=== PATIENT | female | born 1960 | race Asian ===

== ENCOUNTER 2017-10-25 14:35 | Outpatient (REF) | payer OTHER, SELFPAY | END 2017-10-25 14:55 | LOC: NCHCN 14:35 | PROVIDERS: PCP Specialist/Technologist Athletic Trainer; Visit Provider Specialist/Technologist Athletic Trainer | DX: N39.0 Urinary tract infection, site not specified (principal) | CPT/HCPCS: 87077; 87086; 87186 ==

== ENCOUNTER 2017-12-25 05:02 | Emergency (ER) | payer OTHER, SELFPAY ==
[2017-12-25 05:10] VITALS: BP 138/74; PULSE 110; RESP 16; TEMP 36.6; O2SAT 98
--- NOTE | 2017-12-25 05:31 | W.ED.GENAD ---
Discharge Plan Disposition Patient Disposition: HOME Discharge Details Chief Complaint: Sorethroat Clinical Impression: Acute streptococcal pharyngitis Primary Care Provider: Kyle Bustos ED Provider: Chepe Becerra Home Meds and New Rx's Prescriptions: Continue lancets [OneTouch Delica Lancets] 1 EACH misc 1 ea Miscellaneous DAILY Qty: 100 RF: 4 AEROCHAMBER 1 EACH spacer 1 ea Miscellaneous PRN Qty: 1 RF: 0 albuterol sulfate 8.5 GM HFA aerosol inhaler 1 - 2 puff Inhalation Q6H PRN Qty: 1 RF: 0 albuterol sulfate 8.5 GM HFA aerosol inhaler 1 - 2 puff Inhalation Q4H PRN Qty: 1 RF: 0 blood sugar diagnostic [OneTouch Ultra Test] 1 EACH strip 1 strip Miscellaneous DAILY Qty: 100 RF: 4 fluticasone [Flonase Allergy Relief] 9.9 ML spray,suspension 2 spry NS DAILY Qty: 1 RF: 3 simvastatin 40 MG tablet 40 mg PO DAILY Qty: 90 RF: 3 lisinopril 2.5 MG tablet 2.5 mg PO DAILY Qty: 90 RF: 3 mometasone-formoterol [Dulera] 8.8 GM HFA aerosol inhaler 1 - 2 puff Inhalation BID Qty: 120 RF: 11 levothyroxine 88 MCG tablet 88 mcg PO DAILY Qty: 90 RF: 3 metformin 1,000 MG tablet 1,000 mg PO BID Qty: 180 RF: 3 Discharge Instructions Instructions: Strep Throat (ED) Additional Instructions: Please drink plenty of fluid and allow for plenty of rest over the next few day. Please contact your primary care physician to arrange follow-up. Return to the ER for any worsening or new concerning symptoms. Referrals: Kyle Bustos [Primary Care Provider] - Medical Decision Making 57-year-old female with sore throat over the past 1 day, associated fever and body aches. Rapid strep test positive. Plan to treat with ibuprofen, Tylenol, penicillin IM. Patient was encouraged to rest over the next few days drink plenty of fluid. I advised follow-up with her primary care physician. Usual and customary discharge instructions were provided the patient and she verbalized understanding importance of adherence. HPI General Mode of arrival: ambulatory. Date/Time Provider Initiated Documentation: 12/25/17 05:19. Limitations to Documentation: no limitations. Information obtained by: patient. HPI Narrative: 57-year-old female presents with chief complaint of sore throat. Patient notes sore throat started yesterday. Sore throat is now severe. Worse when she swallows. No associated cough. She does have associated diffuse body aches. Related Data Home Medications Medication Instructions Recorded Confirmed lancets [WeYAPTouch Julianna Lancets] #100 ea 06/08/12 albuterol sulfate 1 - 2 puff INHALATION Q6H PRN #1 05/24/13 12/25/17 inhaler albuterol sulfate 1 - 2 puff INHALATION Q4H PRN #1 08/13/14 12/25/17 inhaler blood sugar diagnostic [WeYAPTouch #100 strip 08/20/14 Ultra Test] fluticasone [Flonase Allergy 2 spry NS DAILY #1 bottle 02/07/16 12/25/17 Relief] simvastatin 40 mg PO DAILY #90 tab-cap 09/08/16 12/25/17 lisinopril 2.5 mg PO DAILY #90 tab 12/01/16 12/25/17 mometasone-formoterol [Dulera] 1 - 2 puff INHALATION BID #120 puff 01/06/17 12/25/17 levothyroxine 88 mcg PO DAILY #90 tab-cap 01/21/17 12/25/17 metformin 1,000 mg PO BID #180 tab-cap 04/20/17 12/25/17 Previous Rx's Medication Instructions Recorded lisinopril 2.5 mg PO DAILY #90 tab 12/01/16 mometasone-formoterol [Dulera] 1 - 2 puff INHALATION BID #120 puff 01/06/17 levothyroxine 88 mcg PO DAILY #90 tab-cap 01/21/17 metformin 1,000 mg PO BID #180 tab-cap 04/20/17 Allergies Allergy/AdvReac Type Severity Reaction Status Date / Time No Known Allergies Allergy Unverified 12/25/17 05:15 General Stated Complaint: Sorethroat PARDEEP: 3 Review of Systems Review of Systems All systems reviewed & are unremarkable except as noted in HPI and below ENT Reports as per HPI Genitourinary Comments: chronic intermittent flank pain bilateral PFSH Family History Mother Essential hypertension Hyperlipidemia Father Heart disease Hyperlipidemia Cerebrovascular accident Brother Essential hypertension Cerebrovascular accident Grandfather Essential hypertension Cerebrovascular accident Grandfather Essential hypertension Cerebrovascular accident Grandmother Essential hypertension Cerebrovascular accident Grandmother Cerebrovascular accident Brother Cerebrovascular accident Son No problems noted. Daughter No problems noted. Daughter No problems noted. Medical History Asthma DM (diabetes mellitus) Heart murmur Hypothyroidism Obstructive sleep apnea reactive lung disease Social History Smoking/Tobacco Use Status: Never Surgical History Colonoscopy - MAC (09/30/15) Exam Const General: cooperative and no acute distress HENMT Head: normocephalic and atraumatic Mouth: moist mucous membranes Throat: abnormal tonsil bilaterally erythema and exudates and posterior oropharynx abnormal erythema Eyes Conjunctivae: normal conjunctivae Sclera: normal sclerae EOM: EOM intact bilaterally Neck Neck: trachea midline and supple Resp Auscultation: clear to auscultation bilaterally, no rales, no rhonchi and no wheezes Cardio Jugular venous pressure: no JVD Rate: regular rate and not tachycardic Rhythm: regular rhythm Heart Sounds: murmur systolic II/ GI Palpation: soft, not firm, no guarding, no masses, not rigid and nontender Skin General skin exam: no rashes or lesions noted Neuro General: alert, awake, oriented x3 and tone normal Extrem General: no edema Course Vital Signs Temperature 36.6 C 12/25/17 05:10 Pulse 110 H 12/25/17 05:10 Respiratory Rate 16 12/25/17 05:10 Blood Pressure 138/74 12/25/17 05:10 Pulse Oximetry 98 12/25/17 05:10 Temperature 36.6 C 12/25/17 05:10 Temperature Source Temporal Artery Scan 12/25/17 05:10 Pulse 110 H 12/25/17 05:10 Respiratory Rate 16 12/25/17 05:10 Respiratory Effort 12/25/17 05:13 Blood Pressure 138/74 12/25/17 05:10 Blood Pressure Position Sitting 12/25/17 05:10 Pulse Oximetry 98 12/25/17 05:10 Oxygen Delivery Method Room Air 12/25/17 05:10 Oxygen Flow Rate 0 11/10/18 05:10 Pain Level 6 12/25/17 05:10 Lab/Test Results Lab/Test Results: POC Strep Test-ROXANNA(Rapid) Start: 12/25/17 05:17 Freq: .Rapid Strep Test Status: Active Protocol: Document 12/25/17 05:22 BS (Rec: 12/25/17 05:22 BS [id number]) Strep test-ROXANNA(Rapid)-POC POC-Strep test-ROXANNA (Rapid) Positive POC-Strep test-ROXANNA (Rapid) Positive
[2017-12-25] MEDS: Acetaminophen 325 MG TAB 650 MG PO (05:38)
[2017-12-25] MEDS: Ibuprofen 400 MG TAB PO (05:38)
--- NOTE | 2017-12-25 05:39 | ED.GENADUL_ITS ---
Discharge Plan Disposition Patient Disposition: HOME Discharge Details Chief Complaint: Sorethroat Clinical Impression: Acute streptococcal pharyngitis Primary Care Provider: Kyle Bustos ED Provider: Chepe Becerra Home Meds and New Rx's Prescriptions: Continue lancets [OneTouch Delica Lancets] 1 EACH misc 1 ea Miscellaneous DAILY Qty: 100 RF: 4 AEROCHAMBER 1 EACH spacer 1 ea Miscellaneous PRN Qty: 1 RF: 0 albuterol sulfate 8.5 GM HFA aerosol inhaler 1 - 2 puff Inhalation Q6H PRN Qty: 1 RF: 0 albuterol sulfate 8.5 GM HFA aerosol inhaler 1 - 2 puff Inhalation Q4H PRN Qty: 1 RF: 0 blood sugar diagnostic [OneTouch Ultra Test] 1 EACH strip 1 strip Miscellaneous DAILY Qty: 100 RF: 4 fluticasone [Flonase Allergy Relief] 9.9 ML spray,suspension 2 spry NS DAILY Qty: 1 RF: 3 simvastatin 40 MG tablet 40 mg PO DAILY Qty: 90 RF: 3 lisinopril 2.5 MG tablet 2.5 mg PO DAILY Qty: 90 RF: 3 mometasone-formoterol [Dulera] 8.8 GM HFA aerosol inhaler 1 - 2 puff Inhalation BID Qty: 120 RF: 11 levothyroxine 88 MCG tablet 88 mcg PO DAILY Qty: 90 RF: 3 metformin 1,000 MG tablet 1,000 mg PO BID Qty: 180 RF: 3 Discharge Instructions Instructions: Strep Throat (ED) Additional Instructions: Please drink plenty of fluid and allow for plenty of rest over the next few day. Please contact your primary care physician to arrange follow-up. Return to the ER for any worsening or new concerning symptoms. Referrals: Kyle Bustos [Primary Care Provider] - Medical Decision Making 57-year-old female with sore throat over the past 1 day, associated fever and body aches. Rapid strep test positive. Plan to treat with ibuprofen, Tylenol, penicillin IM. Patient was encouraged to rest over the next few days drink plenty of fluid. I advised follow-up with her primary care physician. Usual and customary discharge instructions were provided the patient and she verbalized understanding importance of adherence. HPI General Mode of arrival: ambulatory . Date/Time Provider Initiated Documentation: 12/25/17 05:19 . Limitations to Documentation: no limitations . Information obtained by: patient . HPI Narrative: 57-year-old female presents with chief complaint of sore throat. Patient notes sore throat started yesterday. Sore throat is now severe. Worse when she swallows. No associated cough. She does have associated diffuse body aches. Related Data Home Medications Medication Instructions Recorded Confirmed lancets [ETF SecuritiesTouch Julianna Lancets] #100 ea 06/08/12 albuterol sulfate 1 - 2 puff INHALATION Q6H PRN #1 05/24/13 12/25/17 inhaler albuterol sulfate 1 - 2 puff INHALATION Q4H PRN #1 08/13/14 12/25/17 inhaler blood sugar diagnostic [ETF SecuritiesTouch #100 strip 08/20/14 Ultra Test] fluticasone [Flonase Allergy 2 spry NS DAILY #1 bottle 02/07/16 12/25/17 Relief] simvastatin 40 mg PO DAILY #90 tab-cap 09/08/16 12/25/17 lisinopril 2.5 mg PO DAILY #90 tab 12/01/16 12/25/17 mometasone-formoterol [Dulera] 1 - 2 puff INHALATION BID #120 puff 01/06/1712/02 levothyroxine 88 mcg PO DAILY #90 tab-cap 01/21/17 12/25/17 metformin 1,000 mg PO BID #180 tab-cap 04/20/17 12/25/17 Previous Rx's Medication Instructions Recorded lisinopril 2.5 mg PO DAILY #90 tab 12/01/16 mometasone-formoterol [Dulera] 1 - 2 puff INHALATION BID #120 puff 01/06/17 levothyroxine 88 mcg PO DAILY #90 tab-cap 01/21/17 metformin 1,000 mg PO BID #180 tab-cap 04/20/17 Allergies Allergy/AdvReac Type Severity Reaction Status Date / Time No Known Allergies Allergy Unverified 12/25/17 05:15 General Stated Complaint: Sorethroat PARDEEP: 3 Review of Systems Review of Systems All systems reviewed & are unremarkable except as noted in HPI and below ENT Reports as per HPI Genitourinary Comments: chronic intermittent flank pain bilateral PFSH Family History Mother Essential hypertension Hyperlipidemia Father Heart disease Hyperlipidemia Cerebrovascular accident Brother Essential hypertension Cerebrovascular accident Grandfather Essential hypertension Cerebrovascular accident Grandfather Essential hypertension Cerebrovascular accident Grandmother Essential hypertension Cerebrovascular accident Grandmother Cerebrovascular accident Brother Cerebrovascular accident Son No problems noted. Daughter No problems noted. Daughter No problems noted. Medical History Asthma DM (diabetes mellitus) Heart murmur Hypothyroidism Obstructive sleep apnea reactive lung disease Social History Smoking/Tobacco Use Status: Never Surgical History Colonoscopy - MAC (09/30/15) Exam Const General: cooperative and no acute distress HENMT Head: normocephalic and atraumatic Mouth: moist mucous membranes Throat: abnormal tonsil bilaterally erythema and exudates and posterior oropharynx abnormal erythema Eyes Conjunctivae: normal conjunctivae Sclera: normal sclerae EOM: EOM intact bilaterally Neck Neck: trachea midline and supple Resp Auscultation: clear to auscultation bilaterally, no rales, no rhonchi and no wheezes Cardio Jugular venous pressure: no JVD Rate: regular rate and not tachycardic Rhythm: regular rhythm Heart Sounds: murmur systolic II/ GI Palpation: soft, not firm, no guarding, no masses, not rigid and nontender Skin General skin exam: no rashes or lesions noted Neuro General: alert, awake, oriented x3 and tone normal Extrem General: no edema Course Vital Signs Temperature 36.6 C 12/25/17 05:10 Pulse 110 H 12/25/17 05:10 Respiratory Rate 16 12/25/17 05:10 Blood Pressure 138/74 12/25/17 05:10 Pulse Oximetry 98 12/25/17 05:10 Temperature 36.6 C 12/25/17 05:10 Temperature Source Temporal Artery Scan 12/25/17 05:10 Pulse 110 H 12/25/17 05:10 Respiratory Rate 16 12/25/17 05:10 Respiratory Effort 12/25/17 05:13 Blood Pressure 138/74 12/25/17 05:10 Blood Pressure Position Sitting 12/25/17 05:10 Pulse Oximetry 98 12/25/17 05:10 Oxygen Delivery Method Room Air 12/25/17 05:10 Oxygen Flow Rate 0 11/10/18 05:10 Pain Level 6 12/25/17 05:10 Lab/Test Results Lab/Test Results: POC Strep Test-ROXANNA(Rapid) Start: 12/25/17 05: 17 Freq: .Rapid Strep Test Status: Active Protocol: Document 12/25/17 05:22 BS (Rec: 12/25/17 05:22 BS [id number]) Strep test-ROXANNA(Rapid)-POC POC-Strep test-ROXANNA (Rapid) Positive POC-Strep test-ROXANNA (Rapid) Positive
[2017-12-25 05:44] VITALS: BP 138/74; PULSE 110; RESP 16; TEMP 36.6; O2SAT 98
== END 2017-12-25 05:45 | disposition home or self-care (01) ==
LOC: ER 05:49
PROVIDERS: Emergency Provider Student in an Organized Health Care Education/Training Program; PCP Specialist/Technologist Athletic Trainer
DX: J02.0 Streptococcal pharyngitis (principal); E11.9 Type 2 diabetes mellitus without complications; Z79.84 Long term (current) use of oral hypoglycemic drugs
CPT/HCPCS: 87880; 96372; 99284; J0561

== ENCOUNTER 2018-01-10 09:58 | Outpatient (REF) | payer OTHER, SELFPAY ==
[2018-01-10 21:32] LABS: HCT 37.3 % (36.0-46.0); Mean Corp. HGB Concentration 32.2 g/dL (32.0-36.0); Mean Corpuscular Hemoglobin 28.3 pg (27.0-33.0); Mean Platelet Volume 9.6 fL (8.0-11.0); Platelet Count 284 x1000/uL (130-400); RBC 4.24 m/cumm (4.00-5.20); RBC Distribution Width 14.2 % (11.7-14.6); White Blood Cell Count 5.86 k/cumm (4.4-10.8)
[2018-01-10 21:35] LABS: ALT 27 U/L (12-78); AST 14 U/L (15-37); Albumin 3.9 g/dL (3.4-5.0); Alkaline Phosphatase 47 U/L (46-116); BUN 14 mg/dL (7-18); Bilirubin, Total 0.4 mg/dL (0.2-1.0); CREATININE 0.67 mg/dL (0.55-1.02); Calcium 9.1 mg/dL (8.5-10.1); Chloride 102 mmol/L (98-107); Glucose 231 mg/dL (70-100); Potassium 4.3 mmol/L (3.5-5.1); Sodium 137 mmol/L (136-145); TSH (W/Ref FT4) 0.55 uIU/mL (0.358-3.74); Total Protein 7.6 g/dL (6.4-8.2)
== END 2018-01-10 10:18 ==
LOC: NCHCN 09:58
PROVIDERS: PCP Specialist/Technologist Athletic Trainer; Visit Provider Specialist/Technologist Athletic Trainer
DX: E87.6 Hypokalemia (principal); E11.65 Type 2 diabetes mellitus with hyperglycemia; R53.83 Other fatigue
CPT/HCPCS: 80053; 85027; 84443

== ENCOUNTER 2018-02-28 01:29 | Outpatient (CLI) | payer OTHER, SELFPAY ==
--- NOTE | 2018-02-28 09:02 | DI.RAD_ITS ---
SYMPTOMS/DIAGNOSIS: LOW BACK PAIN, M54.5 LUMBAR SPINE: There is sacralization of L 5. The vertebral bodies are well maintained in height. The disc spaces are well maintained. There are endplate osteophytes seen at L 3 and L 4. There is no scoliosis, spondylolysis or spondylolisthesis. There are mild facet degenerative changes. Surgical clips are seen in the right upper quadrant. IMPRESSION: Mild degenerative changes.
== END 2018-02-28 01:49 ==
PROVIDERS: PCP Specialist/Technologist Athletic Trainer; Visit Provider Specialist/Technologist Athletic Trainer
DX: M54.5 Low back pain (principal); M47.816 Spondylosis without myelopathy or radiculopathy, lumbar region
CPT/HCPCS: 72110

== ENCOUNTER 2018-03-10 00:34 | Outpatient (CLI) | payer OTHER, SELFPAY ==
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
--- NOTE | 2018-03-10 15:56 | DI.VRAD_ITS ---
EXAM: MR Lumbar Spine Without and With Contrast. EXAM DATE/TIME: 03/10/2018 11:50 AM CLINICAL HISTORY: 57 years old, female; Pain; Low back pain and lumbago with sciatica; Bilateral TECHNIQUE: Multiplanar magnetic resonance images of the lumbar spine without and with intravenous contrast. COMPARISON: CR XR lumbar spine complete 02/28/2018 8:46 AM FINDINGS: Vertebrae: Moderate degenerative spondylitic changes. No acute findings. Spinal cord: Normal signal. No cord compression. DISCS/SPINAL CANAL/NEURAL FORAMINA: L1-L2: No significant disc disease. No stenosis. L2-L3: No significant disc disease. No stenosis. L3-L4: Disc desiccation with circumferential disc bulge and moderate canal stenosis secondary to bulging disc and facet and ligamentum hypertrophic changes. There is moderate left and mild right neural foraminal narrowing L4-L5: There is disc desiccation with thin circumferential disc bulge. The bulging disc abuts traversing nerve roots and combined with facet hypertrophic changes causes overall mild circumferential canal stenosis. There is moderate bilateral neural foraminal narrowing. L5-S1: Normal for age without significant stenosis. Kidneys and ureters: Too numerous to count bilateral renal cysts are present. No concerning features of the cyst on this exam, but the cysts are incompletely characterized. Findings are compatible with polycystic kidney disease given the large number of cysts. IMPRESSION: 1. Multilevel degenerative changes. No severe canal or severe neural foraminal stenosis. 2. Polycystic kidney disease. Dictated and Authenticated by: Mart Bertrand MD. Ordering:TABATHA Wright MD
== END 2018-03-10 00:54 ==
PROVIDERS: PCP Specialist/Technologist Athletic Trainer; Visit Provider Specialist/Technologist Athletic Trainer
DX: M54.5 Low back pain (principal); R20.9 Unspecified disturbances of skin sensation; R29.898 Other symptoms and signs involving the musculoskeletal system; M51.17 Intervertebral disc disorders with radiculopathy, lumbosacral region; M47.27 Other spondylosis with radiculopathy, lumbosacral region
CPT/HCPCS: 72148

== ENCOUNTER 2018-04-19 13:09 | Outpatient (CLI) | payer OTHER, SELFPAY ==
--- NOTE | 2018-04-19 06:00 | DI.RAD_ITS ---
SYMPTOM/DIAGNOSIS: LUMBAR SPONDYLOSIS, LUMBAR MEDIAL BRANCH BLOCK C-ARM: Fluoroscopy Time: 72.9 seconds Fluoroscopy was provided for guidance with lumbar spine pain clinic injection. Please see procedure note for details.
[2018-04-19 13:14] VITALS: BP 135/78; PULSE 93; RESP 18; TEMP 37.1; O2SAT 98
--- NOTE | 2018-04-19 14:18 | PDOC.PAIN ---
Pain Clinic Procedure Note Current Active Problems Problem Status Onset Lumbosacral spondylosis without myelopathy Acute Lumbar/Sacral Medial Branch Blocks FEI CRUZ has been referred [facility] the [facility] for lumbar/sacral medial branch blocks. COMMENTS: She was previously evaluated in our clinic Patient was interviewed and the medical record reviewed. There were no medical, pharmacologic, radiographic or other structural contraindications to attempting fluoroscopically guided local anesthetic lumbar/sacral medial branch blocks. Risks and expected side effects as well as potential benefit of the procedure were reviewed and voiced concerns addressed. The printed consent form was signed and witnessed. Standard time-out procedure was performed. Patient was placed in the prone position on the fluoroscopy table and automated blood pressure cuff and pulse oximeter applied. The skin entry points for approaching the anatomic target points of the segmental medial branches of bilateral L3-L5DR were identified with fluoroscopy and marked. Following thorough Chlorhexadine preparation of the skin and draping and 1% lidocaine infiltration of the skin entry points and subcutaneous tissues, a 25 gauge 3.5 spinal needle was placed under fluoroscopic guidance down on to the target point for each respective segmental medial branch.Position was confirmed in A/P, oblique and lateral views with 0.25ml of omnipaque 240. At this point .5ml of 0.5% Bupivacaine was injected at each segmental nerve. The needles were then removed without difficulty. Vital signs were stable throughout the procedure and were as recorded in the docflowsheet by the nursing staff. Follow up plans and appointments were discussed and was instructed to keep careful note of how the usual pain was modified by these injections. Specifically was asked to keep a pain diary for the next 24 hours using a numeric pain scale of 0-10 and report these results at the follow-up visit. Post procedure instruction was given as documented in the nursing documentation and having met discharge criteria. Patient was discharged from the [facility]. Based on the medial branches blocked today, if the patient has adequate relief and we are able to proceed to radiofrequency ablation, the treatment should result in the denervation of the bilateral L4-L5 abd K5-S1 FACET JOINTS. We would expect to denervate a total of 4 facets during the radiofrequency ablation. COMMENTS: She will call back with her 1-4 hour post-procedure pain scores. CC: Kyle Bustos
[2018-04-19 14:27] VITALS: BP 116/81; PULSE 87; RESP 19; O2SAT 100
[2018-04-19] MEDS: Omnipaque 240 MG/ML 50 ML BTL IJ (14:28)
[2018-04-19] MEDS: Bupivacaine 0.5% Pres-Free 10 ML VIAL IJ (14:29)
== END 2018-04-19 13:29 ==
PROVIDERS: PCP Specialist/Technologist Athletic Trainer; Visit Provider Preventive Medicine Occupational Medicine
DX: M47.817 Spondylosis without myelopathy or radiculopathy, lumbosacral region (principal)
CPT/HCPCS: 64493; 64494; 72100; Q9967

== ENCOUNTER 2018-05-04 11:24 | Outpatient (REF) | payer OTHER, SELFPAY ==
[2018-05-04 21:09] LABS: Cholesterol 199 mg/dL (50-200); HDL Cholesterol 54 mg/dL (40-60); LDL CHOLESTEROL 104 mg/dL (<100); Triglyceride 251 mg/dL (30-150)
== END 2018-05-04 11:44 ==
LOC: NCHCN 11:24
PROVIDERS: PCP Specialist/Technologist Athletic Trainer; Visit Provider Specialist/Technologist Athletic Trainer
DX: E78.5 Hyperlipidemia, unspecified (principal)
CPT/HCPCS: 80061; 83721

== ENCOUNTER 2018-05-31 00:13 | Outpatient (CLI) | payer OTHER, SELFPAY ==
--- NOTE | 2018-05-31 07:47 | DI.MAMMO_ITS ---
SYMPTOMS/DIAGNOSIS: SCREENING, PREVENTATIVE CARE, Z00.00 MAMMOGRAMS: Mammograms were interpreted according to the usual protocol including computer analysis with CAD system, tomosynthesis and C view imaging. There are moderate fibronodular densities in both breasts, which somewhat limits the sensitivity of the examination. There is no dominant mass. There are no suspicious calcifications and there has been no significant interval change when compared with prior images. SUMMARY: No evidence of malignancy, category 1. Yearly screening mammography is recommended. Breast density category C. SA ASSESSMENT OF FINDINGS: Negative. Category 1. Patient will receive a letter notifying them of these results. Bi-RADS category C. The breasts are heterogeneously dense, which may obscure small masses.
== END 2018-05-31 00:33 ==
PROVIDERS: PCP Specialist/Technologist Athletic Trainer; Visit Provider Specialist/Technologist Athletic Trainer
DX: Z00.00 Encounter for general adult medical examination without abnormal findings (principal); Z12.31 Encounter for screening mammogram for malignant neoplasm of breast
CPT/HCPCS: 77063; 77067

== ENCOUNTER 2018-06-02 21:18 | Emergency (ER) | payer OTHER, SELFPAY ==
[2018-06-02 21:21] VITALS: BP 158/85; PULSE 109; RESP 16; TEMP 36.7; O2SAT 98
--- NOTE | 2018-06-02 21:23 | W.ED.GENAD ---
Discharge Plan Disposition Patient Disposition: HOME Condition: Good Discharge Details Chief Complaint: Urinary Clinical Impression: Urinary tract infection Primary Care Provider: Kyle Bustos ED Provider: Gio Cardenas [place] Meds and New Rx's Prescriptions: New phenazopyridine [Pyridium] 100 mg tablet 100 mg PO TID 0 Days Qty: 6 RF: 0 nitrofurantoin monohyd/m-cryst [Macrobid] 100 mg capsule 100 mg PO BID Qty: 10 RF: 0 Continued diclofenac sodium 1 % gel 4 gm TP QID PRN (Reason: low back pain) 7 Days Qty: 100 RF: 11 glipizide 5 mg tablet 5 mg PO BID Qty: 90 RF: 0 omeprazole 20 mg capsule,delayed release(DR/EC) 20 mg PO DAILY RF: 0 Flovent HFA 110 mcg/actuation HFA aerosol inhaler 1 puff IH BID RF: 0 lancets [OneTouch Delica Lancets] 1 EACH misc 1 ea Miscellaneous DAILY Qty: 100 RF: 4 AEROCHAMBER 1 EACH spacer 1 ea Miscellaneous PRN Qty: 1 RF: 0 OneTouch Ultra Test 1 EACH strip 1 strip Miscellaneous DAILY Qty: 100 RF: 4 simvastatin 40 MG tablet 40 mg PO DAILY Qty: 90 RF: 3 lisinopril 2.5 MG tablet 2.5 mg PO DAILY Qty: 90 RF: 3 Dulera 8.8 GM HFA aerosol inhaler 1 - 2 puff Inhalation BID Qty: 120 RF: 11 levothyroxine 88 MCG tablet 88 mcg PO DAILY Qty: 90 RF: 3 fluticasone propionate [Flonase Allergy Relief] 50 mcg/actuation spray,suspension 1 spray NS DAILY Qty: 1 RF: 3 Discharge Instructions Instructions: Urinary Tract Infection in Women (ED) Additional Instructions: You do have a urinary tract infection. The Pyridium will help take care of the symptoms. The antibiotic should take care of the infection. Please follow-up with primary care next week. Please return to ED if you develop fever, vomiting, back pain, abdominal pain. Referrals: Kyle Bustos [Primary Care Provider] - Medical Decision Making Patient with classic cystitis symptoms. She is afebrile and has no systemic symptoms. Urine dip positive for blood and leukocytes. Micro pending but given symptoms would treat with Pyridium and Macrobid. Follow-up with primary care next week. Return to ED for fever, chills, vomiting, back pain, abdominal pain. Lab Data Lab results reviewed: Yes I reviewed the patient's lab results. HPI General Mode of arrival: ambulatory. Date/Time Provider Initiated Documentation: 06/02/18 21:21. Limitations to Documentation: no limitations. Information obtained by: patient. HPI Narrative: Patient presents to ED with complaints of dysuria and frequency that started this morning. She has a sense of urgency almost constantly. When she does urinate she has pain and only passes a little bit of urine. She has not had UTIs previously. She denies fevers or chills. She denies any new back pain, she has chronic unchanged back pain. She has no abdominal pain. She has no nausea vomiting. Related Data Home Medications Medication Instructions Recorded Confirmed lancets [OneTouch Delica Lancets] #100 ea 06/08/12 04/19/18 OneTouch Ultra Test #100 strip 08/20/14 04/19/18 simvastatin 40 mg PO DAILY #90 tab-cap 09/08/16 06/02/18 lisinopril 2.5 mg PO DAILY #90 tab 12/01/16 06/02/18 Dulera 1 - 2 puff INHALATION BID #120 puff 01/06/17 06/02/18 levothyroxine 88 mcg PO DAILY #90 tab-cap 01/21/17 06/02/18 fluticasone propionate 110 1 puff IH BID 03/24/18 06/02/18 mcg/actuation HFA aerosol inhaler fluticasone propionate 50 1 spray NS DAILY #1 gm 03/24/18 06/02/18 mcg/actuation nasal spray,suspension glipizide 5 mg tablet 5 mg PO BID #90 tab 03/24/18 06/02/18 omeprazole 20 mg capsule,delayed 20 mg PO DAILY 03/24/18 06/02/18 release diclofenac 1 % topical gel 4 gm TP QID PRN 7 Days #100 gm 03/29/18 06/02/18 nitrofurantoin monohyd/m-cryst 100 mg PO BID #10 cap 06/02/18 [Macrobid] phenazopyridine [Pyridium] 100 mg PO TID 0 Days #6 tab 06/02/18 Previous Rx's Medication Instructions Recorded lisinopril 2.5 mg PO DAILY #90 tab 12/01/16 Dulera 1 - 2 puff INHALATION BID #120 puff 01/06/17 levothyroxine 88 mcg PO DAILY #90 tab-cap 01/21/17 diclofenac 1 % topical gel 4 gm TP QID PRN 7 Days #100 gm 03/29/18 nitrofurantoin monohyd/m-cryst 100 mg PO BID #10 cap 06/02/18 [Macrobid] phenazopyridine [Pyridium] 100 mg PO TID 0 Days #6 tab 06/02/18 Allergies Allergy/AdvReac Type Severity Reaction Status Date / Time No Known Allergies Allergy Unverified 06/02/18 21:27 General Stated Complaint: Urinary PARDEEP: 4 Review of Systems Review of Systems As documented in HPI otherwise negative as below. Const: no fever, chills, weakness Resp: no cough, SOB, pleuritic pain CV: no CP, diaphoresis, edema, syncope GI: no abdominal pain, nausea, vomiting, diarrhea Neuro: no headache, numbness, focal weakness, confusion [facility] Medical History Asthma (Chronic) Back pain (Chronic) DM (diabetes mellitus) (Chronic) Heart murmur (Chronic) Hyperlipidemia (Chronic) Hypothyroidism (Chronic) Obstructive sleep apnea (Chronic) Onychomycosis (Chronic) Polycystic kidney disease (Chronic) Restrictive lung disease (Chronic) Uterine leiomyoma (Chronic) Surgical History Colonoscopy - MAC (Inactive 09/30/15) S/P cholecystectomy (Inactive) Social History Smoking/Tobacco Use Status: Never Alcohol Intake: never Drug use: Never Substance use type: does not use Household members: spouse Housing: house Number of Children: 3 What type of physical activity do you participate in: none Do you feel safe in your relationship?: Yes Exam Narrative Exam Narrative: Vitals: Afebrile. Slightly tachycardic and hypertensive. Const: Obese female in NAD. HEENT: NC/AT. Normal facial exam. GI: Soft. NT/ND. No guarding or rebound. Back: No CVAT. Neuro: A+O x 3. CN grossly in tact. Good strength and no focal deficit. Course Vital Signs Temperature 98.1 F 06/02/18 21:21 Pulse 109 H 06/02/18 21:21 Respiratory Rate 16 06/02/18 21:21 Blood Pressure 158/85 H 06/02/18 21:21 Pulse Oximetry 98 06/02/18 21:21 Temperature 98.1 F 06/02/18 21:21 Temperature Source Skin 06/02/18 21:21 Pulse 109 H 06/02/18 21:21 Respiratory Rate 16 06/02/18 21:21 Blood Pressure 158/85 H 06/02/18 21:21 Pulse Oximetry 98 06/02/18 21:21 Oxygen Delivery Method Room Air 06/02/18 21:21 Oxygen Flow Rate 0 06/02/18 21:21 Pain Level 9 06/02/18 21:21
[2018-06-02 21:29] LABS: Bilirubin Negative (Negative); Blood Large (Negative); Clarity Clear; Glucose 250 mg/dL (Negative); Ketones Negative (Negative); Leukocyte Esterase Large (Negative); Nitrite Negative (Negative); Specific Gravity 1.015 (1.005-1.025); Urobilinogen 0.2 EU/dL (Up TO 0.2); pH 6.5 (5-8)
[2018-06-02] MEDS: MacroBID 100 MG CAP PO (21:48)
[2018-06-02] MEDS: Phenazopyridine 100 MG TAB PO (21:48)
[2018-06-02 21:49] LABS: Bacteria Moderate HPF (Negative); C & S Indicated? Yes; Casts Negative LPF (Negative); Crystals Negative HPF (Negative); Epithelial Cells Negative HPF (Negative); Mucus Negative (Negative); Other Cells Negative (Negative); RBC >50 (0-2); WBC >50 HPF (0-5)
[2018-06-02 21:52] VITALS: BP 130/73; PULSE 104; RESP 16; O2SAT 96
== END 2018-06-02 22:21 | disposition home or self-care (01) ==
PROVIDERS: Emergency Provider Emergency Medicine; PCP Specialist/Technologist Athletic Trainer
DX: N39.0 Urinary tract infection, site not specified (principal)
CPT/HCPCS: 87077; 99283; 81003; 81015; 87086; 87186

== ENCOUNTER 2018-06-22 01:02 | Outpatient (CLI) | payer OTHER, SELFPAY ==
--- NOTE | 2018-06-22 10:25 | DIABASSESS_ITS ---
DESCRIPTION/ASSESSMENT: Verónica presents for diabetes self management with a focus on medical nutrition therapy. She has a comorbidity of Polycystic Kidney Disease which has initiated a change in her medication regimen as she describes it. NUTRITION: Verónica eats fried plantain for breakfast; meat sandwich for lunch; meat/fish and steamed vegetables for supper. She uses whole grains. Last night she had soup. She denies snacking or eating sweets. States her weight is stable with BMI 32 with recent weight loss according to her medical records. MONITORING: A1c 7.1 05/04/18 Verónica monitors every morning all 266=188 range. In March, prior to the change in medication blood sugars 127-171. Today she tests at 3AM at 181. She drank milk and morning blood sugar 225. She has experienced hypoglycemia at 51mg/dl with symptoms of shakiness. MEDICATION: Discontinued Metformin; now taking Glipizide at each meal. She is wondering if there are other medications as she does not believe this is working for her. PHYSICAL ACTIVITY: Limited secondary to back pain due to broken disk. She does her own housework. STRESS: Denies except for pain. INTERVENTION: DSME is provided in the following AADE 7 areas based on patients interest and assessment of needs: Food - review diabetes food guide focused on carbohydrate portions and distribution. Physical Activity - discussed options for movement. She feels her pain limits her but she moves through it and is as active as she can be. Medication - discussed medication options including insulin and GLP1 inhibitors. She is shown the pen and its use. She is able to inject herself with normal saline to get the feel of self-injection. Monitoring - Discussed monitoring blood sugars at different times of the day and she agrees with this. ACTION PLAN: Will monitor blood sugars fasting and before bed We will follow up early next week to discuss results and possible injection medications. Individual MNT __2__ units billed for TIME IN: 1023 OUT: 1110 visit. No DM group education series being offered at this time. 06/29/18 TC to Verónica. Blood sugars are the same fasting and evening in the mid 200s. She is willing to take an injection once a day although the Trulicity or Ozempic GLP1 inhibitors once a week is her preference. Did not find a contra-indication with polycystic kidney disease. She wishes to initiate Injectable medication at this time. MANDA Reynoso, CDE
== END 2018-06-22 01:22 ==
PROVIDERS: PCP Specialist/Technologist Athletic Trainer; Visit Provider Dietitian, Registered
DX: E11.9 Type 2 diabetes mellitus without complications (principal); Z79.84 Long term (current) use of oral hypoglycemic drugs; Z71.3 Dietary counseling and surveillance
CPT/HCPCS: 97802

== ENCOUNTER 2018-07-05 08:33 | Outpatient (CLI) | payer OTHER, SELFPAY ==
--- NOTE | 2018-07-05 06:00 | DI.RAD_ITS ---
SYMPTOMS/DIAGNOSIS: LUMBAR SPONDYLOSIS PAIN CLINIC LUMBAR SPINE: Fluoroscopy Time: 71.9 sec Images submitted from the Pain Clinic demonstrate needle positioning over the right lateral portion of the spine at L5 and S1 in conjunction with a radiofrequency ablation carried out by Dr. Tello. Please see the procedure report for further information.
[2018-07-05 08:41] VITALS: BP 129/73; PULSE 73; RESP 20; TEMP 36.8; O2SAT 98
[2018-07-05] MEDS: Midazolam 2 MG/2 ML VIAL IVP (10:14)
[2018-07-05] MEDS: fentaNYL 100 MCG/2 ML VIAL IVP (10:14)
[2018-07-05] MEDS: Lactated Ringers 1,000 ML 80 ML IV (10:20)
[2018-07-05 10:47] VITALS: BP 123/74; PULSE 69; RESP 16; O2SAT 96
--- NOTE | 2018-07-05 10:50 | PDOC.PAIN ---
Pain Clinic Procedure Note Current Active Problems Problem Status Onset Lumbosacral spondylosis without myelopathy Acute LUMBAR/SACRAL MEDIAL BRANCH RADIOFREQUENCY FEI CRUZ has been referred to the [facility] for radiofrequency treatment of chronic axial back pain. FEI has had long standing back pain thought to be facet joint generated and which has been refractory to other therapies. Local anesthetic medial branch blocks or intra-articular facet joint injections resulted in FEI reporting reduction of the usual axial component of pain for at least the duration of the local anesthetic effect. COMMENTS: Great relief with previous LMBBs Patient was interviewed and the medical record reviewed. There were no medical, pharmacologic, radiographic or other structural contraindications to attempting fluoroscopically guided radiofrequency treatment. Risks and expected side effects as well as potential benefit of the procedure were reviewed and voiced concerns addressed. The printed consent form was signed and witnessed. Standard time-out procedure was performed. Patient was placed in the prone position on the fluoroscopy table and automated blood pressure cuff and pulse oximeter applied. The skin entry points for approaching the anatomic target points of the segmental medial branches of bilateral L3-L5DR were identified with fluoroscopy and marked. Following thorough Chlorhexadine preparation of the skin and draping and 1% lidocaine infiltration of the skin entry points and subcutaneous tissues, a single 18 guage curved 10 cm 10mm active tip radiofrequency cannula was placed under fluoroscopic guidance along or across the anatomic course of each respective segmental medial branch. Each placement was stimulated at 50Hz and les then 0.5V for medial branch sensory localization and the at 2Hz and up to 3 times the sensory voltage without any evidence of distal myotomal stimulation. 1cc of 1% ;idocaine was injected at each site. At each placement a continuous mode radiofrequency treatment was done at 80 degrees C for 90secs . This radiofrequency treatment should result in the denervation of the bilateral L4-L5 and L5-S1 FACET JOINTS.~ A total of 4 facets were expected to be denervated from today's treatment. Vital signs were stable throughout the procedure and were as recorded in the docflowsheet by the nursing staff. If given, dosages of intravenous drugs for anxiolysis and analgesia were documented in the Medication Administration Record (MAR). Follow up plans and appointments were discussed. Post procedure instruction was given as documented in the nursing documentation and having met discharge criteria, FEI was discharged from the [facility]. COMMENTS: If this procedure gives her at least 6 months of pain relief, she can have this procedure repeated without repeating the LMBBs. CC: Kyle Bustos
[2018-07-05] MEDS: Bupivacaine 0.5% Pres-Free 10 ML VIAL IJ (10:54)
[2018-07-05] MEDS: Lidocaine 2% Pres-Free 5 ML VIAL IJ (10:54)
== END 2018-07-05 08:53 ==
PROVIDERS: PCP Specialist/Technologist Athletic Trainer; Visit Provider Preventive Medicine Occupational Medicine
DX: M47.817 Spondylosis without myelopathy or radiculopathy, lumbosacral region (principal); G89.29 Other chronic pain
CPT/HCPCS: 64635 ×2; 64636 ×2; 72100; J2250; J3010

== ENCOUNTER 2018-11-28 16:17 | Outpatient (REF) | payer OTHER, SELFPAY ==
[2018-11-28 21:39] LABS: Anion Gap 11.4 mmol/L (3-11); BUN 12 mg/dL (7-18); CO2 28.6 mmol/L (21.0-32.0); Calcium 9.4 mg/dL (8.5-10.1); Chloride 97 mmol/L (98-107); Glucose 271 mg/dL (70-100); Potassium 4.3 mmol/L (3.5-5.1); Sodium 137 mmol/L (136-145)
== END 2018-11-28 16:37 ==
LOC: NCHCN 16:17
PROVIDERS: PCP Specialist/Technologist Athletic Trainer; Visit Provider Nurse Practitioner Family
DX: I10 Essential (primary) hypertension (principal); E11.9 Type 2 diabetes mellitus without complications
CPT/HCPCS: 80048; 84443

== ENCOUNTER 2018-12-06 17:52 | Emergency (ER) | payer OTHER, SELFPAY ==
[2018-12-06 18:11] VITALS: BP 128/70; PULSE 82; RESP 16; TEMP 36.7; O2SAT 99
--- NOTE | 2018-12-06 18:22 | W.ED.GENAD ---
Discharge Plan Disposition Patient Disposition: HOME Condition: Stable Discharge Details Chief Complaint: Orthopedic Clinical Impression: Ankle pain, left Primary Care Provider: Kyle Bustos ED Provider: Robert Hickey Home Meds and New Rx's Prescriptions: New prednisone 20 mg tablet 60 mg PO DAILY 5 Days Qty: 15 RF: 0 Continued glipizide 5 mg tablet 5 mg PO BID Qty: 90 RF: 0 omeprazole 20 mg capsule,delayed release(DR/EC) 20 mg PO DAILY RF: 0 Flovent HFA 110 mcg/actuation HFA aerosol inhaler 1 puff IH BID RF: 0 (DME) lancets [OneTouch Delica Lancets] 1 EACH misc 1 ea Miscellaneous DAILY Qty: 100 RF: 4 AEROCHAMBER 1 EACH spacer 1 ea Miscellaneous PRN Qty: 1 RF: 0 (DME) OneTouch Ultra Test 1 EACH strip 1 strip Miscellaneous DAILY Qty: 100 RF: 4 simvastatin 40 MG tablet 40 mg PO DAILY Qty: 90 RF: 3 lisinopril 2.5 MG tablet 2.5 mg PO DAILY Qty: 90 RF: 3 Dulera 8.8 GM HFA aerosol inhaler 1 - 2 puff Inhalation BID Qty: 120 RF: 11 levothyroxine 88 MCG tablet 88 mcg PO DAILY Qty: 90 RF: 3 fluticasone propionate [Flonase Allergy Relief] 50 mcg/actuation spray,suspension 1 spray NS DAILY Qty: 1 RF: 3 allopurinol 100 mg Tablet 100 mg PO DAILY RF: 0 Discharge Instructions Additional Instructions: take the steroids as directed follow up with your primary care provider within 1 week if you have fevers, or the joint becomes red and warm to touch return to the emergency department Medical Decision Making 58 yo female with hx of gout states she has had pain in the left ankle and is unsure if this is the joint that gets affected when she has gout flares. She denies trauma or fall, nofevers or rashes. She is bearing weight and has full rom. Has pain over both medial and lateral malleolus without warmth, swelling or erythema, intact sensation and pulses. Exam consistent with either gout or tendonitis. Do not feel xrays indicated. No findings to suggest septic joint. Will start her on prednisone as she can't take ibuprofen due to PCOS. Advised f/u with pcp and return precautions given Differential Diagnosis Differential Diagnosis: strain, tedonitis, gout HPI General Mode of arrival: ambulatory. Date/Time Provider Initiated Documentation: 12/06/18 17:54. Limitations to Documentation: no limitations. Information obtained by: patient. History of Present Illness 58 year old F presents to the emergency department with the chief complaint of left ankle pain, described as moderate, Quality is described as aching, and it has been constant. No relieving factors improve symptom(s), No exacerbating factors reported . Patient did receive the following treatments prior to arrival, none Related Data Home Medications Medication Instructions Recorded Confirmed lancets [OneTouch DelTouristEye Lancets] #100 ea 06/08/12 12/06/18 OneTouch Ultra Test #100 strip 08/20/14 12/06/18 simvastatin 40 mg PO DAILY #90 tab-cap 09/08/16 12/06/18 lisinopril 2.5 mg PO DAILY #90 tab 12/01/16 12/06/18 Dulera 1 - 2 puff INHALATION BID #120 puff 01/06/17 12/06/18 levothyroxine 88 mcg PO DAILY #90 tab-cap 01/21/17 12/06/18 fluticasone propionate 110 1 puff IH BID 03/24/18 09/20/18 mcg/actuation HFA aerosol inhaler fluticasone propionate 50 1 spray NS DAILY #1 gm 03/24/18 12/06/18 mcg/actuation nasal spray,suspension glipizide 5 mg tablet 5 mg PO BID #90 tab 03/24/18 12/06/18 omeprazole 20 mg capsule,delayed 20 mg PO DAILY 03/24/18 12/06/18 release allopurinol 100 mg PO DAILY 12/06/18 12/06/18 prednisone 60 mg PO DAILY 5 Days #15 tab 12/06/18 Previous Rx's Medication Instructions Recorded lisinopril 2.5 mg PO DAILY #90 tab 12/01/16 Dulera 1 - 2 puff INHALATION BID #120 puff 01/06/17 levothyroxine 88 mcg PO DAILY #90 tab-cap 01/21/17 prednisone 60 mg PO DAILY 5 Days #15 tab 12/06/18 Allergies Allergy/AdvReac Type Severity Reaction Status Date / Time No Known Allergies Allergy Unverified 12/06/18 18:15 General Stated Complaint: Orthopedic PARDEEP: 4 Review of Systems Review of Systems ROS Unobtainable: All systems reviewed & are unremarkable except as noted in HPI and below Constitutional Constitutional: Denies chills, Denies fever(s) and Denies weakness ENT Ears, Nose, Mouth, and Throat: Denies change in voice Cardiovascular Cardiovascular: Denies chest pain and Denies dyspnea Respiratory Respiratory: Denies cough and Denies dyspnea Gastrointestinal Gastrointestinal: Denies abdominal pain, Denies nausea and Denies vomiting Musculoskeletal Musculoskeletal: Denies joint swelling Neurologic Neurologic: Denies weakness [facility] Social History Smoking/Tobacco Use Status: Never Alcohol Intake: never Drug use: Never Substance use type: does not use Household members: spouse Housing: house Number of Children: 3 What type of physical activity do you participate in: none Do you feel safe at home: Yes Do you feel safe in your relationship?: Yes Exam Const General: no acute distress Orientation: alert HENMT Head: normal to inspection Ears: external ears normal General nose exam: external nose normal Mouth: moist mucous membranes Eyes General: appearance normal, both eyes and all related structures Neck Neck: normal visual inspection Resp Effort & Inspection: normal respiratory effort and able to speak in complete sentences Cardio Rate: regular rate Skin General skin exam: no rashes or lesions noted Neuro General: alert and oriented x3 Extrem General: normal to inspection Psych Mental Status: mental status grossly normal Course Vital Signs Vital signs: Vital Signs Temperature 36.7 C 12/06/18 18:11 Pulse 82 12/06/18 18:11 Respiratory Rate 16 12/06/18 18:11 Blood Pressure 128/70 12/06/18 18:11 Pulse Oximetry 99 12/06/18 18:11 Temperature 36.7 C 12/06/18 18:11 Temperature Source Temporal Artery Scan 12/06/18 18:11 Pulse 82 12/06/18 18:11 Respiratory Rate 16 12/06/18 18:11 Respiratory Effort Non-Labored 12/06/18 18:14 Blood Pressure 128/70 12/06/18 18:11 Blood Pressure Position Sitting 12/06/18 18:11 Pulse Oximetry 99 12/06/18 18:11 Oxygen Delivery Method Room Air 12/06/18 18:11 Oxygen Flow Rate 0 12/06/18 18:11 Pain Level 10 12/06/18 18:20
[2018-12-06 18:28] VITALS: BP 128/70; PULSE 82; RESP 16; TEMP 36.7; O2SAT 99
== END 2018-12-06 18:30 | disposition home or self-care (01) ==
PROVIDERS: Emergency Provider Emergency Medicine; PCP Specialist/Technologist Athletic Trainer
DX: M25.572 Pain in left ankle and joints of left foot (principal); E11.9 Type 2 diabetes mellitus without complications
CPT/HCPCS: 99283

== ENCOUNTER 2018-12-12 18:11 | Outpatient (REF) | payer OTHER, SELFPAY ==
[2018-12-12 21:20] LABS: Uric Acid 4.8 mg/dL (2.6-6.0)
== END 2018-12-12 18:31 ==
LOC: NCHCN 18:11
PROVIDERS: PCP Specialist/Technologist Athletic Trainer; Visit Provider Nurse Practitioner Family
DX: E79.0 Hyperuricemia without signs of inflammatory arthritis and tophaceous disease (principal)
CPT/HCPCS: 84550

== ENCOUNTER 2019-01-03 08:57 | Outpatient (REF) | payer OTHER, SELFPAY ==
--- NOTE | 2019-01-03 08:45 | PAPFT_PTH ---
PATIENT: Polina Montero LOC: [facility]#:[id number] AGE/SX: 58/F ROOM: RE01/03/[address]: Margoth Sommer : 1960 BED: DIS: 01/03/2019 SPEC #: [id number] RECD: 01/04/19 12:45 STATUS: KELTON REAryan #: [id number] MATT: 01/03/19 08:[address]: Margoth Sommer DEPT: [facility] Cytology RECD BY: Debbi Suazo ENTERED: 01/04/19 12:45 SP TYPE: PAPFT OTHR DR: Kyle Bustos Tissues: 1 - CX/ENDOCX FOR PAP SMEARS Procedures: PAP THIN PREP/UVM Screening HPV DNA PROBE Comments: [id number]
== END 2019-01-03 09:17 ==
LOC: NCHCN 08:57
PROVIDERS: PCP Specialist/Technologist Athletic Trainer; Visit Provider Nurse Practitioner Family
DX: Z12.4 Encounter for screening for malignant neoplasm of cervix (principal); Z01.419 Encounter for gynecological examination (general) (routine) without abnormal findings; Z11.51 Encounter for screening for human papillomavirus (HPV)
CPT/HCPCS: 88142; 87624

== ENCOUNTER 2019-04-20 01:45 | Outpatient (CLI) | payer OTHER, SELFPAY ==
--- NOTE | 2019-04-20 | DI.US_ITS ---
EXAM: US RENAL CLINICAL HISTORY: POLYCYSTIC KIDNEY DISEASE,Q61.3, ANNUAL IMAGING TO ASSESS KIDNEY SIZE TECHNIQUE: Ultrasound performed using standard protocol. COMPARISON: ABDOMEN ULTRASOUND (P) from 08/25/2017 FINDINGS: Innumerable bilateral renal cysts are again noted. No suspicious masses were identified. The overa ll measurements of the kidneys are difficult to obtain due to large size, extending beyond the field of the view of the transducer. The right kidney measures approximately 17.9 x 9.1 x 7.9 cm. The lef t kidney measures approximately 18 x 10 x 9 cm. No hydronephrosis or perinephric collections are see n. The prevoid bladder volume measured 78 cc. There is a postvoid residual of 3 cc. The right uret eral jet was visualized. The left ureteral jet was not visualized. IMPRESSION: Polycystic kidneys. DATA REPOSITORY:
== END 2019-04-20 02:05 ==
PROVIDERS: PCP Nurse Practitioner Family; Visit Provider Internal Medicine Nephrology
DX: N28.1 Cyst of kidney, acquired (principal); Q61.3 Polycystic kidney, unspecified
CPT/HCPCS: 76770

== ENCOUNTER 2019-04-21 00:12 | Outpatient (CLI) | payer OTHER, SELFPAY ==
[2019-04-21 07:43] LABS: Absolute Basophil Count 0.06 k/cumm (0.0-0.2); Absolute Eosinophil Count 0.29 k/cumm (0.0-0.7); Absolute Lymphocyte Count 2.78 k/cumm (1.2-3.4); Absolute Monocyte Count 0.34 k/cumm (0.11-0.7); Absolute Neutrophil Count 1.96 k/cumm (1.2-6.7); Basophils % 1.1; Eosinophils % 5.3; HCT 40.5 % (36.0-46.0); Lymphocytes % 51.2; Mean Corp. HGB Concentration 32.1 g/dL (32.0-36.0); Mean Corpuscular Hemoglobin 27.3 pg (27.0-33.0); Mean Corpuscular Volume 84.9 fL (80-95); Mean Platelet Volume 8.6 fL (8.0-11.0); Monocytes % 6.3; Neutrophils % 36.1; Platelet Count 269 x1000/uL (130-400); RBC 4.77 m/cumm (4.00-5.20); RBC Distribution Width 13.4 % (11.7-14.6); White Blood Cell Count 5.43 k/cumm (4.4-10.8)
[2019-04-21 08:45] LABS: Albumin 3.8 g/dL (3.4-5.0); Anion Gap 9.3 mmol/L (3-11); BUN 11 mg/dL (7-18); CO2 29.7 mmol/L (21.0-32.0); CREATININE 0.72 mg/dL (0.55-1.02); Chloride 102 mmol/L (98-107); Glucose 183 mg/dL (74-106); PHOSPHORUS 4.2 mg/dL (2.6-4.7); Potassium 4.4 mmol/L (3.5-5.1); Sodium 141 mmol/L (136-145); Uric Acid 4.4 mg/dL (2.6-6.0)
[2019-04-21 08:56] LABS: Calculated LDL 124 mg/dL (<100); Cholesterol 210 mg/dL (<200); HDL Cholesterol 58 mg/dL (40-60); Triglyceride 141 mg/dL (<150)
== END 2019-04-21 00:32 ==
PROVIDERS: PCP Nurse Practitioner Family; Visit Provider Internal Medicine Nephrology
DX: Q61.3 Polycystic kidney, unspecified (principal); E79.0 Hyperuricemia without signs of inflammatory arthritis and tophaceous disease
CPT/HCPCS: 36415; 80048; 80061; 82040; 84100; 84550; 85025

== ENCOUNTER 2019-05-15 11:55 | Outpatient (REF) | payer OTHER, SELFPAY ==
[2019-05-15 12:16] LABS: Absolute Basophil Count 0.03 k/cumm (0.0-0.2); Absolute Eosinophil Count 0.16 k/cumm (0.0-0.7); Absolute Lymphocyte Count 2.81 k/cumm (1.2-3.4); Absolute Monocyte Count 0.31 k/cumm (0.11-0.7); Absolute Neutrophil Count 1.62 k/cumm (1.2-6.7); Basophils % 0.6; Eosinophils % 3.2; HCT 38.9 % (36.0-46.0); HGB 12.6 g/dL (12.0-15.5); Mean Corp. HGB Concentration 32.4 g/dL (32.0-36.0); Mean Corpuscular Hemoglobin 27.6 pg (27.0-33.0); Mean Corpuscular Volume 85.1 fL (80-95); Mean Platelet Volume 8.6 fL (8.0-11.0); Monocytes % 6.3; Neutrophils % 32.9; Platelet Count 264 x1000/uL (130-400); RBC 4.57 m/cumm (4.00-5.20); RBC Distribution Width 13.3 % (11.7-14.6); White Blood Cell Count 4.93 k/cumm (4.4-10.8)
[2019-05-15 12:43] LABS: ALT 22 U/L (14-59); AST 12 U/L (15-37); Alkaline Phosphatase 64 U/L (46-116); Anion Gap 8.8 mmol/L (3-11); BUN 12 mg/dL (7-18); Bilirubin, Total 0.4 mg/dL (0.2-1.0); CO2 29.2 mmol/L (21.0-32.0); CREATININE 0.89 mg/dL (0.55-1.02); Calcium 9.4 mg/dL (8.5-10.1); Chloride 98 mmol/L (98-107); Glucose 305 mg/dL (74-106); Magnesium 1.6 mg/dL (1.8-2.4); Potassium 4.9 mmol/L (3.5-5.1); Sodium 136 mmol/L (136-145); TSH 1.28 uIU/mL (0.36-3.74); Total Protein 7.5 g/dL (6.4-8.2)
[2019-05-15 12:51] LABS: Troponin I < 0.05 ng/Ml (<0.06)
[2019-05-15 13:14] LABS: ESR 37 mm/hr (0-30)
== END 2019-05-15 12:15 ==
LOC: NCHCN 11:55
PROVIDERS: PCP Nurse Practitioner Family; Visit Provider Nurse Practitioner Family
DX: R07.9 Chest pain, unspecified (principal)
CPT/HCPCS: 80053; 85652; 83735; 84443; 84484; 85025

== ENCOUNTER 2019-07-11 11:36 | Outpatient (REF) | payer OTHER, SELFPAY ==
[2019-07-11 20:08] LABS: ALT 24 U/L (14-59); AST 16 U/L (15-37); HDL Cholesterol 54 mg/dL (40-60); LDL CHOLESTEROL 73 mg/dL (<100)
[2019-07-11 20:23] LABS: Creatine Kinase 257 U/L (26-192)
== END 2019-07-11 11:56 ==
LOC: NCHCN 11:36
PROVIDERS: PCP Nurse Practitioner Family; Visit Provider Nurse Practitioner Family
DX: E78.5 Hyperlipidemia, unspecified (principal); E11.9 Type 2 diabetes mellitus without complications
CPT/HCPCS: 82550; 83721; 83718; 84450; 84460

== ENCOUNTER 2019-07-12 08:06 | Outpatient (CLI) | payer OTHER, SELFPAY ==
--- NOTE | 2019-07-12 08:58 | DI.RAD_ITS ---
EXAM: XR CERVICAL SPINE COMP 4-5V CLINICAL HISTORY: WORSENING NECK PAIN, M54.2,H/O DEGENERATIVE CHANGES, ? ANY CHANGE. TECHNIQUE: 2D digital imaging was performed. COMPARISON: No exams were available for comparison FINDINGS: BONES: No fracture or destructive lesion. There are endplate osteophytes projecting mainly anteriorl y. There [id number] facet degenerative changes, greatest at C6-7 and C7-T1. DISKS: There is mild disc space narrowing seen at C5-6 and moderate disc space narrowing at C6-7. Th ere is encroachment on the right neural foramen at C6-7 secondary to osteophytes. There may also be neural foraminal narrowing on the right at C 3 4. The remaining neural foramen are well maintained.. ALIGNMENT: There is some straightening of the normal cervical lordosis secondary to degenerative fish ges.. The odontoid and atlantoaxial articulations are normal. SOFT TISSUE: Normal. The lung apices are clear. IMPRESSION: Degenerative changes causing right neural foraminal narrowing at C6-7.. DATA REPOSITORY: RADIATION DOSE DELIVERED:
== END 2019-07-12 08:26 ==
PROVIDERS: PCP Nurse Practitioner Family; Visit Provider Nurse Practitioner Family
DX: M54.2 Cervicalgia (principal); M50.323 Other cervical disc degeneration at C6-C7 level
CPT/HCPCS: 72050

== ENCOUNTER 2019-07-24 02:18 | Outpatient (CLI) | payer OTHER, SELFPAY ==
--- NOTE | 2019-07-24 | DI.MRI_ITS ---
EXAM: MR CERVICAL SPINE WO CLINICAL HISTORY: NECK PAIN, M54.2 TECHNIQUE: Multiplanar multisequence MRI of the cervical spine was performed without intravenous con trast. COMPARISON: No exams were available for comparison FINDINGS: BONES: Vertebral body heights are maintained. Alignment is normal. Bone marrow signal intensity is w ithin normal limits. CERVICAL CORD: Craniovertebral junction is unremarkable. The cervical cord is normal size and signal intensity. SOFT TISSUES: Unremarkable. C2-3: There is no focal disc herniation, central spinal canal or neural foraminal stenosis. C3-4: No significant central spinal canal or right neural foraminal stenosis is present. There are m ild hypertrophic changes of the right uncovertebral joint causing mild right neural foraminal stenosi s. C4-5: There is no focal disc herniation, central spinal canal or neural foraminal stenosis. There is mild prominence of the osteophyte disc complex. C5-6: There is no focal disc herniation, central spinal canal or neural foraminal stenosis. C6-7: There is prominence of the osteophyte disc complex. This causes mild narrowing of the AP diame ter of the central spinal canal. Hypertrophic changes are seen in the right uncovertebral joint caus ing moderate narrowing of the right neural foramen. No left neural foraminal stenosis is present. C7-T1: There is no focal disc herniation, central spinal canal or neural foraminal stenosis. IMPRESSION: Multilevel degenerative changes in the cervical spine as described above. Mild right neural foramina l narrowing at C3-4 and C6-C7. DATA REPOSITORY:
== END 2019-07-24 02:38 ==
PROVIDERS: PCP Nurse Practitioner Family; Visit Provider Nurse Practitioner Family
DX: M54.2 Cervicalgia (principal); M47.892 Other spondylosis, cervical region; M48.02 Spinal stenosis, cervical region
CPT/HCPCS: 72141

== ENCOUNTER 2019-09-01 08:58 | Outpatient (CLI) | payer OTHER, SELFPAY ==
[2019-09-03 14:39] LABS: COVID-19 RT-PCR Result NEGATIVE (Negative)
== END 2019-09-01 09:18 ==
PROVIDERS: PCP Nurse Practitioner Family; Visit Provider Family Medicine
DX: J98.4 Other disorders of lung (principal)
CPT/HCPCS: U0003

== ENCOUNTER 2019-09-04 02:53 | Outpatient (CLI) | payer OTHER, SELFPAY ==
--- NOTE | 2019-09-13 11:30 | W.PFT ---
Date of service: 09/11/19 Time of Service: 03:02 Pulmonary Function Test Result Interpretation Spirometry: Spirometry shows no evidence of obstructive airways disease, no bronchodilator response Lung Volumes: Lung volumes show mild restriction Diffusion Capacity: Diffusion capacity is normal Airway Pressure: Airways resistance is borderline mildly elevated Impression Mild restrictive lung disease clinical correlation recommended. Differential diagnosis includes parenchymal restrictive disease versus chest wall restriction from either underlying obesity or respiratory neuromuscular weakness Clinical Correlation therefore is recommended.
== END 2019-09-04 03:13 ==
PROVIDERS: PCP Nurse Practitioner Family; Visit Provider Nurse Practitioner Family
DX: R69 Illness, unspecified (principal)

== ENCOUNTER 2019-09-12 01:16 | Outpatient (CLI) | payer OTHER, SELFPAY ==
--- NOTE | 2019-09-12 | DI.MAMMO_ITS ---
EXAM: MAMMO SCREENING CLINICAL HISTORY: SCREENING, PREVENTATIVE CARE,Z00.00 TECHNIQUE: Mammograms were interpreted according to the usual protocol including computer analysis w [employer] CAD system, tomosynthesis and C-view imaging. COMPARISON: 2011 through 2018 FINDINGS: The breasts are composed of heterogeneously dense fibroglandular densities, Breast Density category C . No suspicious masses or suspicious microcalcifications are seen. No skin thickening or abnormal axillary lymph nodes are seen. There has been no significant change from prior exams. IMPRESSION: BI-RADS Category 1: Negative mammogram. Yearly screening mammography is recommended. Breast Density Category C, heterogeneously dense tissue which decreases the sensitivity of the mammog fadi. The mammogram demonstrates the patient's breast tissue is dense. Dense breast tissue is very common a nd is not abnormal but dense breast tissue can make it harder to find cancer on a mammogram. Also, de nse breast tissue may increase breast cancer risk. This information about the result of the mammogram report was provided to the patient to raise their awareness. Use this report when you speak with the patient about their risks for breast cancer, which includes their family history. At that time, you may recommend additional screening tests (Ultrasound or MRI) as they might be useful based on their r isk. A negative radiographic report should not delay biopsy if a dominant or clinically suspicious mass is present. Up to ten percent of cancers are not identified on mammography. A negative report may reinforce clinical impression. Adenosis and dense breasts may obscure an underlying neoplasm. False positive reports average 6 to 10%.
== END 2019-09-12 01:36 ==
PROVIDERS: PCP Nurse Practitioner Family; Visit Provider Nurse Practitioner Family
DX: Z12.31 Encounter for screening mammogram for malignant neoplasm of breast (principal); R92.2 Inconclusive mammogram
CPT/HCPCS: 77063; 77067

== ENCOUNTER 2019-09-12 08:24 | Outpatient (CLI) | payer OTHER, SELFPAY ==
[2019-09-12 08:37] VITALS: BP 129/83; PULSE 70; RESP 20; TEMP 36.3; O2SAT 98
--- NOTE | 2019-09-12 08:57 | PDOC.PAIN_ITS ---
Pain Clinic Procedure Note Procedure Note Procedure Note: Bilateral Lumbar Radiofrequency with Coolief Machine PROCEDURE NOTE Date of Service: September 12, 2019 Patient: FEI CRUZ Provider: Humberto Maki MD Pre Operative Diagnosis: lumbar spondylosis Post Operative Diagnosis: same as above PROCEDURE: Radiofrequency Ablation of medial branches - bilateral L3, L4, L5-DR Comment: patient received sustained pain relief of her back pain lasting for 12 months. She returns for repeat bilateral lumbar RFA. FEI CRUZ was brought into the fluoroscopy suite and positioned into the prone position on the fluoroscopy table and allowed to adjust to a position of comfort. A grounding pad was placed on the [right/left] thigh. The lumbar region was widely prepped with a chloraprep solution, allowed to air dry and draped in standard sterile surgical fashion. Local anesthesia was provided by [] mL of [] % [] delivered with a 25g needle. A 17g 100mm radiofrequency introducer needle was placed to the planned anatomic targets guided with intermittent fluoroscopy with a perpendicular approach to terminally place at the junction of the superior articular process and the transverse process of the bilateral L3, L4, L5-DR and the base of the sacral ala on the bilateral for the L5 medial branch nerve. The stylets were removed and radiofrequency probes with a 4mm active tip were then inserted. Needle tip position of the probes was verified in the AP, oblique, and lateral views. At e ach site, the medial branch nerve was stimulated at 2 Hz to a maximum 1-2 volts determined to finalize safe needle and electrode placement. The patient was awake and responsive during this portion of the procedure. Each target was anesthetized with 1mL of 2% lidocaine for anesthesia for lesioning and then each target was lesioned at 80 degrees Celsius for 2 minutes and 30 seconds. Tissue impedences were noted to be between 250 and 500 Ohms. Electrodes and needles were then removed and bandages placed over the needle placement sites, the patient then returned to the supine position on a stretcher and transported to the recovery room without hemodynamic, neurologic, or allergic reactions. Fluoroscopic images were printed for hard copy recording and digitally archived. POST PROCEDURE EVALUATION: IMPRESSION: 1. Summary of procedure. patient tolerated procedure well 2. Received total of 1mg of IV versed and 50mcg of IV fentanyl 3. This will result in denervation of total of 4 facet joints, bilateral L4/5 and L5/S1 facets Follow up plans and appointments were discussed with the FEI . Post procedure instruction was given as documented in nursing documentation and having met discharge criteria, FEI was discharged from the [facility]. COMMENTS: No complications. F/U with our office as needed. I personally performed this entire procedure. Humberto Maki MD Attending Physician
[2019-09-12] MEDS: fentaNYL 100 MCG/2 ML VIAL IVP ×2 (09:21→09:37)
[2019-09-12] MEDS: Lactated Ringers 1,000 ML 80 ML IV (09:21)
[2019-09-12] MEDS: Midazolam 2 MG/2 ML VIAL IVP (09:22)
[2019-09-12] MEDS: Lidocaine 1% Pres-Free 30 ML VIAL IJ (09:53)
[2019-09-12 09:54] VITALS: BP 126/64; PULSE 60
[2019-09-12] MEDS: Bupivacaine 0.5% Pres-Free 10 ML VIAL IJ (09:54)
[2019-09-12] MEDS: Lidocaine 2% Pres-Free 5 ML VIAL IJ (09:54)
--- NOTE | 2019-09-12 09:57 | DI.RAD_ITS ---
EXAM: XR PAIN CLINIC LUMBAR SP 2V CLINICAL HISTORY: Lumbar Spondylosis. TECHNIQUE: Fluoroscopy was provided for the referring physician for guidance with performing injecti on procedure. COMPARISON: No exams were available for comparison FINDINGS: Please see procedure note for details. Fluoro time: 10.8 sec RADIATION DOSE DELIVERED:
[2019-09-12 10:00] VITALS: BP 127/72; PULSE 63; RESP 14; O2SAT 100
== END 2019-09-12 08:44 ==
PROVIDERS: PCP Nurse Practitioner Family; Visit Provider Internal Medicine
DX: M47.816 Spondylosis without myelopathy or radiculopathy, lumbar region (principal)
CPT/HCPCS: 64635; 64636; 72100; J2250; J3010

== ENCOUNTER 2019-12-05 09:44 | Outpatient (REF) | payer OTHER, SELFPAY ==
[2019-12-05 20:55] LABS: Anion Gap 8.6 mmol/L (3-11); BUN 14 mg/dL (7-18); CO2 25.4 mmol/L (21.0-32.0); CREATININE 0.85 mg/dL (0.55-1.02); Calcium 8.8 mg/dL (8.5-10.1); Chloride 105 mmol/L (98-107); Creatine Kinase 236 U/L (26-192); Glucose 178 mg/dL (74-106); Potassium 4.3 mmol/L (3.5-5.1); Sodium 139 mmol/L (136-145)
== END 2019-12-05 10:04 ==
LOC: NCHCN 09:44
PROVIDERS: PCP Nurse Practitioner Family; Visit Provider Nurse Practitioner Family
DX: E11.9 Type 2 diabetes mellitus without complications (principal); E78.5 Hyperlipidemia, unspecified
CPT/HCPCS: 80048; 82550

== ENCOUNTER 2020-02-19 18:43 | Outpatient (REF) | payer OTHER, SELFPAY ==
[2020-02-19 17:31] LABS: Creatine Kinase 205 U/L (26-192)
== END 2020-02-19 19:03 ==
LOC: NCHCN 18:43
PROVIDERS: PCP Nurse Practitioner Family; Visit Provider Nurse Practitioner Family
DX: R89.8 Other abnormal findings in specimens from other organs, systems and tissues (principal)
CPT/HCPCS: 82550

== ENCOUNTER 2020-03-04 17:47 | Outpatient (REF) | payer OTHER, SELFPAY ==
[2020-03-04 17:08] LABS: Hemoglobin A1C 7.2 % (<5.7)
== END 2020-03-04 18:07 ==
LOC: NCHCN 17:47
PROVIDERS: PCP Nurse Practitioner Family; Visit Provider Nurse Practitioner Family
DX: E11.9 Type 2 diabetes mellitus without complications (principal)
CPT/HCPCS: 83036

== ENCOUNTER 2020-04-09 11:30 | Outpatient (CLI) | payer OTHER, SELFPAY ==
--- NOTE | 2020-04-09 07:00 | DI.RAD_ITS ---
EXAM: XR PAIN CLINIC CERVICAL SP 2V CLINICAL HISTORY: DX: Cervical Radiculopathy. TECHNIQUE: Fluoroscopy was provided for the referring physician for guidance with performing injecti on procedure. COMPARISON: No exams were available for comparison FINDINGS: Please see procedure note for details. Fluoro time: 26.8 seconds RADIATION DOSE DELIVERED:
[2020-04-09 11:57] VITALS: BP 114/75; PULSE 79; RESP 20; TEMP 36.7; O2SAT 98
--- NOTE | 2020-04-09 12:47 | PDOC.PAIN ---
Pain Clinic Procedure Note Procedure Note Procedure Note: Date of service: April 09, 2020 Cervical Epidural Steroid Injection FEI CRUZ has been referred to the [facility] for cervical epidural steroid injection. COMMENTS:I reviewed her 07/24/2019 cervical spine MRI and her evaluation in our clinic from 03/11/2020. I IV medication today as she has not been NPO. DX: Cervical radiculopathy ANTHONY was interviewed and the medical record reviewed. There were no medical, pharmacologic, radiographic or other structural contraindications to attempting fluoroscopically guided epidural steroid injection. Risks and expected side effects as well as potential benefit of the procedure were reviewed with ANTHONY , and ANTHONY voiced concerns addressed. The printed consent form was signed and witnessed. Standard time-out procedure was performed. The patient was placed in the prone position on the fluoroscopy table and automated blood pressure cuff and pulse oximeter applied. The skin entry point for entering the epidural space by a midline C7-T1 interlaminar approach was identified under fluoroscopy and marked. Following thorough Chlorhexadine preparation of the skin and draping and 1% lidocaine infiltration of the skin entry point and subcutaneous tissues, an 18 gauge Tuohy needle was placed under fluoroscopic guidance and with loss of resistance technique into the C7-T1 epidural space. Upon needle placement and loss of resistance there were no paresthesiae or return of blood or CSF through the needle. 1 cc of Omnipaque 240 was injected with clear epidural spread in the A/P, lateral and oblique views. 10 mg of preservative free Dexomethasone was injected with no unusual discomfort expressed by ANTHONY. This was flushed with 1 cc of normal saline. ANTHONY 's vital signs were stable throughout the procedure and were as recorded in the docflowsheet by the nursing staff. Follow up plans and appointments were discussed with the ANTHONY. Post procedure instruction was given as documented in nursing documentation and having met discharge criteria, ANTHONY was discharged from the [facility]. COMMENTS: She did very well with this procedure. This procedure can be completed up to 3 times per 12 months if it is helpful. Elgin Tello DO, MPH Pain Management CC: Margoth Sommer
[2020-04-09 12:49] VITALS: BP 122/61; PULSE 84; RESP 21; O2SAT 97
[2020-04-09] MEDS: Dexamethasone Sod. Phos./Pres-Free 10 MG/ML VIAL IJ (12:51)
[2020-04-09] MEDS: Omnipaque 240 MG/ML 50 ML BTL IJ (12:51)
== END 2020-04-09 11:31 | disposition home or self-care (01) ==
LOC: PC 11:30
PROVIDERS: PCP Nurse Practitioner Family; Visit Provider Preventive Medicine Occupational Medicine
DX: M54.12 Radiculopathy, cervical region (principal)
CPT/HCPCS: 62321; 72040; Q9967

== ENCOUNTER 2020-06-27 09:58 | Outpatient (REF) | payer OTHER, SELFPAY ==
[2020-06-27 15:33] LABS: ALT 37 U/L (14-59); AST 15 U/L (15-37); Anion Gap 11.5 mmol/L (3-11); BUN 15 mg/dL (7-18); CO2 25.5 mmol/L (21.0-32.0); CREATININE 0.8 mg/dL (0.55-1.02); Calcium 8.8 mg/dL (8.5-10.1); Chloride 102 mmol/L (98-107); Glucose 221 mg/dL (74-106); HDL Cholesterol 52 mg/dL (40-60); LDL CHOLESTEROL 74 mg/dL (<100); Potassium 4.4 mmol/L (3.5-5.1); Sodium 139 mmol/L (136-145)
[2020-06-27 15:47] LABS: Creatine Kinase 172 U/L (26-192)
== END 2020-06-27 09:59 | disposition home or self-care (01) ==
LOC: NCHCN 09:58
PROVIDERS: PCP Nurse Practitioner Family; Visit Provider Nurse Practitioner Family
DX: E11.9 Type 2 diabetes mellitus without complications (principal); E78.5 Hyperlipidemia, unspecified; E03.9 Hypothyroidism, unspecified
CPT/HCPCS: 80048; 82550; 83721; 83718; 84450; 84460

== ENCOUNTER 2020-10-22 12:53 | Outpatient (CLI) | payer OTHER, SELFPAY ==
--- NOTE | 2020-10-22 06:00 | DI.RAD_ITS ---
Exam(s) XR PAIN CLINIC LUMBAR SP 2V EXAM: XR PAIN CLINIC LUMBAR SP 2V CLINICAL HISTORY: Dx: Lumbar Spondylosis. TECHNIQUE: Fluoroscopy was provided for the referring physician for guidance with performing injecti on procedure. COMPARISON: No exams were available for comparison FINDINGS: Please see procedure note for details. Fluoro time 71.3 seconds RADIATION DOSE DELIVERED: nelly Felton=16.23 mGy
[2020-10-22 13:08] VITALS: BP 129/69; PULSE 77; RESP 18; TEMP 36.5; O2SAT 100
--- NOTE | 2020-10-22 13:15 | PDOC.PAIN_ITS ---
Pain Clinic Procedure Note Procedure Note Procedure Note: Bilateral Lumbar Radiofrequency with Coolief Machine PROCEDURE NOTE Date of Service: October 22, 2020 Patient: FEI CRUZ Provider: Humberto Maki MD Pre Operative Diagnosis: lumbar spondylosis Post Operative Diagnosis: same as above PROCEDURE: Radiofrequency Ablation of medial branches - bilateral L3, L4, L5-DR Comment: Patient had her most recent RFA on 09/12/2019, and she reports 85% relief for the first 5 months and an additional 60-70% relief for about 2 months after that before gradual return of her back pain. FEI CRUZ was brought into the fluoroscopy suite and positioned into the prone position on the fluoroscopy table and allowed to adjust to a position of comfort. A grounding pad was placed on the [right/left] thigh. The lumbar region was widely prepped with a chloraprep solution, allowed to air dry and draped in standard sterile surgical fashion. Local anesthesia was provided by [] mL of [] % [] delivered with a 25g needle. A 17g 100mm radiofrequency introducer needle was placed to the planned anatomic targets guided with intermittent fluoroscopy with a perpendicular approach to terminally place at the junction of the superior articular process and the transverse process of the bilateral L3, L4, L5-DR and the base of the sacral ala on the bilateral for the L5 medial branch nerve. The stylets were removed and radiofrequency probes with a 4mm active tip were then inserted. Needle tip p osition of the probes was verified in the AP, oblique, and lateral views. At each site, the medial branch nerve was stimulated at 2 Hz to a maximum 1-2 volts determined to finalize safe needle and electrode placement. The patient was awake and responsive during this portion of the procedure. Each target was anesthetized with 1mL of 2% lidocaine for anesthesia for lesioning and then each target was lesioned at 80 degrees Celsius for 2 minutes and 30 seconds. Tissue impedences were noted to be between 250 and 500 Ohms. Electrodes and needles were then removed and bandages placed over the needle placement sites, the patient then returned to the supine position on a stretcher and transported to the recovery room without hemodynamic, neurologic, or allergic reactions. Fluoroscopic images were printed for hard copy recording and digitally archived. POST PROCEDURE EVALUATION: IMPRESSION: 1. Summary of procedure. patient tolerated procedure well 2. Received total of 1mg of IV versed and 50mcg of IV fentanyl 3. This will result in denervation of total of 4 facet joints, bilateral L4/5 and L5/S1 facets Follow up plans and appointments were discussed with the FEI . Post procedure instruction was given as documented in nursing documentation and having met discharge criteria, FEI was discharged from the [facility]. COMMENTS: No complications. F/U with our office as needed. I personally performed this entire procedure. Humberto Maki MD Attending Physician
[2020-10-22] MEDS: Lactated Ringers 1,000 ML 80 ML IV (13:36)
[2020-10-22] MEDS: fentaNYL 100 MCG/2 ML VIAL IVP ×2 (13:49→13:54)
[2020-10-22] MEDS: Midazolam 2 MG/2 ML VIAL IVP ×2 (13:49→13:58)
[2020-10-22] MEDS: Lidocaine 1% Pres-Free 5 ML VIAL IJ (14:23)
[2020-10-22] MEDS: Lidocaine 2% Pres-Free 5 ML VIAL IJ (14:23)
[2020-10-22] MEDS: Bupivacaine 0.5% Pres-Free 10 ML VIAL IJ (14:23)
[2020-10-22 14:24] VITALS: BP 122/64; PULSE 77; RESP 20; O2SAT 100
[2020-10-22] MEDS: methylPREDNISolone ACETATE 40 MG/ML VIAL IJ (14:24)
== END 2020-10-22 12:54 | disposition home or self-care (01) ==
LOC: PC 12:54
PROVIDERS: PCP Nurse Practitioner Family; Visit Provider Internal Medicine
DX: M47.816 Spondylosis without myelopathy or radiculopathy, lumbar region (principal)
CPT/HCPCS: 64635; 64636; 72100; J1030; J2250; J3010

== ENCOUNTER 2021-01-21 16:44 | Outpatient (REF) | payer OTHER, SELFPAY ==
[2021-01-21 15:44] LABS: Hemoglobin A1C 7.4 % (<5.7)
[2021-01-21 16:12] LABS: TSH 1.49 uIU/mL (0.36-3.74)
[2021-01-21 16:30] LABS: FREE T4 1.41 ng/dL (0.76-1.46)
== END 2021-01-21 16:45 | disposition home or self-care (01) ==
LOC: NCHCN 16:44
PROVIDERS: PCP Nurse Practitioner Family; Visit Provider Nurse Practitioner Family
DX: E03.9 Hypothyroidism, unspecified (principal); E11.9 Type 2 diabetes mellitus without complications
CPT/HCPCS: 83036; 84439; 84443

== ENCOUNTER 2021-02-04 01:42 | Outpatient (CLI) | payer OTHER, SELFPAY ==
[2021-02-04 10:26] LABS: Source Nasal/Nares
[2021-02-04 13:07] LABS: COVID-19 PCR Negative (Negative)
== END 2021-02-04 01:43 | disposition home or self-care (01) ==
LOC: LBO 01:42
PROVIDERS: PCP Nurse Practitioner Family; Visit Provider Student in an Organized Health Care Education/Training Program
DX: Z20.822 Contact with and (suspected) exposure to COVID-19 (principal); Z01.818 Encounter for other preprocedural examination
CPT/HCPCS: 87635

== ENCOUNTER 2021-02-05 05:52 | Day surgery (SDC) | payer OTHER, SELFPAY ==
[2021-02-05 06:21] VITALS: BP 128/76; PULSE 77; RESP 16; TEMP 36.2; O2SAT 99
[2021-02-05] MEDS: Lactated Ringers 1,000 ML 80 ML IV (07:00)
--- NOTE | 2021-02-05 07:01 | W.ANESPRE ---
General Info Date of Service Date Performed: 02/05/21 Height: 5 ft 1 in Weight: 71.5 kg Body Mass Index (BMI): 29.7 Surgical Procedure: Operation Date: 02/05/21 07:40 Proposed Procedures Side Surgeon p Wrist ECTR Right Otf Lopez MD Meds Allergies and Home Medications Allergies Allergy/AdvReac Type Severity Reaction Status Date / Time No Known Allergies Allergy Unverified 02/05/21 06:39 Home Medication Medication Instructions Recorded OneTouch Ultra Test #100 strip 08/20/14 simvastatin 40 mg PO DAILY #90 tab-cap 09/08/16 levothyroxine 88 mcg PO DAILY #90 tab-cap 01/21/17 fluticasone propionate 110 1 puff IH BID 03/24/18 mcg/actuation HFA aerosol inhaler fluticasone propionate 50 1 spray NS DAILY #1 gm 03/24/18 mcg/actuation nasal spray,suspension allopurinol 100 mg PO DAILY 12/06/18 albuterol sulfate [ProAir HFA] 2 puff INHALATION Q6H PRN 07/18/19 blood sugar diagnostic [ReliOn 07/18/19 Prime Test Strips] blood-glucose meter [ReliOn Prime 07/18/19 Meter] lancets [ReliOn Ultra Thin Plus 07/18/19 Lancets] metformin 1,000 mg PO BID 07/18/19 pen needle, diabetic [Pen Needle] 07/18/19 acetaminophen 650 mg 1,300 mg PO Q12H tab 07/24/19 tablet,extended release diclofenac sodium [Voltaren] 2 g TOPICAL TID PRN 03/01/20 lisinopril 2.5 mg PO BID 03/01/20 budesonide-formoterol HFA 80 2 puff INHALATION BID 03/11/20 mcg-4.5 mcg/actuation aerosol inhaler pantoprazole 40 mg PO DAILY 04/03/20 ascorbate calcium (vitamin C) 500 500 mg PO DAILY 06/17/20 mg tablet insulin detemir U-100 100 unit/mL 53 unit SUBCUT QHS ml 06/17/20 (3 mL) subcutaneous pen Current Visit Medications: Current Medications Generic Name Dose Route Start Last Admin Trade Name Freq PRN Reason Stop Dose Admin Ringer's Solution 1,000 mls @ 80 mls/hr 02/05/21 06:00 02/05/21 07:00 IV 03/06/21 23:59 80 mls/hr INFUSION ABIEL Administration Cefazolin Sodium/Dextrose 2 gm in 50 mls @ 100 mls/hr 02/05/21 06:00 Ancef Duplex IVPB 02/05/21 16:00 PREOP ABIEL IV Miscellaneous Supplies 1 each 02/05/21 06:00 Iv Access IV 03/06/21 23:59 DIRECTED ABIEL Sodium Chloride 0 ml 02/05/21 06:00 Normal Saline Flush 10 Ml Syr IV 03/06/21 23:59 PRN PRN Sodium Chloride 0 ml 02/05/21 06:00 Normal Saline 10 Ml Vial IJ 03/06/21 23:59 DIRECTED PRN Sterile Water 0 ml 02/05/21 06:00 Water,Injection,Sterile 10 Ml Vial IJ 03/06/21 23:59 DIRECTED PRN PFSH Active Problems Active Problems: Problem Status Onset Code Restrictive lung disease J98.4 Obstructive sleep apnea syndrome G47.33 Increased BMI R63.8 Hypothyroidism E03.9 Hyperlipidemia E78.5 Heart murmur R01.1 Headache R51 Diabetes mellitus E11.9 Asthma J45.909 Lumbosacral spondylosis without myelopathy M47.817 Bilateral carpal tunnel syndrome G56.03 Cubital tunnel syndrome on left G56.22 Medical History Medical History Achilles tendinitis, left leg Acid reflux Arm numbness Asthma Back pain DM (diabetes mellitus) Type II Heart murmur Pt. states this was a long time ago, and has never had an issue with it Hyperlipidemia Hypertension Hyperuricemia Hypothyroidism Neck pain Obstructive sleep apnea Onychomycosis Otalgia of left ear Polycystic kidney disease Preventative health care Restrictive lung disease Uterine leiomyoma Surgical History Surgical History Colonoscopy - [facility] (09/30/15) Dr Barillas, repeat 10 years S/P cholecystectomy Tobacco Smoking/Tobacco Use Status: Never Alcohol Alcohol Intake: never Substance Use Substance use: Never Substance use type: does not use Vital Signs and Lab Results Vital Signs Most Recent Vital Signs in EMR: Most Recent Vital Signs Temp Pulse Resp BP Pulse Ox 36.2 C L 77 16 128/76 99 02/05/21 06:21 02/05/21 06:21 02/05/21 06:21 02/05/21 06:21 02/05/21 06:21 Point of Care Results Point of Care Results: Finger Stick Blood Glucose 128 02/05/21 06:30 Lab Results Blood Type / Crossmatch: No Data to Display Complete Blood Count: No Data to Display Complete Metabolic Panel: Hemoglobin A1c 7.4 % (<5.7) H 01/21/21 10:45 01/21/21 Liver Function Panel: No Data to Display Coagulation Panel: No Data to Display Cardiac Panel: No Data to Display Arterial Blood Gas: No Data to Display Venous Blood Gas: No Data to Display Pancreas Panel: No Data to Display Thyroid Panel: Thyroid Stimulating Hormone (TSH) 1.49 uIU/mL (0.36-3.74) 01/21/21 10:45 01/21/21 Infectious Disease: Coronavirus (COVID-19)(PCR) Negative (Negative) 02/04/21 09:07 02/04/21 Coronavirus 2019 Source Nasal/Nares 02/04/21 09:07 02/04/21 Blood Cultures: No Data to Display Toxicology Panel: No Data to Display Anesthesia Assessment and Plan Anesthesia History Personal History: No History of Anesthesia Complications Family History: No Family History of Anesthesia Complications Exercise Tolerance Exercise Tolerance: Metabolic Equivalents>4 Pertinent Negatives Pertinent Negatives: No Symptoms of GERD, No Major Cardiovascular Symptoms or Complaints, No Major Pulmonary Symptoms or Complaints (Asthma well controlled ) and No History of CVA/TIA Cardiac & Pulmonary Exam Cardiac Exam: Normal S1/S2 Heart Sounds Pulmonary Exam: Clear Bilateral Breath Sounds Implantable Cardiac Device Does patient have a Pacemaker or an ICD?: No Airway Exam Known Difficult Airway: No Mallampati Class: 1 Mouth Opening: Normal (> 3cm) Thyromental Distance: Greater than 3 cm Neck Range of Motion: Full ROM Neck Circumference: Normal Teeth Condition: Normal Dentition ASA Classification ASA Score: ASA 2 Emergency Case?: No NPO Status NPO Status: NPO Clears >2 hours, Solids >8 hours Anesthesia Plan Resuscitation Status: Full Code Anesthesia Technique: General Anesthesia Airway Planned: Natural Airway Monitors Used: Standard Monitors
[2021-02-05 07:05] VITALS: BMI 29.7
--- NOTE | 2021-02-05 07:17 | W.PM.DSUDISC ---
Discharge Plan Disposition Patient Disposition: HOME Condition: Good Discharge Details Reason For Visit: Right carpal tunnel syndrome Attending Provider: Otf Lopez Primary Care Provider: Margoth Sommer Home Meds and New Rx's Prescriptions: New hydrocodone-acetaminophen 5-325 mg tablet 1 tab PO Q6H PRN (Reason: severe pain) Qty: 4 RF: 0 acetaminophen 500 mg tablet 500 mg PO Q6H PRN (Reason: pain) Qty: 60 RF: 2 ibuprofen 600 mg tablet 600 mg PO TID PRN (Reason: pain) Qty: 60 RF: 0 Continued (DME) blood-glucose meter [ReliOn Prime Meter] Misc MISCELLANEOUS RF: 0 (DME) ReliOn Prime Test Strips Strip MISCELLANEOUS RF: 0 (DME) lancets [ReliOn Ultra Thin Plus Lancets] Misc MISCELLANEOUS RF: 0 albuterol sulfate [ProAir HFA] 90 mcg/actuation Hfa Aerosol Inhaler 2 puff INHALATION Q6H PRNRF: 0 metformin 500 mg Tablet Extended Release 24 Hr 1,000 mg PO BID RF: 0 (DME) pen needle, diabetic [Pen Needle] 31 gauge x 3/16 Needle MISCELLANEOUS RF: 0 diclofenac sodium [Voltaren] 1 % Gel 2 g TOPICAL TID PRNRF: 0 lisinopril 2.5 MG tablet 2.5 mg PO BID RF: 0 budesonide-formoterol [Symbicort] 80-4.5 mcg/actuation HFA aerosol inhaler 2 puff inhalation BID RF: 0 Levemir FlexTouch U-100 Insuln 100 unit/mL (3 mL) insulin pen 53 unit subcut QHS RF: 0 ascorbate calcium (vitamin C) 500 mg tablet 500 mg PO DAILY RF: 0 Flovent HFA 110 mcg/actuation HFA aerosol inhaler 1 puff IH BID RF: 0 AEROCHAMBER 1 EACH spacer 1 ea Miscellaneous PRN Qty: 1 RF: 0 (DME) OneTouch Ultra Test 1 EACH strip 1 strip Miscellaneous DAILY Qty: 100 RF: 4 simvastatin 40 MG tablet 40 mg PO DAILY Qty: 90 RF: 3 levothyroxine 88 MCG tablet 88 mcg PO DAILY Qty: 90 RF: 3 fluticasone propionate [Flonase Allergy Relief] 50 mcg/actuation spray,suspension 1 spray NS DAILY Qty: 1 RF: 3 allopurinol 100 mg Tablet 100 mg PO DAILY RF: 0 pantoprazole 40 mg Tablet,Delayed Release (Dr/Ec) 40 mg PO DAILY RF: 0 Discontinued acetaminophen [Tylenol 8 Hour] 650 mg tablet extended release 1,300 mg PO Q12H RF: 0 Discharge Instructions Stand Alone Forms: Kylea Sunday Tunnel Release Referrals: Otf Lopez MD [ [facility] ST[facility]FF [facility]YSICIAN] - Activity:: Activity as Tolerated Remove Dressings/Wound Care:: 72 hours Shower/Bathe:: 72 hours Diet:: As Tolerated Discharge Orders Discharge Orders: Discharge Order (Routine); Ordered 02/05/21 Ordered By: Isa Paredes DS: Diagnosis Discharge Diagnosis (1) Right carpal tunnel syndrome: Status: Acute
--- NOTE | 2021-02-05 07:18 | W.PREOPHP ---
Assessment and Plan Assessment and plan (1) Left carpal tunnel syndrome: Status: Acute (2) Right carpal tunnel syndrome: Status: Acute Assessment and plan: Verónica is a 60-year-old has bilateral carpal tunnel syndrome, worse on the right. She is here today for right carpal tunnel release to be followed by left carpal tunnel release in 1 week. I discussed the technical details of carpal tunnel release and that I perform an endoscopic release, but would make a larger, open, incision if necessary for visualization. I discussed the risks of the procedure to include, but not limited to, bleeding, infection, palmar pain, stiffness, damage to nerves, damage to vessels, damage to tendons, weakness, recurrence, and incomplete release. Given these risks, Verónica desires to proceed. History of Present Illness History of Present Illness Chief Complaint: Bilateral carpal tunnel syndrome Narrative: Verónica is a 60-year-old who I saw previously in the office for bilateral carpal tunnel syndrome, right worse than left. She has been dealing with the symptoms for quite some time with persistent numbness and tingling about both hands, worse on the right. Please see the office note for complete details of her clinical history. She is here today for right-sided carpal tunnel release to follow with a left-sided carpal tunnel release in 1 week. Review of Systems All systems reviewed & are unremarkable except as noted in HPI and below PFSH All Active Problems Left carpal tunnel syndrome (Acute) Right carpal tunnel syndrome (Acute) Restrictive lung disease (Acute) Obstructive sleep apnea syndrome (Acute) uses C-PAP Increased BMI (Acute) Hypothyroidism (Acute) Hyperlipidemia (Acute) Heart murmur (Acute) Headache (Acute) Diabetes mellitus (Acute) Asthma (Acute) Lumbosacral spondylosis without myelopathy (Acute) Cubital tunnel syndrome on left (Acute) Medical History Achilles tendinitis, left leg Acid reflux Arm numbness Asthma Back pain DM (diabetes mellitus) Type II Heart murmur Pt. states this was a long time ago, and has never had an issue with it Hyperlipidemia Hypertension Hyperuricemia Hypothyroidism Neck pain Obstructive sleep apnea Onychomycosis Otalgia of left ear Polycystic kidney disease Preventative health care Restrictive lung disease Uterine leiomyoma Surgical History Colonoscopy - [facility] (09/30/15) Dr Barillas, repeat 10 years S/P cholecystectomy Family History Mother Essential hypertension Hyperlipidemia Father Heart disease Hyperlipidemia Stroke Brother Essential hypertension Stroke Grandfather Essential hypertension Stroke Grandfather Essential hypertension Stroke Grandmother Essential hypertension Stroke Grandmother Stroke Brother Stroke Son No problems noted. Daughter No problems noted. Daughter No problems noted. Social History Smoking/Tobacco Use Status: Never Smoking risk assessment performed?: Yes Alcohol Intake: never Drug use: Never Substance use type: does not use Household members: spouse Housing: house Number of Children: 3 What type of physical activity do you participate in: none Do you feel safe at home: Yes Do you feel safe in your relationship?: Yes Meds Allergies and Home Medications Allergies Allergy/AdvReac Type Severity Reaction Status Date / Time No Known Allergies Allergy Unverified 02/05/21 06:39 Home Medications Medication Instructions Recorded Confirmed Type Aerochamber 1 ea MISCELLANEOUS PRN #1 aer 05/24/13 02/05/21 Clinic OneTouch Ultra Test #100 strip 08/20/14 02/05/21 History simvastatin 40 mg PO DAILY #90 tab-cap 09/08/16 02/05/21 History levothyroxine 88 mcg PO DAILY #90 tab-cap 01/21/17 02/05/21 Rx fluticasone propionate 110 1 puff IH BID 03/24/18 02/05/21 History mcg/actuation HFA aerosol inhaler fluticasone propionate 50 1 spray NS DAILY #1 gm 03/24/18 02/05/21 History mcg/actuation nasal spray,suspension allopurinol 100 mg PO DAILY 12/06/18 02/05/21 History albuterol sulfate [ProAir HFA] 2 puff INHALATION Q6H PRN 07/18/19 02/05/21 History blood sugar diagnostic [ReliOn 07/18/19 02/05/21 History Prime Test Strips] blood-glucose meter [ReliOn Prime 07/18/19 02/05/21 History Meter] lancets [ReliOn Ultra Thin Plus 07/18/19 02/05/21 History Lancets] metformin 1,000 mg PO BID 07/18/19 02/05/21 History pen needle, diabetic [Pen Needle] 07/18/19 02/05/21 History diclofenac sodium [Voltaren] 2 g TOPICAL TID PRN 03/01/20 02/05/21 History lisinopril 2.5 mg PO BID 03/01/20 02/05/21 History budesonide-formoterol HFA 80 2 puff INHALATION BID 03/11/20 02/05/21 History mcg-4.5 mcg/actuation aerosol inhaler pantoprazole 40 mg PO DAILY 04/03/20 02/05/21 History ascorbate calcium (vitamin C) 500 500 mg PO DAILY 06/17/20 02/05/21 History mg tablet insulin detemir U-100 100 unit/mL 53 unit SUBCUT QHS ml 06/17/20 02/05/21 History (3 mL) subcutaneous pen acetaminophen 500 mg PO Q6H PRN #60 tab 02/05/21 Rx hydrocodone-acetaminophen 1 tab PO Q6H PRN #4 tab 02/05/21 Rx ibuprofen 600 mg PO TID PRN #60 tab 02/05/21 Rx Exam Resp Auscultation: clear to auscultation bilaterally Cardio Rate: regular rate Rhythm: regular rhythm Results Last Vital Signs Temp 36.2 C L 02/05/21 06:21 Pulse 77 02/05/21 06:21 Resp 16 02/05/21 06:21 BP 128/76 02/05/21 06:21 Pulse Ox 99 02/05/21 06:21
[2021-02-05] MEDS: ceFAZolin 2 GM/50 ML BAG IVPB (07:29)
[2021-02-05] MEDS: Sodium Bicarbonate 50 MEQ/50 ML VIAL (07:51)
[2021-02-05 08:00] VITALS: BP 119/59; PULSE 76; RESP 18; TEMP 36.1; O2SAT 100
--- NOTE | 2021-02-05 08:02 | W.ANESPOSTOP ---
Postoperative Evaluation Date, Time and Location Date Performed: 02/05/21 Time Performed: 08:02 Patient Location: Day Surgery Unit Vital Signs Most Recent Imported Vital Signs: Most Recent Vital Signs Temp Pulse Resp BP Pulse Ox 36.2 C L 77 16 128/76 99 02/05/21 06:21 02/05/21 06:21 02/05/21 06:21 02/05/21 06:21 02/05/21 06:21 Pain Score Most Recent Pain Score: Most Recent Pain Score Pain Level 0 02/05/21 06:21 Assessment Mental Status: Awake (Alert & Oriented to Patient Baseline) Airway and Respiratory Function: Patent airway with normal (patient baseline) respiratory exam Cardiovascular Function: Hemodynamically Stable Hydration Status: Adequately Hydrated Nausea & Vomiting: No Nausea or Vomiting Pain: Pt. Denies Any Pain Peripheral Nerve Block: Patient did not receive a nerve block
[2021-02-05 08:35] VITALS: BP 135/77; PULSE 76; RESP 16; TEMP 36.3; O2SAT 99
--- NOTE | 2021-02-05 19:20 | ROE_ITS ---
Date of service: 02/05/21 Time of Service: 07:40 Operative Note Operative Note PRE-OP DIAGNOSIS: Left Carpal Tunnel Syndrome POST-OP DIAGNOSIS: same PROCEDURE: Left Endoscopic Carpal Tunnel Release SURGEON: Otf Lopez ANESTHESIA TYPE: General:No Airway Refer to Anesthesia Record ESTIMATED BLOOD LOSS: 0 PATHOLOGY: none sent TOURNIQUET TIME: 5 COMPLICATIONS: None Patient was transported to: same day Patient's condition: stable Indications: I have seen Verónica in clinic for symptoms of carpal tunnel syndrome, on both sides. The numbness, tingling, and pain limited function. Clinical exam findings with nerve conduction tests confirmed the diagnosis of carpal tunnel syndrome. Nonoperative measures such as bracing, time, activity modif ications had been tried but disability and pain persisted. I discussed carpal tunnel release with the patient. I reviewed the risks of the procedure to include, but not limited to, bleeding, infection, pain, stiffness, incomplete release, damage to nerves or vessels, persistent numbness, recurrence. Despite these risks, the patient elected to proceed. Findings: There was tightened carpal tunnel. This was dilated and released successfully with the endoscopic with increased space within the tunnel. The antebrachial fascia was released proximally freeing the median nerve at the wrist. Procedure Description: Verónica was greeted in the preoperative holding area where the correct side was identified and marked. The consent was reviewed with the patient and signed. The history and physical was updated. All questions were answered. She was taken back to the operating room. The patient was placed into the supine position on the operating room table with the left arm on an arm board. A nonsterile tourniquet was placed high onto the arm. All bony prominences were well padded. Prophylactic antibiotics in the form of Cefazolin were administered. The left arm was then prepped with Chloraprep and draped in a standard fashion with stockinette and extremity drape. A timeout to confirm co rrect identity, side and site, procedure, allergies, anesthesia, and medical concerns was performed. The surgical site was marked in the volar wrist creases in line with the radial border of the fourth ray. This area was anesthetized with approximately 6cc of 1% Lidocaine. The limb was then exsanguinated with an Esmarch. The skin was incised with a 15 blade, approximately 1cm. The skin only was cut and the deeper tissue was dissected bluntly with a tenotomy scissor, avoiding passing nerve and venous structures. The fascia was penetrated and opened bluntly. A two-prong skin hook was placed under this proximal fascial edge. A series of hamate finders were used to identify and dilate the carpal tunnel. Synovial elevator was used to free synovial attachments to the underside of the tr ansverse carpal ligament. My thumb was kept in the palm to mike the distal extent of the carpal tunnel and correctly position the hand. The Microaire endoscope was inserted without difficulty and without resistance. Excellent visualization showed horizontally running fibers of the transverse carpal ligament (TCL). The distal extent of the TCL was visualized and the end of the scope palpated with the thumb. The blade was elevated and withdrawn from distal to proximal. The TCL was split into two flaps. The endoscope was reinserted to confirm complete release and any remnant ligament was incised. The scope was withdrawn and the proximal aspect of the carpal tunnel was grossly inspected and appeared release with the median nerve visible. The antebrachial fascia at the level of the wrist was then freed from the overlying skin and then the underlying median nerve with blunt dissection. This was transected longitudinally for about 3cm proximal to the wrist incision. The wound was then irrigated with easy flow of irrigant distally and proximally. The incision was closed with a single 4-0 Nylon suture. The wound was dressed with Xeroform, Gauze, Kerlix and Zak. The tourniquet was deflated with the initial dressing and held with some pressure. Blood flow returned easily to all digits with capillary refill less than 2 seconds. The patient tolerated the procedure well and was returned to the Same Day Surgery area in a stable condition suffering no known complication.
== END 2021-02-05 08:55 | disposition home or self-care (01) ==
PROVIDERS: PCP Nurse Practitioner Family; Visit Provider Student in an Organized Health Care Education/Training Program
PROC: 01N54ZZ Release Median Nerve, Percutaneous Endoscopic Approach (ICD-10-PCS; CPT 29848; principal; 2021-02-05 07:30)
DX: G56.02 Carpal tunnel syndrome, left upper limb (principal); E11.9 Type 2 diabetes mellitus without complications; G47.33 Obstructive sleep apnea (adult) (pediatric); E78.5 Hyperlipidemia, unspecified; J45.909 Unspecified asthma, uncomplicated
CPT/HCPCS: 29848; J0690; J1885

== ENCOUNTER 2021-02-07 13:08 | Emergency (ER) | payer OTHER, SELFPAY ==
[2021-02-07 13:14] VITALS: BP 136/80; PULSE 75; RESP 18; TEMP 36.5; O2SAT 100
--- NOTE | 2021-02-07 13:34 | ED.GENADUL_ITS ---
Discharge Plan Disposition Patient Disposition: HOME Condition: Improving Discharge Details Clinical Impression: Abdominal pain Primary Care Provider: Margoth Sommer ED Provider: Meche Ochoa Home Meds and New Rx's Prescriptions: Continued (DME) blood-glucose meter [ReliOn Prime Meter] Misc MISCELLANEOUS RF: 0 (DME) ReliOn Prime Test Strips Strip MISCELLANEOUS RF: 0 (DME) lancets [ReliOn Ultra Thin Plus Lancets] Misc MISCELLANEOUS RF: 0 albuterol sulfate [ProAir HFA] 90 mcg/actuation Hfa Aerosol Inhaler 2 puff INHALATION Q6H PRNRF: 0 metformin 500 mg Tablet Extended Release 24 Hr 1,000 mg PO BID RF: 0 (DME) pen needle, diabetic [Pen Needle] 31 gauge x 3/16 Needle MISCELLANEOUS RF: 0 diclofenac sodium [Voltaren] 1 % Gel 2 g TOPICAL TID PRNRF: 0 lisinopril 2.5 MG tablet 2.5 mg PO BID RF: 0 budesonide-formoterol [Symbicort] 80-4.5 mcg/actuation HFA aerosol inhaler 2 puff inhalation BID RF: 0 Levemir FlexTouch U-100 Insuln 100 unit/mL (3 mL) insulin pen 53 unit subcut QHS RF: 0 ascorbate calcium (vitamin C) 500 mg tablet 500 mg PO DAILY RF: 0 Flovent HFA 110 mcg/actuation HFA aerosol inhaler 1 puff IH BID RF: 0 AEROCHAMBER 1 EACH spacer 1 ea Miscellaneous PRN Qty: 1 RF: 0 (DME) OneTouch Ultra Test 1 EACH strip 1 strip Miscellaneous DAILY Qty: 100 RF: 4 simvastatin 40 MG tablet 40 mg PO DAILY Qty: 90 RF: 3 levothyroxine 88 MCG tablet 88 mcg PO DAILY Qty: 90 RF: 3 fluticasone propionate [Flonase Allergy Relief] 50 mcg/actuation spray,suspension 1 spray NS DAILY Qty: 1 RF: 3 allopurinol 100 mg Tablet 100 mg PO DAILY RF: 0 pantoprazole 40 mg Tablet,Delayed Release (Dr/Ec) 40 mg PO DAILY RF: 0 hydrocodone-acetaminophen 5-325 mg tablet 1 tab PO Q6H PRN (Reason: severe pain) Qty: 4 RF: 0 acetaminophen 500 mg tablet 500 mg PO Q6H PRN (Reason: pain) Qty: 60 RF: 2 ibuprofen 600 mg tablet 600 mg PO TID PRN (Reason: pain) Qty: 60 RF: 0 Discharge Instructions Instructions: Abdominal Pain (ED) Additional Instructions: Your labs are reassuring here today. As your symptoms improved with Mylanta, and seem to be exacerbated by ibuprofen, I am concerned that this is likely acid reflux. Please stop the ibuprofen and transition to Tylenol for your discomfort instead. Please encourage hydration. Please continue with your omeprazole. Use daily as prescribed. You may use Mylanta which is available [id number] to help with symptomatic management. If you develop fever/chills, increased pain or other new/worsening symptoms please seek care urgently once again. Otherwise follow-up with your primary care in the next 1 to 2 weeks for reevaluation. Referrals: Margoth Sommer [Primary Care Provider] - Discharge Data Discharge Date/Time-TO BE ENTERED AT DEPARTURE: 02/07/21 16:31 Medical Decision Making Patient is a pleasant 60-year-old female presenting today with chief complaint of abdominal pain. She reports the pain began yesterday. Indicates the epigastric and umbilical region is area of discomfort. States that the pain is a 9 out of 10. Denies any nausea or vomiting. Has been using juan peggy with minimal relief of her discomfort. 3 days ago patient had a right-sided carpal tunnel release. Has been using ibuprofen since then. She is physically not supposed to be using ibuprofen secondary to kidney disease. She denies any change in her appetite. No fevers or chills. Has not linked with any any foods. Patient is status post cholecystectomy. Denies any change in bowel habits. Had a normal bowel movement this morning. She denies any alcohol use. Has not been using any narcotics for the pain. Reports no pain radiating into her back, states that she does have chronic back pain for which she sees pain management but no change in this. On exam, patient appears nontoxic. Vital signs are stable. Lungs are clear, normal cardiac exam. Abdomen is benign and nontender with palpation. Her history and exam is most consistent with exacerbation of acid reflux. She states that she is typically on omeprazole and did take 1 dose of this which did not help. I am questioning if this is associated with her ibuprofen which she states she has taken on empty stomach. Will give Mylanta as well as Protonix to help with discomfort. Patient is on a multitude of medications, I will obtain baseline lab. We will also screen for potential pancreatitis Without the nausea vomiting radiation of pain less likely. Labs reviewed. No leukocytosis. Stable H&H.CMP without significant abnormality. Urine within normal limits. Lipase within normal limits. Reevaluated the patient. She reports that she is feeling significantly improved and requesting discharge. Mylanta and Protonix seem to have done quite well for her. I advised that she should continue with daily omeprazole. Advised that she may use Mylanta as needed and then it is available [id number]. Encourage hydration. I encouraged her to stop using the ibuprofen and to transition to Tylenol as this may be the source of her discomfort. Return precautions were discussed. Encourage that she follow-up with her primary care in the next 1 to 2 weeks for reevaluation. All of her questions and concerns were addressed and she is agreement this plan. HPI General Mode of arrival: ambulatory . Date/Time Provider Initiated Documentation: 02/07/21 13:34 . Limitations to Documentation: no limitations . Information obtained by: patient, RN notes reviewed and old records reviewed . History of Present Illness 60 year old F presents to the emergency department with the chief complaint of epigastric abdominal pain, described as severe, with intensity rated at 9. Quality is described as aching, and is localized to the abdomen. Patient reports no radiation. Patient started experiencing this day(s) (2) and it has been constant. Eating improves symptom(s), (juan) Other factors that worsen symptoms (ibuprofen) . Patient notes no other symptoms.; denies chest pain, cough, diaphoresis, fever/chills, loss of appetite, nausea/vomiting, rash and shortness of breath. Patient did receive the following treatments prior to arrival, other (juan peggy) Related Data Home Medications Medication Instructions Recorded Confirmed Starriseruch Ultra Test #100 strip 08/20/14 02/05/21 simvastatin 40 mg PO DAILY #90 tab-cap 09/08/16 02/05/21 levothyroxine 88 mcg PO DAILY #90 tab-cap 01/21/17 02/05/21 fluticasone propionate 110 1 puff IH BID 03/24/18 02/05/21 mcg/actuation HFA aerosol inhaler fluticasone propionate 50 1 spray NS DAILY #1 gm 03/24/18 02/05/21 mcg/actuation nasal spray,suspension allopurinol 100 mg PO DAILY 12/06/18 02/05/21 ReliOn Prime Test Strips 07/18/19 02/05/21 albuterol sulfate [ProAir HFA] 2 puff INHALATION Q6H PRN 07/18/19 02/05/21 blood-glucose meter [ReliOn Prime 07/18/19 02/05/21 Meter] lancets [ReliOn Ultra Thin Plus 07/18/19 02/05/21 Lancets] metformin 1,000 mg PO BID 07/18/19 02/05/21 pen needle, diabetic [Pen Needle] 07/18/19 02/05/21 diclofenac sodium [Voltaren] 2 g TOPICAL TID PRN 03/01/20 02/05/21 lisinopril 2.5 mg PO BID 03/01/20 02/05/21 budesonide-formoterol HFA 80 2 puff INHALATION BID 03/11/20 02/05/21 mcg-4.5 mcg/actuation aerosol inhaler pantoprazole 40 mg PO DAILY 04/03/20 02/05/21 ascorbate calcium (vitamin C) 500 500 mg PO DAILY 06/17/20 02/05/21 mg tablet insulin detemir U-100 100 unit/mL 53 unit SUBCUT QHS ml 06/17/20 02/05/21 (3 mL) subcutaneous pen acetaminophen 500 mg PO Q6H PRN #60 tab 02/05/21 hydrocodone-acetaminophen 1 tab PO Q6H PRN #4 tab 02/05/21 ibuprofen 600 mg PO TID PRN #60 tab 02/05/21 Previous Rx's Medication Instructions Recorded levothyroxine 88 mcg PO DAILY #90 tab-cap 01/21/17 acetaminophen 500 mg PO Q6H PRN #60 tab 02/05/21 hydrocodone-acetaminophen 1 tab PO Q6H PRN #4 tab 02/05/21 ibuprofen 600 mg PO TID PRN #60 tab 02/05/21 Allergies Allergy/AdvReac Type Severity Reaction Status Date / Time No Known Allergies Allergy Unverified 02/07/21 13:19 General Stated Complaint: Abd Prob PARDEEP: 4 Review of Systems Constitutional Constitutional: Reports as per HPI, Denies chills, Denies fatigue, Denies fever(s) and Denies headache(s) ENT Ears, Nose, Mouth, and Throat: Denies headache(s) Cardiovascular Cardiovascular: Reports as per HPI, Denies chest pain and Denies dyspnea Respiratory Respiratory: Reports as per HPI, Denies cough and Denies dyspnea Gastrointestinal Gastrointestinal: Reports as per HPI Musculoskeletal Musculoskeletal: Reports as per HPI and Denies back pain Integumentary/Breasts Skin/Breast: Reports as per HPI and Denies rash Neurologic Neurologic: Reports as per HPI and Denies headache(s) Endocrine Endocrine: Denies fatigue PFSH All Active Problems (Updated 02/07/21 @ 15:47 by JORDY Mcclure) Abdominal pain (Acute) Left carpal tunnel syndrome (Acute) Right carpal tunnel syndrome (Acute) Restrictive lung disease (Acute) Obstructive sleep apnea syndrome (Acute) uses C-PAP Increased BMI (Acute) Hypothyroidism (Acute) Hyperlipidemia (Acute) Heart murmur (Acute) Headache (Acute) Diabetes mellitus (Acute) Asthma (Acute) Lumbosacral spondylosis without myelopathy (Acute) Cubital tunnel syndrome on left (Acute) Medical History Achilles tendinitis, left leg Acid reflux Arm numbness Asthma Back pain DM (diabetes mellitus) Type II Heart murmur Pt. states this was a long time ago, and has never had an issue with it Hyperlipidemia Hypertension Hyperuricemia Hypothyroidism Neck pain Obstructive sleep apnea Onychomycosis Otalgia of left ear Polycystic kidney disease Preventative health care Restrictive lung disease Uterine leiomyoma Surgical History Colonoscopy - [facility] (09/30/15) Dr Barillas, repeat 10 years S/P cholecystectomy Family History Mother Essential hypertension Hyperlipidemia Father Heart disease Hyperlipidemia Stroke Brother Essential hypertension Stroke Grandfather Essential hypertension Stroke Grandfather Essential hypertension Stroke Grandmother Essential hypertension Stroke Grandmother Stroke Brother Stroke Son No problems noted. Daughter No problems noted. Daughter No problems noted. Social History Smoking/Tobacco Use Status: Never Smoking risk assessment performed?: Yes Alcohol Intake: never Drug use: Never Substance use type: does not use Household members: spouse Housing: house Number of Children: 3 What type of physical activity do you participate in: none Do you feel safe at home: Yes Do you feel safe in your relationship?: Yes Exam Const General: cooperative, healthy appearing, comfortable, no acute distress and well developed Nutritional Appearance: average body habitus and well nourished Orientation: alert and awake [facility] Head: normal to inspection Mouth: moist mucous membranes Resp Effort & Inspection: normal respiratory effort, able to speak in complete sentences and no respiratory distress Auscultation: clear to auscultation bilaterally, no rales, no rhonchi and no wheezes Cardio Rate: regular rate Rhythm: regular rhythm Heart Sounds: S1 normal and S2 normal GI Inspection: normal to inspection, no edema and non-distended Palpation: soft, no hepatosplenomegaly, not firm, no guarding, no hernias, not rigid and nontender Percussion: normal to percussion Auscultation: normal bowel sounds Back/Spine/Pelvis Back: no CVA tenderness Skin General skin exam: no rashes or lesions noted Trauma: no lacerations or abrasions Neuro General: patient alert and patient awake Cognition: normal cognition Speech: speech normal Gait: normal gait Psych Appearance: grossly normal and well kempt Mental Status: mental status grossly normal Speech and Movement: speech and movement normal Course Vital Signs Vital signs: Vital Signs Temperature 36.5 C 02/07/21 13:14 Pulse 75 02/07/21 13:14 Respiratory Rate 18 02/07/21 13:14 Blood Pressure 136/80 02/07/21 13:14 Pulse Oximetry 100 02/07/21 13:14 Temperature 36.5 C 02/07/21 13:14 Temperature Source Temporal Artery Scan 02/07/21 13:14 Pulse 75 02/07/21 13:14 Respiratory Rate 18 02/07/21 13:14 Respiratory Effort Non-Labored 02/07/21 13:20 Blood Pressure 136/80 02/07/21 13:14 Blood Pressure Position Sitting 02/07/21 13:14 Pulse Oximetry 100 02/07/21 13:14 Oxygen Delivery Method Room Air 02/07/21 13:14 Oxygen Flow Rate 0 02/07/21 13:14
[2021-02-07 14:32] LABS: Abs Immature Grans 0.02 10^3/uL (0.0-0.06); Absolute Basophil Count 0.07 10^3/uL (0.0-0.2); Absolute Eosinophil Count 0.29 10^3/uL (0.0-0.7); Absolute Lymphocyte Count 3.22 10^3/uL (1.2-3.4); Absolute Monocyte Count 0.38 10^3/uL (0.1-0.8); Absolute Neutrophil Count 4.65 10^3/uL (1.2-6.7); Basophils % 0.8; Eosinophils % 3.4; HCT 38.8 % (36.0-46.0); HGB 12.1 g/dL (11.2-15.7); Immature Grans % 0.2; Lymphocytes % 37.3; MCH 27.9 pg (27.0-33.0); MCHC 31.2 % (32.0-36.0); MCV 89.4 fL (80-95); MPV 8.7 fL (8.0-11.0); Monocytes % 4.4; Neutrophils % 53.9; Nucleated RBC 0 %; Platelet Count 230 10^3/uL (130-400); RBC 4.34 10^6/uL (3.93-5.22); RDW 12.9 % (11.7-14.6); RDW-SD 42.3 fL; WBC 8.63 10^3/uL (4.4-10.8)
[2021-02-07 14:33] LABS: Bilirubin Negative (Negative); Blood Negative (Negative); Clarity Clear (Clear); Glucose Negative (Negative); Ketones Negative (Negative); Leukocyte Esterase Negative (Negative); Nitrite Negative (Negative); Urobilinogen 0.2 EU/dL (Up TO 0.2); pH 5.5 (5-8)
[2021-02-07 14:53] LABS: ALT 34 U/L (14-59); AST 15 U/L (15-37); Albumin 4.1 g/dL (3.4-5.0); Alkaline Phosphatase 49 U/L (46-116); Anion Gap 6.9 mmol/L (3-11); BUN 14 mg/dL (7-18); Bilirubin, Total 0.4 mg/dL (0.2-1.0); CO2 30.1 mmol/L (21.0-32.0); CREATININE 0.9 mg/dL (0.55-1.02); Calcium 8.9 mg/dL (8.5-10.1); Chloride 100 mmol/L (98-107); Glucose 156 mg/dL (74-106); Lipase 242 U/L (73-393); Potassium 3.8 mmol/L (3.5-5.1); Sodium 137 mmol/L (136-145)
[2021-02-07] MEDS: Pantoprazole 40 MG VIAL IVP (14:53)
[2021-02-07] MEDS: Mylanta Suspension 30 ML CUP 20 ML PO (14:53)
== END 2021-02-07 16:31 | disposition home or self-care (01) ==
PROVIDERS: Emergency Provider Physician Assistant; PCP Nurse Practitioner Family
DX: R10.13 Epigastric pain (principal); R10.33 Periumbilical pain; Q61.3 Polycystic kidney, unspecified
CPT/HCPCS: 36415; 80053; 83690; 96374; 99284; 81003; 85025; 99283

== ENCOUNTER 2021-02-12 10:36 | Day surgery (SDC) | payer OTHER, SELFPAY ==
--- NOTE | 2021-02-12 06:50 | W.PM.DSUDISC ---
Documented by User: JORDY Savage 02/12/21 06:52 Discharge Plan Disposition Patient Disposition: HOME Condition: Good Discharge Details Reason For Visit: Right ECTR Attending Provider: Otf Lopez Primary Care Provider: Margoth Sommer Home Meds and New Rx's Prescriptions: Continued (DME) blood-glucose meter [ReliOn Prime Meter] Misc MISCELLANEOUS RF: 0 (DME) ReliOn Prime Test Strips Strip MISCELLANEOUS RF: 0 (DME) lancets [ReliOn Ultra Thin Plus Lancets] Misc MISCELLANEOUS RF: 0 albuterol sulfate [ProAir HFA] 90 mcg/actuation Hfa Aerosol Inhaler 2 puff INHALATION Q6H PRNRF: 0 metformin 500 mg Tablet Extended Release 24 Hr 1,000 mg PO BID RF: 0 (DME) pen needle, diabetic [Pen Needle] 31 gauge x 3/16 Needle MISCELLANEOUS RF: 0 diclofenac sodium [Voltaren] 1 % Gel 2 g TOPICAL TID PRNRF: 0 lisinopril 2.5 MG tablet 2.5 mg PO BID RF: 0 budesonide-formoterol [Symbicort] 80-4.5 mcg/actuation HFA aerosol inhaler 2 puff inhalation BID RF: 0 Levemir FlexTouch U-100 Insuln 100 unit/mL (3 mL) insulin pen 58 unit subcut QHS RF: 0 ascorbate calcium (vitamin C) 500 mg tablet 500 mg PO DAILY RF: 0 Flovent HFA 110 mcg/actuation HFA aerosol inhaler 1 puff IH BID RF: 0 AEROCHAMBER 1 EACH spacer 1 ea Miscellaneous PRN Qty: 1 RF: 0 (DME) OneTouch Ultra Test 1 EACH strip 1 strip Miscellaneous DAILY Qty: 100 RF: 4 simvastatin 40 MG tablet 40 mg PO DAILY Qty: 90 RF: 3 levothyroxine 88 MCG tablet 88 mcg PO DAILY Qty: 90 RF: 3 fluticasone propionate [Flonase Allergy Relief] 50 mcg/actuation spray,suspension 1 spray NS DAILY Qty: 1 RF: 3 allopurinol 100 mg Tablet 100 mg PO DAILY RF: 0 pantoprazole 40 mg Tablet,Delayed Release (Dr/Ec) 40 mg PO DAILY RF: 0 hydrocodone-acetaminophen 5-325 mg tablet 1 tab PO Q6H PRN (Reason: severe pain) Qty: 4 RF: 0 acetaminophen 500 mg tablet 500 mg PO Q6H PRN (Reason: pain) Qty: 60 RF: 2 ibuprofen 600 mg tablet 600 mg PO TID PRN (Reason: pain) Qty: 60 RF: 0 Discharge Instructions Stand Alone Forms: Anesthesia Discharge Inst., John Brand Tunnel Release Referrals: Otf Lopez MD [ [facility] STAFF PHYSICIAN] - 02/21/21 9:00 am Activity:: Activity as Tolerated Remove Dressings/Wound Care:: 72 hours Shower/Bathe:: 72 hours Diet:: As Tolerated Discharge Orders Discharge Orders: Discharge Order (Routine); Ordered 02/12/21 Ordered By: Alis Gardner DS: Diagnosis Discharge Diagnosis (1) Right carpal tunnel syndrome: Status: Acute Documented by User: Otf Lopez MD 02/12/21 11:31 Discharge Plan Disposition Patient Disposition: HOME Condition: Good Discharge Details Reason For Visit: Right ECTR Attending Provider: Otf Lopez Primary Care Provider: Margoth Sommer Home Meds and New Rx's Prescriptions: Continued (DME) blood-glucose meter [ReliOn Prime Meter] Misc MISCELLANEOUS RF: 0 (DME) ReliOn Prime Test Strips Strip MISCELLANEOUS RF: 0 (DME) lancets [ReliOn Ultra Thin Plus Lancets] Misc MISCELLANEOUS RF: 0 albuterol sulfate [ProAir HFA] 90 mcg/actuation Hfa Aerosol Inhaler 2 puff INHALATION Q6H PRNRF: 0 metformin 500 mg Tablet Extended Release 24 Hr 1,000 mg PO BID RF: 0 (DME) pen needle, diabetic [Pen Needle] 31 gauge x 3/16 Needle MISCELLANEOUS RF: 0 diclofenac sodium [Voltaren] 1 % Gel 2 g TOPICAL TID PRNRF: 0 lisinopril 2.5 MG tablet 2.5 mg PO BID RF: 0 budesonide-formoterol [Symbicort] 80-4.5 mcg/actuation HFA aerosol inhaler 2 puff inhalation BID RF: 0 Levemir FlexTouch U-100 Insuln 100 unit/mL (3 mL) insulin pen 58 unit subcut QHS RF: 0 ascorbate calcium (vitamin C) 500 mg tablet 500 mg PO DAILY RF: 0 Flovent HFA 110 mcg/actuation HFA aerosol inhaler 1 puff IH BID RF: 0 AEROCHAMBER 1 EACH spacer 1 ea Miscellaneous PRN Qty: 1 RF: 0 (DME) OneTouch Ultra Test 1 EACH strip 1 strip Miscellaneous DAILY Qty: 100 RF: 4 simvastatin 40 MG tablet 40 mg PO DAILY Qty: 90 RF: 3 levothyroxine 88 MCG tablet 88 mcg PO DAILY Qty: 90 RF: 3 fluticasone propionate [Flonase Allergy Relief] 50 mcg/actuation spray,suspension 1 spray NS DAILY Qty: 1 RF: 3 allopurinol 100 mg Tablet 100 mg PO DAILY RF: 0 pantoprazole 40 mg Tablet,Delayed Release (Dr/Ec) 40 mg PO DAILY RF: 0 hydrocodone-acetaminophen 5-325 mg tablet 1 tab PO Q6H PRN (Reason: severe pain) Qty: 4 RF: 0 acetaminophen 500 mg tablet 500 mg PO Q6H PRN (Reason: pain) Qty: 60 RF: 2 ibuprofen 600 mg tablet 600 mg PO TID PRN (Reason: pain) Qty: 60 RF: 0 Discharge Instructions Stand Alone Forms: Anesthesia Discharge Inst., John Brand Tunnel Release Referrals: Otf Lopez MD [ [facility] STAFF PHYSICIAN] - 02/21/21 9:00 am Activity:: Activity as Tolerated Remove Dressings/Wound Care:: 72 hours Shower/Bathe:: 72 hours Diet:: As Tolerated Discharge Orders Discharge Orders: Discharge Order (Routine); Ordered 02/12/21 Ordered By: Alis Gardner
[2021-02-12 11:27] VITALS: BP 120/72; PULSE 75; RESP 16; TEMP 36.1; O2SAT 100
[2021-02-12] MEDS: Lactated Ringers 1,000 ML 80 ML IV (11:55)
--- NOTE | 2021-02-12 12:08 | W.ANESPRE ---
General Info Date of Service Date Performed: 02/12/21 Height: 5 ft 1 in Weight: 70.9 kg Body Mass Index (BMI): 29.5 Surgical Procedure: Operation Date: 02/12/21 13:40 Proposed Procedures Side Surgeon p Wrist ECTR Left Otf Lopez MD Meds Allergies and Home Medications Allergies Allergy/AdvReac Type Severity Reaction Status Date / Time ibuprofen AdvReac Mild Other (See Unverified 02/11/21 14:28 Comment) Home Medication Medication Instructions Recorded OneTouch Ultra Test #100 strip 08/20/14 simvastatin 40 mg PO DAILY #90 tab-cap 09/08/16 levothyroxine 88 mcg PO DAILY #90 tab-cap 01/21/17 fluticasone propionate 110 1 puff IH BID 03/24/18 mcg/actuation HFA aerosol inhaler fluticasone propionate 50 1 spray NS DAILY #1 gm 03/24/18 mcg/actuation nasal spray,suspension allopurinol 100 mg PO DAILY 12/06/18 ReliOn Prime Test Strips 07/18/19 albuterol sulfate [ProAir HFA] 2 puff INHALATION Q6H PRN 07/18/19 blood-glucose meter [ReliOn Prime 07/18/19 Meter] lancets [ReliOn Ultra Thin Plus 07/18/19 Lancets] metformin 1,000 mg PO BID 07/18/19 pen needle, diabetic [Pen Needle] 07/18/19 diclofenac sodium [Voltaren] 2 g TOPICAL TID PRN 03/01/20 lisinopril 2.5 mg PO BID 03/01/20 budesonide-formoterol HFA 80 2 puff INHALATION BID 03/11/20 mcg-4.5 mcg/actuation aerosol inhaler pantoprazole 40 mg PO DAILY 04/03/20 ascorbate calcium (vitamin C) 500 500 mg PO DAILY 06/17/20 mg tablet insulin detemir U-100 100 unit/mL 58 unit SUBCUT QHS ml 06/17/20 (3 mL) subcutaneous pen acetaminophen 500 mg PO Q6H PRN #60 tab 02/05/21 hydrocodone-acetaminophen 1 tab PO Q6H PRN #4 tab 02/05/21 ibuprofen 600 mg PO TID PRN #60 tab 02/05/21 Current Visit Medications: Current Medications Generic Name Dose Route Start Last Admin Trade Name Freq PRN Reason Stop Dose Admin Acetaminophen 650 mg 02/12/21 06:49 Acetaminophen 325 Mg Tab PO Q4H PRN PRN Hydrocodone Bitart/Acetaminophen 1 tab 02/12/21 11:31 Hydrocodone 5/Acetaminophen 325 Tab PO Q4H PRN PRN Ringer's Solution 1,000 mls @ 80 mls/hr 02/12/21 06:00 02/12/21 11:55 IV 02/14/21 23:59 80 mls/hr INFUSION ABIEL Administration Cefazolin Sodium/Dextrose 2 gm in 50 mls @ 100 mls/hr 02/12/21 06:00 Ancef Duplex IVPB 02/12/21 16:00 PREOP ABIEL Ondansetron HCl 4 mg/ Sodium 52 mls @ 200 mls/hr 02/12/21 06:49 Chloride IVPB Q6H PRN PRN IV Miscellaneous Supplies 1 each 02/12/21 06:00 Iv Access IV 02/14/21 23:59 DIRECTED ABIEL Sodium Chloride 0 ml 02/12/21 06:00 Normal Saline Flush 10 Ml Syr IV 02/14/21 23:59 PRN PRN Sodium Chloride 0 ml 02/12/21 06:00 Normal Saline 10 Ml Vial IJ 02/14/21 23:59 DIRECTED PRN Sterile Water 0 ml 02/12/21 06:00 Water,Injection,Sterile 10 Ml Vial IJ 02/14/21 23:59 DIRECTED PRN PFSH Active Problems Active Problems: Problem Status Onset Code Restrictive lung disease J98.4 Obstructive sleep apnea syndrome G47.33 Increased BMI R63.8 Hypothyroidism E03.9 Hyperlipidemia E78.5 Heart murmur R01.1 Headache R51 Diabetes mellitus E11.9 Asthma J45.909 Lumbosacral spondylosis without myelopathy M47.817 Cubital tunnel syndrome on left G56.22 Right carpal tunnel syndrome G56.01 Left carpal tunnel syndrome G56.02 Abdominal pain R10.9 Medical History Medical History Achilles tendinitis, left leg Acid reflux Arm numbness Asthma Back pain DM (diabetes mellitus) Type II Heart murmur Pt. states this was a long time ago, and has never had an issue with it Hyperlipidemia Hypertension Hyperuricemia Hypothyroidism Neck pain Obstructive sleep apnea Onychomycosis Otalgia of left ear Polycystic kidney disease Preventative health care Restrictive lung disease Uterine leiomyoma Surgical History Surgical History (Updated 02/12/21 @ 11:34 by Carla Alex) Colonoscopy - [facility] (09/30/15) Dr Barillas, repeat 10 years History of carpal tunnel surgery of right wrist Hx of removal of cyst chest S/P cholecystectomy Tobacco Smoking/Tobacco Use Status: Never Alcohol Alcohol Intake: never Substance Use Substance use: Never Substance use type: does not use Vital Signs and Lab Results Vital Signs Most Recent Vital Signs in EMR: Most Recent Vital Signs Temp Pulse Resp BP Pulse Ox 36.1 C L 75 16 120/72 100 02/12/21 11:27 02/12/21 11:27 02/12/21 11:27 02/12/21 11:27 02/12/21 11:27 Lab Results Blood Type / Crossmatch: No Data to Display Complete Blood Count: White Blood Count 8.63 10^3/uL (4.4-10.8) 02/07/21 14:24 02/07/21 Red Blood Count 4.34 10^6/uL (3.93-5.22) 02/07/21 14:24 02/07/21 Hemoglobin 12.1 g/dL (11.2-15.7) 02/07/21 14:24 02/07/21 Hematocrit 38.8 % (36.0-46.0) 02/07/21 14:24 02/07/21 Platelet Count 230 10^3/uL (130-400) 02/07/21 14:24 02/07/21 Complete Metabolic Panel: Sodium Level 137 mmol/L (136-145) 02/07/21 14:24 02/07/21 Potassium Level 3.8 mmol/L (3.5-5.1) 02/07/21 14:24 02/07/21 Chloride Level 100 mmol/L (98-107) 02/07/21 14:24 02/07/21 Carbon Dioxide Level 30.1 mmol/L (21.0-32.0) 02/07/21 14:24 02/07/21 Blood Urea Nitrogen 14 mg/dL (7-18) 02/07/21 14:24 02/07/21 Creatinine 0.9 mg/dL (0.55-1.02) 02/07/21 14:24 02/07/21 Estimated GFR/1.73 m2 >= 60.00 (mL/min/1.73m2) 02/07/21 14:24 02/07/21 Calcium Level 8.9 mg/dL (8.5-10.1) 02/07/21 14:24 02/07/21 Albumin 4.1 g/dL (3.4-5.0) 02/07/21 14:24 02/07/21 Glucose Level 156 mg/dL (74-106) H 02/07/21 14:24 02/07/21 Hemoglobin A1c 7.4 % (<5.7) H 01/21/21 10:45 01/21/21 Liver Function Panel: Alanine Aminotransferase (ALT/SGPT) 34 U/L (14-59) 02/07/21 14:24 02/07/21 Aspartate Amino Transf (AST/SGOT) 15 U/L (15-37) 02/07/21 14:24 02/07/21 Coagulation Panel: No Data to Display Cardiac Panel: No Data to Display Arterial Blood Gas: No Data to Display Venous Blood Gas: No Data to Display Pancreas Panel: Lipase 242 U/L (73-393) 02/07/21 14:24 02/07/21 Thyroid Panel: Thyroid Stimulating Hormone (TSH) 1.49 uIU/mL (0.36-3.74) 01/21/21 10:45 01/21/21 Infectious Disease: Coronavirus (COVID-19)(PCR) Negative (Negative) 02/11/21 08:55 02/11/21 Coronavirus 2019 Source Nasal/Nares 02/11/21 08:55 02/11/21 Blood Cultures: No Data to Display Toxicology Panel: No Data to Display Anesthesia Assessment and Plan Anesthesia History Personal History: No History of Anesthesia Complications Family History: No Family History of Anesthesia Complications Exercise Tolerance Exercise Tolerance: Metabolic Equivalents>4 Pertinent Negatives Pertinent Negatives: No Symptoms of GERD, No Major Cardiovascular Symptoms or Complaints and No History of CVA/TIA Cardiac & Pulmonary Exam Cardiac Exam: Normal S1/S2 Heart Sounds Pulmonary Exam: Clear Bilateral Breath Sounds Implantable Cardiac Device Does patient have a Pacemaker or an ICD?: No Airway Exam Known Difficult Airway: No Mallampati Class: 1 Mouth Opening: Normal (> 3cm) Thyromental Distance: Greater than 3 cm Neck Range of Motion: Full ROM Neck Circumference: Normal Teeth Condition: Removable Dentures/Plates Upper and Removable Dentures/Plates Lower ASA Classification ASA Score: ASA 2 Emergency Case?: No NPO Status NPO Status: NPO Clears >2 hours, Solids >8 hours Anesthesia Plan Resuscitation Status: Full Code Anesthesia Technique: General Anesthesia Airway Planned: Natural Airway Monitors Used: Standard Monitors
[2021-02-12 12:21] VITALS: BMI 29.5
[2021-02-12] MEDS: ceFAZolin 2 GM/50 ML BAG IVPB (12:41)
[2021-02-12] MEDS: Sodium Bicarbonate 50 MEQ/50 ML VIAL (12:49)
[2021-02-12 13:03] VITALS: BP 120/61; PULSE 80; RESP 15; TEMP 36; O2SAT 100
--- NOTE | 2021-02-12 13:22 | W.PM.OP ---
Date of service: 02/12/21 Time of Service: 13:00 Operative Note Operative Note DATE OF PROCEDURE: 02/12/21 PRE-OP DIAGNOSIS: Left Carpal Tunnel Syndrome POST-OP DIAGNOSIS: same PROCEDURE: Left Endoscopic Carpal Tunnel Release SURGEON: Otf Lopez ANESTHESIA TYPE: General:No Airway Refer to Anesthesia Record ESTIMATED BLOOD LOSS: 0 PATHOLOGY: none sent TOURNIQUET TIME: 6 COMPLICATIONS: None Patient was transported to: same day Patient's condition: stable Indications: I have seen Verónica in clinic for symptoms of carpal tunnel syndrome. The numbness, tingling, and pain limited function. Clinical exam findings with nerve conduction tests confirmed the diagnosis of carpal tunnel syndrome. She had the right side released last week with good results. Nonoperative measures such as bracing, time, activity modifications had been tried but disability and pain persisted. I discussed carpal tunnel release with the patient. I reviewed the risks of the procedure to include, but not limited to, bleeding, infection, pain, stiffness, incomplete release, damage to nerves or vessels, persistent numbness, recurrence. Despite these risks, the patient elected to proceed. Findings: There was tightened carpal tunnel. This was dilated and released successfully with the endoscopic with increased space within the tunnel. The antebrachial fascia was released proximally freeing the median nerve at the wrist. Procedure Description: Verónica was greeted in the preoperative holding area where the correct side was identified and marked. The consent was reviewed with the patient and signed. The history and physical was updated. All questions were answered. She was taken back to the operating room. The patient was placed into the supine position on the operating room table with the left arm on an arm board. A nonsterile tourniquet was placed high onto the arm. All bony prominences were well padded. Prophylactic antibiotics in the form of Cefazolin were administered. The left arm was then prepped with Chloraprep and draped in a standard fashion with stockinette and extremity drape. A timeout to confirm correct identity, side and site, procedure, allergies, anesthesia, and medical concerns was performed. The surgical site was marked in the volar wrist creases in line with the radial border of the fourth ray. This area was anesthetized with approximately 6cc of 1% Lidocaine. The limb was then exsanguinated with an Esmarch. The skin was incised with a 15 blade, approximately 1cm. The skin only was cut and the deeper tissue was dissected bluntly with a tenotomy scissor, avoiding passing nerve and venous structures. The fascia was penetrated and opened bluntly. A two-prong skin hook was placed under this proximal fascial edge. A series of hamate finders were used to identify and dilate the carpal tunnel. Synovial elevator was used to free synovial attachments to the underside of the transverse carpal ligament. My thumb was kept in the palm to mike the distal extent of the carpal tunnel and correctly position the hand. The Microaire endoscope was inserted without difficulty and without resistance. Excellent visualization showed horizontally running fibers of the transverse carpal ligament (TCL). The distal extent of the TCL was visualized and the end of the scope palpated with the thumb. The blade was elevated and withdrawn from distal to proximal. The TCL was split into two flaps. The endoscope was reinserted to confirm complete release and any remnant ligament was incised. The scope was withdrawn and the proximal aspect of the carpal tunnel was grossly inspected and appeared release with the median nerve visible. The antebrachial fascia at the level of the wrist was then freed from the overlying skin and then the underlying median nerve with blunt dissection. This was transected longitudinally for about 3cm proximal to the wrist incision. The wound was then irrigated with easy flow of irrigant distally and proximally. The incision was closed with a single 4-0 Nylon suture. The wound was dressed with Xeroform, Gauze, Kerlix and Zak. The tourniquet was deflated with the initial dressing and held with some pressure. Blood flow returned easily to all digits with capillary refill less than 2 seconds. The patient tolerated the procedure well and was returned to the Same Day Surgery area in a stable condition suffering no known complication.
--- NOTE | 2021-02-12 13:29 | W.ANESPOSTOP ---
Postoperative Evaluation Date, Time and Location Date Performed: 02/12/21 Time Performed: 13:30 Patient Location: Day Surgery Unit Vital Signs Most Recent Imported Vital Signs: Most Recent Vital Signs Temp Pulse Resp BP Pulse Ox 36 C L 80 15 120/61 100 02/12/21 13:03 02/12/21 13:03 02/12/21 13:03 02/12/21 13:03 02/12/21 13:03 Pain Score Most Recent Pain Score: Most Recent Pain Score Pain Level 0 02/12/21 13:03 Assessment Mental Status: Awake (Alert & Oriented to Patient Baseline) Airway and Respiratory Function: Patent airway with normal (patient baseline) respiratory exam Cardiovascular Function: Hemodynamically Stable Hydration Status: Adequately Hydrated Nausea & Vomiting: No Nausea or Vomiting Pain: Pt. Denies Any Pain Peripheral Nerve Block: Patient did not receive a nerve block
[2021-02-12 13:31] VITALS: BP 127/75; PULSE 78; RESP 16; TEMP 36.5; O2SAT 98
== END 2021-02-12 14:00 | disposition home or self-care (01) ==
LOC: SUR 10:36
PROVIDERS: PCP Nurse Practitioner Family; Visit Provider Student in an Organized Health Care Education/Training Program
PROC: 01N54ZZ Release Median Nerve, Percutaneous Endoscopic Approach (ICD-10-PCS; CPT 29848; principal; 2021-02-12 13:30)
DX: G56.02 Carpal tunnel syndrome, left upper limb (principal); G47.33 Obstructive sleep apnea (adult) (pediatric); E11.9 Type 2 diabetes mellitus without complications; J45.909 Unspecified asthma, uncomplicated
CPT/HCPCS: 29848; J0690

== ENCOUNTER 2021-07-01 20:08 | Emergency (ER) | payer OTHER, SELFPAY ==
[2021-07-01 20:21] VITALS: BP 129/75; PULSE 77; RESP 18; TEMP 36.5; O2SAT 98
[2021-07-01] MEDS: Ondansetron O.D.T. 4 MG TABEF, 3 TABS/BTL PO (20:45)
[2021-07-01] MEDS: Omeprazole 20 MG CAPCR PO (20:45)
--- NOTE | 2021-07-01 21:02 | ED.GENADUL_ITS ---
Discharge Plan Disposition Patient Disposition: HOME Condition: Good Discharge Details Clinical Impression: Nausea & vomiting Primary Care Provider: Margoth Sommer ED Provider: Jesus Rodgers Home Meds and New Rx's Prescriptions: New ondansetron HCl [Zofran] 4 mg tablet 4 mg PO Q8H Qty: 12 0RF omeprazole 40 mg capsule,delayed release(DR/EC) 40 mg PO DAILY Qty: 30 0RF Continued (DME) blood-glucose meter [ReliOn Prime Meter] Misc MISCELLANEOUS (DME) ReliOn Prime Test Strips Strip MISCELLANEOUS (DME) lancets [ReliOn Ultra Thin Plus Lancets] Misc MISCELLANEOUS albuterol sulfate [ProAir HFA] 90 mcg/actuation Hfa Aerosol Inhaler 2 puff INHALATION Q6H PRN metformin 500 mg Tablet Extended Release 24 Hr 1,000 mg PO BID (DME) pen needle, diabetic [Pen Needle] 31 gauge x 3/16 Needle MISCELLANEOUS diclofenac sodium [Voltaren] 1 % Gel 2 g TOPICAL TID PRN lisinopril 2.5 MG tablet 2.5 mg PO BID budesonide-formoterol [Symbicort] 80-4.5 mcg/actuation HFA aerosol inhaler 2 puff inhalation BID Levemir FlexTouch U-100 Insuln 100 unit/mL (3 mL) insulin pen 58 unit subcut QHS ascorbate calcium (vitamin C) 500 mg tablet 500 mg PO DAILY Flovent HFA 110 mcg/actuation HFA aerosol inhaler 1 puff IH BID AEROCHAMBER 1 EACH spacer 1 ea Miscellaneous PRN Qty: 1 0RF (DME) OneTouch Ultra Test 1 EACH strip 1 strip Miscellaneous DAILY Qty: 100 Rx Instructions: DX:250.0 ONE TOUCH ULTRA MINI simvastatin 40 MG tablet 40 mg PO DAILY Qty: 90 levothyroxine 88 MCG tablet 88 mcg PO DAILY Qty: 90 3RF fluticasone propionate [Flonase Allergy Relief] 50 mcg/actuation spray,suspension 1 spray NS DAILY Qty: 1 Label Comments: Each Nostril allopurinol 100 mg Tablet 100 mg PO DAILY pantoprazole 40 mg Tablet,Delayed Release (Dr/Ec) 40 mg PO DAILY Label Comments: 02/12/21 Pt reports having run out of rx and awaiting [place] [facility] to renew. acetaminophen 500 mg tablet 500 mg PO Q6H PRN (Reason: pain) Qty: 60 2RF ibuprofen 600 mg tablet 600 mg PO TID PRN (Reason: pain) Qty: 60 0RF Discharge Instructions Instructions: Acute Nausea and Vomiting (ED) Additional Instructions: At this time your symptoms are consistent with a mild viral illness likely brought on by something that you ate. Please take the Zofran as directed. Please stick with a bland diet of fluids, rice, applesauce, bananas and crackers. Please take the omeprazole as directed. If you notice any worsening of your symptoms, or any new symptoms such as vomiting, diarrhea, fever, chills, shortness of breath, chest pain, numbness, weakness, or fainting , please return immediately to the emergency department for reevaluation. Please follow up with your primary care provider as soon as possible for reassessment and reevaluation. As always, it was a pleasure participating in your medical care today. Referrals: Margoth Sommer [Primary Care Provider] - Medical Decision Making 60-year-old female with a past medical history of type 2 diabetes, previous cholecystectomy, GERD, polycystic kidney disease, presents today for evaluation of nausea and burning in the epigastrium. Patient states that 2 and half days ago she went to [employer] and ate out, and then within 12 hours she had epigastric discomfort and has had subsequent 3 total episodes of vomiting. She denies any blood. She denies any hematemesis. She states that she has had a loose episode of stool usually associated with the episodes of vomiting. She denies any blood in her stool. She denies any other sick contacts. She denies any generalized abdominal pain just admits to burning in the epigastrium. She states that every time she eats she gets nauseous and wants to vomit again. She has been able to keep down fluids but not any solids. She admits to a sour sensation in the epigastrium. She denies any lower abdominal pain. She denies any fever or chills. She states that she is out of her omeprazole which she normally takes when she has these reflux-like symptoms. No other complaints at this time. No other modifying factors. She denies any history of pancreatitis. She denies any recent alcohol use. Physical exam demonstrates a well-appearing female. No significant abdominal tenderness or bloating. Minimal epigastric achiness. No signs of an acute surgical abdomen. Mucous membranes are moist. Vital signs notably stable with no evidence of tachycardia or profound dehydration. Symptoms are likely secondary to a combination of reflux, gastritis, likely brought on by something that she ate while going out to eat. No indication for emergent imaging at this time. With no signs of profound dehydration I see no indication for IV fluids. With no profound episodes of vomiting I do not see high clinical suspicion for electrolyte imbalance. Will give Zofran, and omeprazole, perform p.o. trial, monitor closely and reassess. Symptoms appear inconsistent with ACS at this time. Patient denies any history of cardiac disease. She denies any tearing or ripping sensation in her chest. She denies any chest tightness, chest heaviness, arm neck or shoulder pain. 10 PM On reassessment the patient is feeling much better. She has been able to tolerate p.o. well. Repeat exam continues to show no signs of an acute surgical abdomen. Suspect viral gastroenteritis it is. Will give Zofran for home use as well as omeprazole. I did discuss with her that if her symptoms persisted or worsened it would be good for her to come back to get rechecked and reassess. I have extensively reviewed the treatment plan and discharge instructions with the patient. I have addressed all patient concerns at this time. The patient was made aware of what symptoms to monitor for that would warrant a return to the emergency department. Discussed the plan with the patient, they demonstrate verbal understanding and agreement with our assessment and plan at this time. The documentation in this chart was dictated using [employer] dictation software. Please excuse any dictation errors. HPI General Date/Time Provider Initiated Documentation: 07/01/21 20:13 . HPI Narrative: 60-year-old female with a past medical history of type 2 diabetes, previous cholecystectomy, GERD, polycystic kidney disease, presents today for evaluation of nausea and burning in the epigastrium. Patient states that 2 and half days ago she went to [employer] and ate out, and then within 12 hours she had epigastric discomfort and has had subsequent 3 total episodes of vomiting. She denies any blood. She denies any hematemesis. She states that she has had a loose episode of stool usually associated with the episodes of vomiting. She denies any blood in her stool. She denies any other sick contacts. She denies any generalized abdominal pain just admits to burning in the epigastrium. She states that every time she eats she gets nauseous and wants to vomit again. She has been able to keep down fluids but not any solids. She admits to a sour sensation in the epigastrium. She denies any lower abdominal pain. She denies any fever or chills. She states that she is out of her omeprazole which she normally takes when she has these reflux-like symptoms. No other complaints at this time. No other modifying factors. She denies any history of pancreatitis. She denies any recent alcohol use. Related Data Home Medications Medication Instructions Recorded Confirmed blood sugar diagnostic (OneTouch #100 strips 08/20/14 02/21/21 Ultra Test strips) simvastatin 40 mg tablet 40 mg PO DAILY #90 tab-caps 09/08/16 07/01/21 levothyroxine 88 mcg tablet 88 mcg PO DAILY #90 tab-caps 01/21/17 07/01/21 fluticasone propionate 110 1 puff inhalation BID 03/24/18 07/01/21 mcg/actuation HFA aerosol inhaler (Flovent HFA) fluticasone propionate 50 1 spray NS DAILY #1 g 03/24/18 07/01/21 mcg/actuation nasal spray,suspension (Flonase Allergy Relief) allopurinol 100 mg tablet 100 mg PO DAILY 12/06/18 07/01/21 albuterol sulfate 90 mcg/actuation 2 puff inhalation Q6H PRN 07/18/19 07/01/21 aerosol inhaler (ProAir HFA) blood sugar diagnostic (ReliOn 07/18/19 02/21/21 Prime Test Strips) blood-glucose meter (ReliOn Prime 07/18/19 02/21/21 Meter) lancets (ReliOn Ultra Thin Plus 07/18/19 02/21/21 Lancets) metformin 500 mg tablet,extended 1,000 mg PO BID 07/18/19 07/01/21 release 24 hr pen needle, diabetic 31 gauge x 07/18/19 02/21/21 3/16 (Pen Needle) diclofenac sodium 1 % topical gel 2 g topical TID PRN 03/01/20 02/21/21 (Voltaren) lisinopril 2.5 mg tablet 2.5 mg PO BID 03/01/20 07/01/21 budesonide-formoterol HFA 80 2 puff inhalation BID 03/11/20 07/01/21 mcg-4.5 mcg/actuation aerosol inhaler (Symbicort) pantoprazole 40 mg tablet,delayed 40 mg PO DAILY 04/03/20 07/01/21 release ascorbate calcium (vitamin C) 500 500 mg PO DAILY 06/17/20 07/01/21 mg tablet insulin detemir U-100 100 unit/mL 58 unit subcut QHS 06/17/20 07/01/21 (3 mL) subcutaneous pen (Levemir FlexTouch U-100 Insulin) acetaminophen 500 mg tablet 500 mg PO Q6H PRN pain #60 tabs 02/05/21 02/21/21 ibuprofen 600 mg tablet 600 mg PO TID PRN pain #60 tabs 02/05/21 02/21/21 omeprazole 40 mg capsule,delayed 40 mg PO DAILY #30 caps 07/01/21 release ondansetron HCl 4 mg tablet 4 mg PO Q8H #12 tabs 07/01/21 (Zofran) Previous Rx's Medication Instructions Recorded levothyroxine 88 mcg tablet 88 mcg PO DAILY #90 tab-caps 01/21/17 acetaminophen 500 mg tablet 500 mg PO Q6H PRN pain #60 tabs 02/05/21 ibuprofen 600 mg tablet 600 mg PO TID PRN pain #60 tabs 02/05/21 omeprazole 40 mg capsule,delayed 40 mg PO DAILY #30 caps 07/01/21 release ondansetron HCl 4 mg tablet 4 mg PO Q8H #12 tabs 07/01/21 (Zofran) Allergies Allergy/AdvReac Type Severity Reaction Status Date / Time ibuprofen AdvReac Mild Other (See Verified 07/01/21 20:24 Comment) General Stated Complaint: Nausea/Vomit/Diar PARDEEP: 3 Review of Systems All systems reviewed & are unremarkable except as noted in HPI and below PFSH All Active Problems (Updated 07/01/21 @ 21:43 by Jesus Rodgers DO) Nausea & vomiting (Acute) Lumbar radiculitis (Acute) Restrictive lung disease (Acute) Obstructive sleep apnea syndrome (Acute) uses C-PAP Increased BMI (Acute) Hypothyroidism (Acute) Hyperlipidemia (Acute) Heart murmur (Acute) Headache (Acute) Diabetes mellitus (Acute) Asthma (Acute) Lumbosacral spondylosis without myelopathy (Acute) Cubital tunnel syndrome on left (Acute) Medical History Achilles tendinitis, left leg Acid reflux Arm numbness Asthma Back pain DM (diabetes mellitus) Type II Heart murmur Pt. states this was a long time ago, and has never had an issue with it Hyperlipidemia Hypertension Hyperuricemia Hypothyroidism Neck pain Obstructive sleep apnea Onychomycosis Otalgia of left ear Polycystic kidney disease Preventative health care Restrictive lung disease Uterine leiomyoma Surgical History Colonoscopy - [facility] (09/30/15) Dr Barillas, repeat 10 years History of carpal tunnel surgery of right wrist Hx of removal of cyst chest Left carpal tunnel syndrome (02/12/21) s/p ECTR Right carpal tunnel syndrome (02/05/21) s/p ECTR S/P cholecystectomy Family History Mother Essential hypertension Hyperlipidemia Father Heart disease Hyperlipidemia Stroke Brother Essential hypertension Stroke Grandfather Essential hypertension Stroke Grandfather Essential hypertension Stroke Grandmother Essential hypertension Stroke Grandmother Stroke Brother Stroke Son No problems noted. Daughter No problems noted. Daughter No problems noted. Social History Smoking/Tobacco Use Status: Never Smoking risk assessment performed?: Yes Alcohol Intake: never Drug use: Never Substance use type: does not use Household members: spouse Housing: house Number of Children: 3 What type of physical activity do you participate in: none Do you feel safe at home: Yes Do you feel safe in your relationship?: Yes Exam Narrative Exam Narrative: 1.Const: Well-nourished, Well-developed, appearing stated age 2.Eyes: PERRL, no conjunctival injection, and symmetrical lids. 3.ENT: Atraumatic external nose and ears. Moist MM. Neck: Symmetric, trachea midline, No thyromegaly. 4.CVS: +S1/S2, No murmurs or gallops. Peripheral pulses 2+ and equal in all extremities. Brisk capillary refill in all extremities. 5.RESP: Unlabored respiratory effort. Clear to auscultation bilaterally. No wheezes rales or rhonchi 6.GI: Soft, nondistended, no guarding or rebound. No significant tenderness on palpation. No pain to McBurney's point. Negative Michaud sign. Minimal epigastric achiness. No signs of an acute surgical abdomen. 7.MSK: Normocephalic/Atraumatic, Extremities w/o deformity or ttp No cyanosis or clubbing, Normal movement of all extremities 8.Skin: Warm, Dry. No rashes or lesions. 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 Sensation grossly intact, no focal neurologic deficits. 10.Psych: (AAO) x3. Appropriate mood and affect Course Vital Signs Vital signs: Vital Signs Temperature 36.5 C 07/01/21 20:21 Pulse 77 07/01/21 20:21 Respiratory Rate 18 07/01/21 20:21 Blood Pressure 129/75 07/01/21 20:21 Pulse Oximetry 98 07/01/21 20:21 Temperature 36.5 C 07/01/21 20:21 Temperature Source Temporal Artery Scan 07/01/21 20:21 Pulse 77 07/01/21 20:21 Respiratory Rate 18 07/01/21 20:21 Blood Pressure 129/75 07/01/21 20:21 Blood Pressure Position Sitting 07/01/21 20:21 Pulse Oximetry 98 07/01/21 20:21 Oxygen Delivery Method Room Air 07/01/21 20:21 Oxygen Flow Rate 0 07/01/21 20:21
== END 2021-07-01 21:55 | disposition home or self-care (01) ==
PROVIDERS: Emergency Provider Student in an Organized Health Care Education/Training Program; PCP Nurse Practitioner Family
DX: R11.2 Nausea with vomiting, unspecified (principal); E11.9 Type 2 diabetes mellitus without complications
CPT/HCPCS: 36416; 82962; 99283; 99284

== ENCOUNTER 2021-07-21 13:44 | Outpatient (REF) | payer OTHER, SELFPAY ==
[2021-07-21 16:07] LABS: ALT 39 U/L (14-59); AST 23 U/L (15-37); Albumin 3.9 g/dL (3.4-5.0); Alkaline Phosphatase 47 U/L (46-116); Anion Gap 8.7 mmol/L (3-11); BUN 14 mg/dL (7-18); Bilirubin, Total 0.4 mg/dL (0.2-1.0); CO2 26.3 mmol/L (21.0-32.0); CREATININE 0.7 mg/dL (0.55-1.02); Calcium 8.6 mg/dL (8.5-10.1); Chloride 104 mmol/L (98-107); Creatine Kinase 272 U/L (26-192); Glucose 138 mg/dL (74-106); HDL Cholesterol 63 mg/dL (40-60); Hemoglobin A1C 8.9 % (<5.7); LDL CHOLESTEROL 53 mg/dL (<100); Potassium 4.5 mmol/L (3.5-5.1); Sodium 139 mmol/L (136-145)
== END 2021-07-21 13:45 | disposition home or self-care (01) ==
LOC: NCHCN 13:44
PROVIDERS: PCP Nurse Practitioner Family; Visit Provider Nurse Practitioner Family
DX: E78.5 Hyperlipidemia, unspecified (principal); E11.9 Type 2 diabetes mellitus without complications
CPT/HCPCS: 80053; 82550; 83721; 83036; 83718

== ENCOUNTER → 2021-09-04 00:42 | Outpatient (CLI) | payer OTHER, SELFPAY ==
--- NOTE | 2021-09-04 | DI.US_ITS ---
APPROVED REPORT EXAM: Comprehensive 2D, Doppler, and color-flow Echocardiogram Patient Location: Out-Patient Rn Endocrinology: Jessica Hathaway RDCS (AE) Indications: Edema of Ankles Other Information Study Quality: Adequate Conclusion Normal left ventricular wall thickness and chamber size. Estimated ejection fraction is 60%. Wall m otion is normal Normal right ventricular size and systolic function Both atria are normal in size There is no structural or hemodynamically significant valvular disease Estimated right ventricular systolic pressure is 14 mmHg Wall motion Left Ventricle The left ventricle is normal size. The left ventricular systolic function is normal. The left ventric ular ejection fraction is within the normal range. There is normal left ventricular wall thickness. T here is normal LV segmental wall motion. There is no ventricular septal defect visualized. LVEF is 60 %. Right Ventricle The right ventricle is normal size. The right ventricular systolic function is normal. The RVSP is 14 .2 mmHg. Atria The left atrium size is normal. The right atrium size is normal. The interatrial septum is intact wit h no evidence for an atrial septal defect. Aortic Valve The aortic valve is normal in structure. There is no aortic valvular stenosis. Trace aortic regurgita tion. Mitral Valve The mitral valve is normal in structure. No evidence of mitral valve stenosis. Trace mitral regurgita tion. Tricuspid Valve The tricuspid valve is normal in structure. There is no tricuspid valve stenosis. Trace tricuspid reg urgitation. Pulmonic Valve The pulmonary valve is normal in structure. There is no pulmonic valvular stenosis. Trace pulmonic re gurgitation. Great Vessels The aortic root is normal in size. The ascending aorta is normal in size. Aortic arch is normal in ca liber. IVC is normal in size and collapses >50% with inspiration. Pericardium There is no pericardial effusion. 2D Dimensions IVSD d PLAX 1.03 cm F: 0.6-1.0 LV Vol A2C d MOD 67.6 mL LVPW d PLAX 1.01 cm F: 0.6 - 1.0 LV Vol A4C d MOD 69.4 mL LVID d PLAX 3.97 cm F: 3.8 - 5.2 LA vol/ BSA A2C s A-L 18.5 mL/m2 LVDs 2.70 cm F: 2.2 - 3.5 LA vol/ BSA A4C s A-L 18.7 mL/m2 Ao Root d 2.56 cm F: 2.7 - 3.3 LA Vol/ BSA Biplane s A-L 19.0 mL/m2 RA Area A4C 10.25 cm2 LA Area A4C s MOD 13.91 cm2 RA Vol/ BSA A4C s A-L 13.2 mL/m2 LA Area A2C s MOD 14.08 cm2 Ao Asc Diam d 3.37 cm F: 2.3 - 3.1 LV EF A4C MOD 59.3 % LV EF Teichholz 60.6 % LV EF A2C MOD 59.2 % LVEF (Auguste's) 59.65 % F: 54 - 74 LV EF Biplane MOD 59.7 % LV Volume 54.81 mL F: 46 - 106 SV 41.51 mL LV Volume Index 31.50 mL/m2 F: 29 - 61 SV Index 23.88 mL/m2 LV Vol Biplane MOD 69.6 mL FS 31.90 % M-Mode TAPSE 1.62 cm (M/F) >1.7 LV Diastology MV E' medial 0.072 (>0.07 m/s) E/A Ratio 0.9 LV E/e MED 12.00 (<14) MV E Vmax 0.87 (0.4-1.3 m/s) MV E' lateral 0.090 (>0.1 m/s) MV A Vmax 0.95 (0.4-1.3 m/s) LV E/e LAT 9.65 (<14) MV E/A Ratio 0.89 MV E/E' medial 12.01 MV E/E' lateral 9.66 Aortic Valve LVOT Area 2.95 cm2 AoV Area Vmax 2.33 cm2 LVOT Vmax 1.10 m/s AoV Area/ BSA (Vmax) 1.34 cm2/m2 LVOT Mean Hakeem. 0.69 m/s KEITH Mean Hakeem. 2.14 cm2 LVOT Peak Grad 4.8 mmHg KEITH Mean Hakeem. Index 1.23 cm2/m2 LVOT Mean Grad 2.3 mmHg AR DT 2394 msec LVOT VTI 0.244 m AR PHT 694 msec LVOT Diam s 1.90 cm AoV Vmax 1.39 m/s Velocity Ratio 0.79 AoV Mean Hakeem. 0.96 m/s AoV Peak Grad 7.7 mmHg LVOT SV 71.96 mL AoV Mean Grad 4.2 mmHg AoV VTI 0.285 m AoV Area VTI 2.53 cm2 AoV Area/ BSA (VTI) 1.45 cm/m2 Mitral Valve MV DT 228 (160-240 msec) MV PHT 66 msec MV Area PHT 3.33 cm2 MV VTI 0.293 m MV Area VTI 2.46 (4.0-6.0 cm2) Pulmonary Valve PV Vmax 0.81 (0.5-1.5 m/s) RVOT Peak Gr. 1.66 mmHg PV Peak Grad 2.6 mmHg RVOT Mean Gr. 0.80 mmHg PV Mean Grad 1.5 mmHg RVOT VTI 0.148 m PV VTI 0.170 m RVOT Vmax 0.64 m/s Tricuspid Valve TR Peak Grad 11.2 mmHg TR Vmax 1.67 m/s RA Pressure 3.00 mmHg RVSP (TR) 14.2 mmHg
== END ==
PROVIDERS: PCP Nurse Practitioner Family; Visit Provider Nurse Practitioner Family
DX: R22.43 Localized swelling, mass and lump, lower limb, bilateral (principal)
CPT/HCPCS: 93306

== ENCOUNTER → 2021-09-12 00:08 | Outpatient (CLI) | payer OTHER, SELFPAY ==
--- NOTE | 2021-09-12 07:53 | DI.MAMMO_ITS ---
Exam(s) MAMMO SCREENING EXAM: MAMMO SCREENING CLINICAL HISTORY: SCREENING MAMMO Z12.39 TECHNIQUE: Bilateral full field digital CC and MLO mammographic images were obtained with 3D tomosyn thesis and utilizing computer aided detection (CAD). COMPARISON: Available for comparison. FINDINGS: Masses/Architectural Distortion: There is a focal asymmetric density in the outer right breast on the CC view. Microcalcifications: No suspicious pleomorphic-type are seen. Skin Thickening/Nipple Retraction: None. IMPRESSION: 1. Focal asymmetric density in the outer right breast on the CC view. 2. This area should be further evaluated with a spot compression view. Ultrasound may be indicated a t that time. BI-RADS Category 0 - Assessment Incomplete: Need additional imaging evaluation Breast Density - Category C - Heterogeneously dense Breast density category C or D implies that the patient has dense breast tissue. Dense breast tissue is very common and is not abnormal but dense breast tissue can make it harder to find cancer on a ma mmogram. Also, dense breast tissue may increase their breast cancer risk. This information about the result of the mammogram report was provided to the patient to raise their awareness. Use this report when you speak with the patient about their risks for breast cancer, which includes their family hist ory. At that time, you may recommend for more screening tests (Ultrasound or MRI) as they might be us eful based on their risk. A negative radiographic report should not delay biopsy if a dominant or clinically suspicious mass is present. Up to ten percent of cancers are not identified on mammography. A negative report may reinforce clinical impression. Adenosis and dense breasts may obscure an underlying neoplasm. False positive reports average 6 to 10%. Patient will receive a letter notifying them of these results.
== END ==
PROVIDERS: PCP Nurse Practitioner Family; Visit Provider Nurse Practitioner Family
DX: Z12.31 Encounter for screening mammogram for malignant neoplasm of breast (principal); R92.8 Other abnormal and inconclusive findings on diagnostic imaging of breast
CPT/HCPCS: 77063; 77067

== ENCOUNTER 2021-09-17 10:22 | Outpatient (CLI) | payer OTHER, SELFPAY ==
--- NOTE | 2021-09-17 06:00 | DI.RAD_ITS ---
Exam(s) XR PAIN CLINIC LUMBAR SP 2V EXAM: XR PAIN CLINIC LUMBAR SP 2V CLINICAL HISTORY: Dx: Lumbar Radiculopathy. TECHNIQUE: Fluoroscopy was provided for the referring physician for guidance with performing pain cl inic injection procedure. COMPARISON: No exams were available for comparison FINDINGS: Please see procedure note for details. Fluoro time: 34.5 seconds RADIATION DOSE DELIVERED: Ka,r=10.21 mGy
[2021-09-17 10:30] VITALS: BP 111/67; PULSE 82; RESP 18; TEMP 36.4; O2SAT 100
--- NOTE | 2021-09-17 10:59 | PDOC.PAIN ---
Pain Clinic Procedure Note Procedure Note Procedure Note: Lumbar Epidural Steroid Injection Procedure Note COMMENTS: She was previously evaluated in our clinic. Her pain is radiating to her right leg. She states that her right leg is becoming numb in the same distribution of the pain. There has been a protracted time since her office visit as there was some difficulty getting her procedure authorized. Her pre-procedure pain VAS was 10/10. Dx: Lumbosacral radiculopathy Polina Montero has been referred to the [facility] for lumbar epidural steroid injection. The patient was greeted by the nurse who verified patients name and . Patient was then taken to the fluoroscopy suite. The patient was interviewed and the medial record reviewed. There were no medical, pharmacologic, radiographic, or other structural contraindications to attempting fluoroscopically guided lumbar epidural steroid injection. Risks and expected side effects as well as potential benefits of the procedure were reviewed and voiced concerns expressed. The patient consent form was signed and witnessed. Standard patient time-out procedure was performed. The patient was placed in the prone position on the fluoroscopy table and automated blood pressure cuff and pulse oximeter applied. The skin entry point for entering/approaching the epidural space at L5-S1 and marked. Following thorough chlorhexadine preparation of the skin and draping and 1% lidocaine infiltration of the skin entry point and subcutaneous tissues, a 18 gauge 3.5 Touhy needle was placed under fluoroscopic guidance and with loss of resistance technique into the epidural space. Needle tip placement and depth were aided and confirmed by fluoroscopy. There was no paresthesia or return of blood or CSF through the needle. 1 cc's of Omnipaque 240 was injected with clear epidural spread confirmed with fluoroscopy. 60mg depomedrol was injected followed by 2 cc of 1% Lidocaine and the needle was removed. There was not any unusual discomfort expressed by Polina Montero. Patient's vital signs were stable throughout the procedure and were as recorded in nursing records. Follow up plans and appointments were discussed with patient. Post procedure instruction was given as documented in nursing records and having met discharge criteria and was discharged from the [facility]. COMMENTS: If this procedure is helpful, it can be completed up to 3 times per 12 months. Post-procedure pain VAS 0/10. Elgin Tello DO, MPH [facility]-Pain Management [facility]
[2021-09-17 11:01] VITALS: BP 106/69; PULSE 82; RESP 22; O2SAT 100
[2021-09-17] MEDS: methylPREDNISolone ACETATE 80 MG/ML VIAL IJ (11:03)
[2021-09-17] MEDS: Omnipaque 240 MG/ML 50 ML BTL IJ (11:03)
== END 2021-09-17 10:23 | disposition home or self-care (01) ==
LOC: PC 10:22
PROVIDERS: PCP Nurse Practitioner Family; Visit Provider Preventive Medicine Occupational Medicine
DX: M54.17 Radiculopathy, lumbosacral region (principal)
CPT/HCPCS: 62323; 72100; J1040; Q9967

== ENCOUNTER → 2021-09-18 01:54 | Outpatient (CLI) | payer OTHER, SELFPAY ==
--- NOTE | 2021-09-18 14:18 | DI.MAMMO_ITS ---
Exam(s) MAMMO SCREEN CALL BACK UNI EXAM: MAMMO SCREEN CALL BACK UNI CLINICAL HISTORY: F/U ABNL MAMMO, FOCAL ASYMMETRIC DENSITY IN OUTER RT BREAST CC VIEW TECHNIQUE: Spot compression CC view with tomographic imaging were performed of the right breast. COMPARISON: 12 September 2021 and exams back to 2013. FINDINGS: No suspicious masses or suspicious microcalcifications are seen. No persistent abnormality is seen on the additional views performed. The findings are consistent wit h overlying fibroglandular tissue. There has been no significant change from prior exams. IMPRESSION: BI-RADS Category 1, Negative Yearly screening mammography is recommended. Breast Density - Category B, scattered fibroglandular densities.
== END ==
PROVIDERS: PCP Nurse Practitioner Family; Visit Provider Nurse Practitioner Family
DX: Z12.31 Encounter for screening mammogram for malignant neoplasm of breast (principal); R92.8 Other abnormal and inconclusive findings on diagnostic imaging of breast; N64.59 Other signs and symptoms in breast
CPT/HCPCS: 77063; 77067

== ENCOUNTER → 2021-10-27 01:24 | Outpatient (CLI) | payer OTHER, SELFPAY ==
--- NOTE | 2021-10-27 | DI.MRI_ITS ---
Exam(s) MR LUMBAR SPINE WO EXAM: MR LUMBAR SPINE WO CLINICAL HISTORY: RT LEG PAIN, M79.804, BACK PAIN, M54.9. TECHNIQUE: Multiplanar multisequence MRI of the Lumbar spine was performed. COMPARISON: MR MR lumbar spine wo from 03/10/2018 FINDINGS: There are no plain films available time this MRI interpretation. There appears to be probable transi tional anatomy here. Disc space numbering will be so that it equals the numbering which was used on the interpretation of 03/10/2018. Conus medullaris is at normal level. There is no evidence of conus mass nor subjacent clumping of in trathecal nerve roots to suggest arachnoiditis. The distal thecal sac appears unremarkable.There is no evidence of Tarlov intrasacral cysts nor other significant findings within the sacral canal Bones:There are no fractures nor ominous osseous lesions in the lumbar vertebral bodies and visualize d sacrum. With respect to the individual levels... T12-L1: Unremarkable L1-2: This level again exhibits a central subligamentous disc herniation which extends posteriorly 2 millimeters and is approximately 1 cm wide. This is again noted to indent the anterior aspect of the thecal sac. It exhibits minimal change from the prior study. Central canal dimensions are otherwis e lower normal. There is no foraminal stenosis at this level. No facet arthropathy. L2-3: Normal disc height. No disc herniation nor central canal stenosis.No foraminal stenosis.No face t arthropathy. L3-4: Normal disc height. No disc herniation or central canal stenosis.No foraminal stenosis.No face t arthropathy. L4-5: Mild decreased disc height on the left side of the disc space. Preserved disc height on the ri ght side. There is mild anterolisthesis of L4 upon L5 again noted, approximately 2 millimeters. Bro ad annular bulging without a disc herniation. However, there is moderate central spinal canal stenos is at this level again noted. This is due to the broad annular bulging, short AP dimensions of the p edicles, listhesis, and facet arthropathy bilaterally, similar to the previous study. There is no pr ominent foraminal stenosis at this level. L5-S1: Preserved disc height. However, there is again noted a focal central subligamentous disc rosa iation, similar to previous. Mild-moderate central canal stenosis at this level again noted, unchang ed. No foraminal stenosis evident. No significant facet arthropathy. Transitional level disc (1 level below L5-S1) continues to exhibit normal disc height and signal. No disc herniation or canal stenosis nor foraminal stenosis at this level. Soft tissues: Multiple renal cysts consistent with adult polycystic kidney disease IMPRESSION: 1. Findings as described individually above with findings at L4-5 and L5-S1 levels as described above but without significant change compared to the prior MRI scan of 03/10/2018. 2. There is an element of central canal stenosis at L4-5 and L5-S1 levels (mild-moderate). At L4-5 l evel this is again noted to be associated with mild degenerative anterolisthesis of L4 upon L5. The amount of listhesis has not increased from the prior 2019 study. 3. Incidentally noted is adult polycystic kidney disease, previously documented. DATA REPOSITORY:
== END ==
PROVIDERS: PCP Nurse Practitioner Family; Visit Provider Physician Assistant Medical
DX: M79.604 Pain in right leg (principal); M54.59 Other low back pain; M43.16 Spondylolisthesis, lumbar region; M51.26 Other intervertebral disc displacement, lumbar region; M51.27 Other intervertebral disc displacement, lumbosacral region; M48.07 Spinal stenosis, lumbosacral region
CPT/HCPCS: 72148

== ENCOUNTER 2021-12-02 11:38 | Outpatient (REF) | payer OTHER, SELFPAY ==
[2021-12-02 15:22] LABS: HCT 37.7 % (36.0-46.0); MCH 27.8 pg (27.0-33.0); MCHC 31.8 % (32.0-36.0); MCV 87 fL (80-95); MPV 9.1 fL (8.0-11.0); Platelet Count 215 10^3/uL (130-400); RBC 4.32 10^6/uL (3.93-5.22); RDW 13.1 % (11.7-14.6); WBC 5.45 10^3/uL (4.4-10.8)
[2021-12-02 15:58] LABS: ALT 33 U/L (14-59); AST 21 U/L (15-37); Albumin 3.9 g/dL (3.4-5.0); Alkaline Phosphatase 40 U/L (46-116); BUN 21 mg/dL (7-18); Bilirubin, Total 0.4 mg/dL (0.2-1.0); CREATININE 0.8 mg/dL (0.55-1.02); Calcium 9.1 mg/dL (8.5-10.1); Chloride 102 mmol/L (98-107); Estimated GFR 84.82 (mL/min/1.73m2); Glucose 273 mg/dL (74-106); Magnesium 1.5 mg/dL (1.8-2.4); Potassium 4.5 mmol/L (3.5-5.1); Sodium 138 mmol/L (136-145); TSH 0.63 uIU/mL (0.36-3.74)
== END 2021-12-02 11:39 | disposition home or self-care (01) ==
LOC: NCHCN 11:38
PROVIDERS: PCP Nurse Practitioner Family; Visit Provider Nurse Practitioner Family
DX: E11.9 Type 2 diabetes mellitus without complications (principal); R07.9 Chest pain, unspecified; M79.604 Pain in right leg
CPT/HCPCS: 80053; 85027; 83735; 84439; 84443

== ENCOUNTER → 2021-12-09 01:07 | Outpatient (CLI) | payer OTHER, SELFPAY ==
--- NOTE | 2021-12-09 | DI.RAD_ITS ---
Exam(s) XR CHEST 2V PA LATERAL EXAM: XR CHEST 2V PA LATERAL CLINICAL HISTORY: CHEST PAIN, R07.9. TECHNIQUE: 2D digital imaging was performed. COMPARISON: CR CHEST 2 VIEWS PA,LAT from 08/13/2014 FINDINGS: 2 views: Heart size is normal. The mediastinum is not widened. Lungs are clear. No infiltrates nor pleural effusions. Mild scoliosis convex right. IMPRESSION: No acute pulmonary findings. DATA REPOSITORY: RADIATION DOSE DELIVERED:
--- NOTE | 2021-12-09 08:00 | ETT_ITS ---
APPROVED REPORT Exam: Exercise Treadmill Patient Location: Out-Patient Room/Bed: Stress Nurse: Ella Mane RN Ordering Provider:SERGIO PICKERING, Contact Number: [phone] BMI: 29.26 Baseline Rhythm: Sinus Rhythm Comment: T wave inversion in lead aVL Indications: CHEST PAIN; STRONG FAMILY H/O HEART DISEASE, + DM, + HTN Medical History Medical History: Restrictive lung disease, MIGUEL, HLD, Heart murmur, HTN, DM, Asthma Cardiac Medications: Simvastatin, Omeprazole, Metformin, Lisinopril, Insulin detemir, Fluticasone pro pionate, Budenoside-formoterol, Albuterol sulfate, Allergies: Ibuprofen Cardiac Risk Factors: FHX of CAD, HTN, Hyperlipidemia, DM, Asthma, COPD Previous Cardiac Procedures: None Pretest Chest Pain Characteristics: Non-exertional Chest pain Exercise History: Physically active Physical Disabilities: None Lung Sounds: Clear to auscultation Heart Sounds: Regular Stress Test Details Test: Exercise stress testing was performed using a Tom protocol. Rest Stress HR Resting HR Supine: 72 bpm Max Heart Rate (APMHR): 161 bpm Resting HR Standin bpm Target HR (85% APMHR): 136 bpm Max HR Achieved: 140 bpm % of APMHR: 86 Recovery HR: 94 bpm HR response to stress: Normal HR response to stress BP Resting BP Supine: 122/74 mmHg Resting BP Standin/70 mmHg Max BP: 180/58 mmHg Recovery BP: 138/66 mmHg BP response to stress: Normal blood pressure response to stress. ECG Resting ECG: Sinus Rhythm Ectopy: None Comment: inverted T wave in lead aVL Stress ECG: Sinus Tachycardia ST Change: No significant ST segment changes noted Arrhythmia: None Recovery ECG: Sinus Rhythm Recovery ST Change: No significant ST segment changes noted Recovery Arrhythmia: None Clinical Reason for Termination: Dyspnea Stress Symptoms: Dyspnea Exercise duration: 09 min18 sec Highest Stage Reached: Stage 4: 4.2 mph at 16% grade. Exercise capacity: 10.64 METs Molina Treadmill Score: 5 Rate Pressure Product: [id number] Stress ECG Conclusion 1. The resting electrocardiogram was within normal limits 2. Patient exercised on the Tom protocol and completed a workload of 10.64 METS, stopping due to sh ortness of breath 3. Normal heart rate and blood pressure response to exercise. Patient achieved 86% of predicted hear t rate for age 4. There was no electrocardiographic evidence of myocardial ischemia 5. There were no significant dysrhythmias Molina Treadmill Score is 5 which is Low risk. Stress Test Summary STAGE Time (mins) Speed (mph) Grade (%) HR BP SpO2 SYMPTOMS METS Supine 72 122/74 Standing 75 120/70 97 1 3 1.7 10 103 128/64 4.5 2 6 2.5 12 113 138/64 96 7 3 9 3.4 14 136 168/64 98 10 1 min recovery 129 180/58 98 3 min recovery 106 168/58 6 min recovery 94 138/66 Patient endorses sternal chest pain that she has had all morning, not related to exertion. Pain does not radiate, patient cannot describe pain but states its moderate, like a 7. No other symptoms no rachna or reported. Chest discomfort present throughout exercise period, then resolved in recovery.
== END ==
PROVIDERS: PCP Nurse Practitioner Family; Visit Provider Nurse Practitioner Family
DX: R07.9 Chest pain, unspecified (principal); I10 Essential (primary) hypertension; E11.9 Type 2 diabetes mellitus without complications; Z82.49 Family history of ischemic heart disease and other diseases of the circulatory system
CPT/HCPCS: 71046; 93017

== ENCOUNTER → 2021-12-11 02:52 | Outpatient (CLI) | payer OTHER, SELFPAY ==
--- NOTE | 2021-12-11 13:56 | DI.RAD_ITS ---
Exam(s) XR HIP RT COMPLETE AP PELVIS EXAM: XR HIP RT COMPLETE AP PELVIS CLINICAL HISTORY: RT HIP PAIN, M25.551. TECHNIQUE: 2D digital imaging was performed of the right hip. Two images were obtained. AP pelvis a nd lateral right hip views were obtained. COMPARISON: CR XR lumbar spine complete from 02/28/2018 FINDINGS: BONES: No acute fracture is present. No bony destructive lesion is seen. JOINTS: No dislocation present. There are degenerative changes seen in the lower lumbar spine. SOFT TISSUE: Normal. IMPRESSION: Unremarkable radiographs of the right hip. Unremarkable radiographs of the pelvis. DATA REPOSITORY: RADIATION DOSE DELIVERED:
== END ==
PROVIDERS: PCP Nurse Practitioner Family; Visit Provider Nurse Practitioner Family
DX: M25.551 Pain in right hip (principal)
CPT/HCPCS: 73502

== ENCOUNTER 2022-05-20 14:54 | Outpatient (REF) | payer OTHER, SELFPAY ==
[2022-05-20 16:04] LABS: Anion Gap 9.6 mmol/L (3-11); BUN 10 mg/dL (7-18); CO2 27.4 mmol/L (21.0-32.0); CREATININE 0.8 mg/dL (0.55-1.02); Calcium 9.6 mg/dL (8.5-10.1); Chloride 101 mmol/L (98-107); Estimated GFR 84.82 (mL/min/1.73m2); Glucose 117 mg/dL (74-106); Potassium 3.9 mmol/L (3.5-5.1); Sodium 138 mmol/L (136-145)
[2022-05-20 16:06] LABS: Hemoglobin A1C 7.7 % (<5.7)
== END 2022-05-20 14:55 | disposition home or self-care (01) ==
LOC: NCHCN 14:54
PROVIDERS: PCP Nurse Practitioner Family; Visit Provider Nurse Practitioner Family
DX: I10 Essential (primary) hypertension (principal); E11.9 Type 2 diabetes mellitus without complications
CPT/HCPCS: 80048; 83036

== ENCOUNTER 2022-06-29 11:58 | Outpatient (REF) | payer OTHER, SELFPAY ==
[2022-06-29 17:23] LABS: Hemoglobin A1C 7.8 % (<5.7)
[2022-06-29 17:52] LABS: ALT 78 U/L (14-59); AST 43 U/L (15-37); HDL Cholesterol 54 mg/dL (40-60); LDL CHOLESTEROL 76 mg/dL (<100)
[2022-06-29 18:02] LABS: Creatine Kinase 131 U/L (26-192)
== END 2022-06-29 11:59 | disposition home or self-care (01) ==
LOC: NCHCN 11:58
PROVIDERS: PCP Nurse Practitioner Family; Visit Provider Nurse Practitioner Family
DX: I10 Essential (primary) hypertension (principal); E11.9 Type 2 diabetes mellitus without complications; E78.5 Hyperlipidemia, unspecified
CPT/HCPCS: 82550; 83721; 83036; 83718; 84450; 84460

== ENCOUNTER 2022-08-19 10:40 | Outpatient (CLI) | payer OTHER, SELFPAY ==
--- NOTE | 2022-08-19 07:00 | DI.RAD_ITS ---
Exam(s) XR PAIN CLINIC CERVICAL SP 2V EXAM: XR PAIN CLINIC CERVICAL SP 2V CLINICAL HISTORY: Dx: Cervical Radiculopathy. TECHNIQUE: Fluoroscopy was provided for the referring physician for guidance with performing pain cl inic injection procedure. COMPARISON: No exams were available for comparison FINDINGS: Please see procedure note for details. Fluoro time: 22.3 seconds RADIATION DOSE DELIVERED: Ka,r=2.88 mGy
[2022-08-19 11:04] VITALS: BP 111/68; PULSE 81; RESP 20; TEMP 36.6; O2SAT 98
[2022-08-19] MEDS: Dexamethasone Sod. Phos./Pres-Free 10 MG/ML VIAL IJ (11:41)
--- NOTE | 2022-08-19 11:53 | PDOC.PAIN ---
Date of service: 08/19/22 Time of Service: 11:56 Pain Managment Procedure Note Procedure Note Procedure Note: Procedure Note Cervical Interlaminar Epidural Steroid Injection Date of Service: August 19, 2022 Patient:Polina Piña? Provider:? Gabi Tello DO, MPH Polina has been referred to the [facility] for cervical epidural steroid injection.? Pre-operative diagnosis: Cervical Radiculopathy Post-operative diagnosis: Same Pre-procedure pain: VAS= 7/10 Comments: She had her last TINA on 04/09/20 and had >18 months of >50% pain relief. The pain has now returned. I did re-review her 07/24/2019 C-MRI. I evaluated her on 04/29/22 and her symptoms have not changed. Polina was interviewed and the medical record was reviewed.? There were no medical, pharmacologic, radiographic or other structural contraindications to attempting fluoroscopically guided cervical interlaminar epidural steroid injection.? Risks, potential side effects, indications, and potential benefits of the procedure were reviewed with Polina.? Questions and concerns were addressed.? After it was clear that the patient was fully informed about the procedure, the printed consent form was signed by the patient and myself.? Polina was placed in the prone position on the fluoroscopy table and automated blood pressure cuff as well as pulse oximeter was applied. A standard time-out procedure was performed. The skin entry point for entering the epidural space by a midline C7-T1 interlaminar approach was identified under fluoroscopy and marked.? The skin entry point was thoroughly cleaned with Chlorhexadine preparation and the skin was draped.? Next a mixture of 2 mls of 1% lidocaine was infiltrated into the area of the planned skin entry point and underlying subcutaneous tissues.? Next an 18 gauge Tuohy needle was placed under fluoroscopic guidance and with loss of resistance technique into the epidural space utilizing multiple AP and 55 degree contralateral fluoroscopic views.? Upon correct needle placement and loss of resistance, there were no paresthesia or return of blood or CSF through the needle. Next 1 mls of preservative-free Omnipaque 240 was injected with clear epidural spread in the A/P and oblique views. Next, a solution of 15 mg of preservative-free Dexamethasone was injected. This was followed with 1ml of preservative-free normal saline. No unusual discomfort was expressed by Polina. The needle was withdrawn without difficulty. (49 mls of Omnipaque and 5 mg of Dexamethasone was wasted) Polina was observed and was without hemodynamic, neurologic, or allergic reactions.? Fluoroscopic images were digitally archived. Polina's vital signs were stable throughout the procedure and were as recorded in the doc flowsheet by the nursing staff.? If given, dosages of intravenous drugs for anxiolysis and analgesia were documented in MAR. Follow up plans and appointments were discussed with Polina.? Post procedure instruction was given as documented in nursing documentation and having met discharge criteria, [facility] the [facility]. A retrospective review of interlaminar cervical ESIs found that approximately two-thirds of patients with symptomatic cervical radiculopathy from disc herniation were able to avoid surgery for up to 1 year with treatment. Success rate was improved with earlier injection (< 100 days from diagnosis). Kellie EL, Basilia V, Ton L, Marco AN, Sree JADA. Cervical epidural steroid injections for symptomatic disc herniations. J Spinal Disord Tech. 2006 June;19(3):183-6. ? COMMENTS: No apparent complications. Post-procedure pain: VAS= 0/10. Polina to contact [facility] as needed. If at least 50% improvement in pain and/or function for at least 3 months is achieved, this procedure can be repeated. I personally completed the entire procedure. GABI TELLO DO, MPH ABPMR-subspecialty board certification in Pain Medicine [facility]
[2022-08-19 11:56] VITALS: BP 136/83; PULSE 71; RESP 21; O2SAT 100
[2022-08-19] MEDS: Omnipaque 240 MG/ML 50 ML BTL IJ (13:46)
== END 2022-08-19 10:41 | disposition home or self-care (01) ==
LOC: PC 10:41
PROVIDERS: PCP Nurse Practitioner Family; Visit Provider Preventive Medicine Occupational Medicine
DX: M54.12 Radiculopathy, cervical region (principal)
CPT/HCPCS: 62321; 72040; Q9967

== ENCOUNTER 2023-03-01 13:44 | Outpatient (REF) | payer OTHER, SELFPAY ==
[2023-03-01 16:02] LABS: FREE T4 1.33 ng/dL (0.76-1.46); TSH 1.05 uIU/mL (0.36-3.74)
== END 2023-03-01 13:45 | disposition home or self-care (01) ==
LOC: NCHCN 13:44
PROVIDERS: PCP Nurse Practitioner Family; Visit Provider Nurse Practitioner Family
DX: E03.9 Hypothyroidism, unspecified (principal)
CPT/HCPCS: 84439; 84443

== ENCOUNTER 2023-03-11 11:49 | Outpatient (CLI) | payer OTHER, SELFPAY ==
[2023-03-11 13:00] VITALS: BP 109/69; PULSE 88; RESP 20; TEMP 36.8; O2SAT 96
--- NOTE | 2023-03-11 13:19 | PDOC.PAIN ---
Date of service: 03/11/23 Time of Service: 13:20 Pain Managment Procedure Note Procedure Note Procedure Note: PROCEDURE NOTE LUMBAR EPIDURAL STEROID INJECTION Date of Service: March 11, 2023 Patient:Polina Buck? Provider: Elgin Tello DO, MPH Polina Montero has been referred to the [facility] for a lumbar epidural steroid injection. Pre-operative diagnosis: Lumbosacral Radiculopathy Post-operative diagnosis: Same Pre-Procedure Pain: VAS= 10/10 Comments: She has had this procedure multiple times. Her last procedure gave her >4 months of >50% pain improvement. It also allowed her to continue working. She is a diabetic with a Hem A1c of 8.3 on 03/01/23. For this reason we are giving her half the normal amount of steroids. Polina was interviewed and the medical record was reviewed.? There were no medical, pharmacologic, radiographic or other structural contraindications to attempting fluoroscopically guided Lumbar epidural steroid injection.? Risks, potential side effects, indications, and potential benefits of the procedure were reviewed with Polina.? Questions and concerns were addressed.? After it was clear that Polina was fully informed about the procedure, the printed consent form was signed by the patient and myself.? Polina was placed in the prone position on the fluoroscopy table and automated blood pressure cuff and pulse oximeter applied. The skin entry point for entering/approaching the epidural space for the lumbar epidural steroid injection was marked. Following thorough chlorhexadine preparation of the skin and draping and 1% lidocaine infiltration of the skin entry point and subcutaneous tissues, an 18 gauge Touhy needle was placed and advanced under fluoroscopic guidance and with loss of resistance technique into the L5-S1 epidural space. Needle tip placement and depth were aided and confirmed by fluoroscopy. There was no paresthesia or return of blood or CSF through the needle. 1 mls of Omnipaque 240 was injected with clear epidural spread confirmed with fluoroscopy. 40 mg of Depo-Medrol was? injected. This was followed by 1 ml of preservative-free normal saline to flush the steroid out of the needle. There was no unusual discomfort expressed by Polina. The needle was withdrawn without difficulty. (49 mls of Omnipaque was wasted) Polina was observed and was without hemodynamic, neurologic, or allergic reactions.? Fluoroscopic images were digitally archived. Polina's vital signs were stable throughout the procedure and were as recorded in nursing records. Follow up plans and appointments were discussed with Polina. Post procedure instruction was given as documented in nursing records and having met discharge criteria Polina was discharged from the [facility]. COMMENTS: No apparent complications. Post-procedure pain: VAS= 0/10. Polina to contact [facility] as needed. If at least 50% improvement in pain and/or function for at least 3 months is achieved, this procedure can be repeated. I personally performed this entire procedure. ELGIN TELLO DO, MPH ABPMR-subspecialty board certification in Pain Medicine [facility]
--- NOTE | 2023-03-11 13:23 | DI.RAD_ITS ---
Exam(s) XR PAIN CLINIC LUMBAR SP 2V EXAM: XR PAIN CLINIC LUMBAR SP 2V CLINICAL HISTORY: DX: Lumbar Radiculopathy. TECHNIQUE: Fluoroscopy was provided for the referring physician for guidance with performing pain cl inic injection procedure. COMPARISON: No exams were available for comparison FINDINGS: Please see procedure note for details. Fluoro time: 15.1 seconds RADIATION DOSE DELIVERED: Ka,r=4.57 mGy
[2023-03-11] MEDS: Omnipaque 240 MG/ML 50 ML BTL IJ (13:24)
[2023-03-11] MEDS: methylPREDNISolone ACETATE 40 MG/ML VIAL IJ (13:25)
[2023-03-11] MEDS: Epidural Tray 1 EACH MC (13:26)
[2023-03-11 13:27] VITALS: BP 121/70; PULSE 83; RESP 20; O2SAT 100
== END 2023-03-11 11:50 | disposition home or self-care (01) ==
LOC: PC 11:49
PROVIDERS: PCP Nurse Practitioner Family; Visit Provider Preventive Medicine Occupational Medicine
DX: M54.17 Radiculopathy, lumbosacral region (principal)
CPT/HCPCS: 00123; 62323; 72100; J1030; Q9967

== ENCOUNTER 2023-04-12 09:47 | Outpatient (REF) | payer OTHER, SELFPAY | END 2023-04-12 09:48 | disposition home or self-care (01) | LOC: NCHCN 09:47 | PROVIDERS: PCP Nurse Practitioner Family; Visit Provider Nurse Practitioner Family | DX: E11.9 Type 2 diabetes mellitus without complications (principal) | CPT/HCPCS: 83036 ==

== ENCOUNTER 2023-06-16 17:45 | Observation (INO) | payer OTHER, SELFPAY ==
[2023-06-16] VITALS (34 sets, daily range): BP systolic 103–141; BP diastolic 48–78; PULSE 71–89; RESP 13–26; TEMP 36.3–36.6; O2SAT 95–100
--- NOTE | 2023-06-16 17:45 | RT.EKG_ITS ---
APPROVED REPORT Exam: Resting ECG Reason for Exam: chest pain Patient Location: E HR:82 bpm ECG Measurements Heart Rate 82 AXIS NJ 191 P 24 QRSd 74 QRS -1 QT 362 T 52 QTc 424 Conclusion Sinus rhythm 82 normal axis no stemi
--- NOTE | 2023-06-16 18:00 | DI.RAD_ITS ---
Exam(s) XR PORTABLE CHEST AP EXAM: XR PORTABLE CHEST AP CLINICAL HISTORY: chest pain TECHNIQUE: 2D digital imaging was performed. COMPARISON: CR XR CHEST 2V PA LATERAL from 12/09/2021 FINDINGS: Exam limited by suboptimal inflation. LUNGS: Clear. No pleural abnormality seen. HEART: Normal size. AORTA: Normal diameter. BONES: Unremarkable for age. Soft tissues: Unremarkable. IMPRESSION: No acute findings. DATA REPOSITORY: RADIATION DOSE DELIVERED:
[2023-06-16] MEDS: nitroGLYcerin 0.4 MG TAB SL ×2 (18:11→18:28)
[2023-06-16 18:15] LABS: Abs Immature Grans 0.01 10^3/uL (0.0-0.06); Absolute Basophil Count 0.06 10^3/uL (0.0-0.2); Absolute Lymphocyte Count 4.17 10^3/uL (1.2-3.4); Absolute Monocyte Count 0.48 10^3/uL (0.1-0.8); Absolute Neutrophil Count 2.43 10^3/uL (1.2-6.7); Basophils % 0.8 %; Eosinophils % 2.7 %; HCT 37.2 % (36.0-46.0); HGB 11.8 g/dL (11.2-15.7); Immature Grans % 0.1 %; Lymphocytes % 56.7 %; MCH 27.8 pg (27.0-33.0); MCHC 31.7 % (32.0-36.0); MCV 88 fL (80-95); MPV 8.6 fL (8.0-11.0); Monocytes % 6.5 %; Neutrophils % 33.2 %; Platelet Count 199 10^3/uL (130-400); RBC 4.25 10^6/uL (3.93-5.22); RDW 13.1 % (11.7-14.6); RDW-SD 41.4 fL; WBC 7.35 10^3/uL (4.4-10.8)
[2023-06-16] MEDS: Aspirin 81 MG CHEW 324 MG CH (18:23)
--- NOTE | 2023-06-16 18:35 | NUR.NOTE ---
Nursing Note: pt reports pain greatly reduced after one nitro. Pain is completely relieved after second nitro. Pt notes her breathing feels better and there is no more pressure/pain.
[2023-06-16 18:42] LABS: ALT 36 U/L (14-59); AST 19 U/L (15-37); Albumin 3.8 g/dL (3.4-5.0); Alkaline Phosphatase 46 U/L (46-116); Anion Gap 7.7 mmol/L (3-11); BUN 12 mg/dL (7-18); Bilirubin, Total 0.3 mg/dL (0.2-1.0); CO2 28.3 mmol/L (21.0-32.0); CREATININE 0.9 mg/dL (0.55-1.02); Calcium 8.5 mg/dL (8.5-10.1); Chloride 101 mmol/L (98-107); Estimated GFR 73.19 (mL/min/1.73m2); Glucose 214 mg/dL (74-106); Magnesium 1.5 mg/dL (1.8-2.4); NT-proBNP 7 pg/mL (<300); Potassium 4.1 mmol/L (3.5-5.1); Sodium 137 mmol/L (136-145); Total Protein 7.3 g/dL (6.4-8.2); Troponin I < 50 ng/L (< or =60)
--- NOTE | 2023-06-16 18:45 | RT.EKG_ITS ---
APPROVED REPORT Exam: Resting ECG Reason for Exam: CHEST PAIN Patient Location: E HR:73 bpm ECG Measurements Heart Rate 73 AXIS PA 194 P 26 QRSd 72 QRS -8 QT 388 T 53 QTc 427 Conclusion Sinus rhythm. 73 normal axis no stemi
[2023-06-16] MEDS: Mylanta Suspension 30 ML CUP PO (19:12)
--- NOTE | 2023-06-16 20:25 | ED.GENADUL_ITS ---
Discharge Plan Discharge Details Chief Complaint: Chest Pain Primary Care Provider: Margoth Sommer ED Provider: Spencer Franco Home Meds and New Rx's Prescriptions: No Action (DME) blood-glucose meter [ReliOn Prime Meter] Misc MISCELLANEOUS (DME) ReliOn Prime Test Strips Strip MISCELLANEOUS (DME) lancets [ReliOn Ultra Thin Plus Lancets] Misc MISCELLANEOUS albuterol sulfate [ProAir HFA] 90 mcg/actuation Hfa Aerosol Inhaler 2 puff INHALATION Q6H PRN metformin 500 mg Tablet Extended Release 24 Hr 1,000 mg PO BID (DME) pen needle, diabetic [Pen Needle] 31 gauge x 3/16 Needle MISCELLANEOUS diclofenac sodium [Voltaren] 1 % Gel 2 g TOPICAL TID PRN budesonide-formoterol [Symbicort] 80-4.5 mcg/actuation HFA aerosol inhaler 2 puff inhalation BID Levemir FlexTouch U100 Insulin 100 unit/mL (3 mL) insulin pen 58 unit subcut QHS ascorbate calcium (vitamin C) 500 mg tablet 500 mg PO DAILY ciclopirox 0.77 % cream 1 applic topical BID PRN gabapentin 300 mg capsule 300 mg PO BID nitroglycerin 0.4 mg tablet, sublingual 0.4 mg sublingual Q5M PRN Rx Instructions: do not exceed 3 doses per episode magnesium oxide 250 mg magnesium tablet 250 mg PO BID Victoza 2-Foreign 0.6 mg/0.1 mL (18 mg/3 mL) pen injector 0.6 mg subcut DAILY fluticasone propionate [Flovent HFA] 110 mcg/actuation HFA aerosol inhaler 1 puff IH BID lisinopril 5 mg tablet 5 mg PO BID Patient Comments: TAKE 2 TABLETS BY MOUTH IN THE MORNING AND 1 AT BEDTIME DIRECTED colestipol 1 gram tablet 1 g PO ONCE Rx Instructions: take 1-2 tablets omeprazole 20 mg capsule,delayed release(DR/EC) 20 mg PO .at bedtime AEROCHAMBER 1 EACH spacer 1 ea Miscellaneous PRN Qty: 1 0RF (DME) OneTouch Ultra Test 1 EACH strip 1 strip Miscellaneous DAILY Qty: 100 Rx Instructions: DX:250.0 ONE TOUCH ULTRA MINI levothyroxine 88 MCG tablet 88 mcg PO DAILY Qty: 90 3RF fluticasone propionate [Flonase Allergy Relief] 50 mcg/actuation spray,suspension 1 spray NS DAILY Qty: 1 Patient Comments: Each Nostril simvastatin 40 mg tablet 40 mg PO DAILY Qty: 90 Rx Instructions: Take 1.5 tablets by mouth once a day allopurinol 100 mg Tablet 100 mg PO DAILY acetaminophen 500 mg tablet 500 mg PO Q6H PRN (Reason: pain) Qty: 60 2RF ondansetron HCl [Zofran] 4 mg tablet 4 mg PO Q8H Qty: 12 0RF HPI General Date/Time Provider Initiated Documentation: 06/16/23 18:00 . Limitations to Documentation: no limitations . Information obtained by: patient . HPI Narrative: 70-year-old female with past medical history of diabetes, hypertension, lung disease presents for evaluation of chest pain. She reports acute onset of substernal chest pain. Associated with nausea, no diaphoresis, is experiencing shortness of breath. Reports that the symptoms started this morning, while she was at home. Not exertional. They been present all day and progressively wor sening. She denies smoking. She reports that both her father and brother of sudden cardiac at young ages. She denies prior cardiac evaluation. She denies prior chest pain. Like this before. Related Data Home Medications Medication Instructions Recorded Confirmed blood sugar diagnostic (CEGA InnovationsTouch #100 strips 08/20/14 12/23/22 Ultra Test strips) levothyroxine 88 mcg tablet 88 mcg PO DAILY #90 tab-caps 01/21/17 03/11/23 fluticasone propionate 110 1 puff inhalation BID 03/24/18 03/11/23 mcg/actuation HFA aerosol inhaler (Flovent HFA) fluticasone propionate 50 1 spray NS DAILY #1 g 03/24/18 03/11/23 mcg/actuation nasal spray,suspension (Flonase Allergy Relief) allopurinol 100 mg tablet 100 mg PO DAILY 12/06/18 03/11/23 albuterol sulfate 90 mcg/actuation 2 puff inhalation Q6H PRN 07/18/19 03/11/23 aerosol inhaler (ProAir HFA) blood sugar diagnostic (ReliOn 07/18/19 12/23/22 Prime Test Strips) blood-glucose meter (ReliOn Prime 07/18/19 12/23/22 Meter) lancets (ReliOn Ultra Thin Plus 07/18/19 12/23/22 Lancets) metformin 500 mg tablet,extended 1,000 mg PO BID 07/18/19 03/11/23 release 24 hr pen needle, diabetic 31 gauge x 07/18/19 12/23/22 3/16 (Pen Needle) diclofenac sodium 1 % topical gel 2 g topical TID PRN 03/01/20 03/11/23 (Voltaren) budesonide-formoterol HFA 80 2 puff inhalation BID 03/11/20 03/11/23 mcg-4.5 mcg/actuation aerosol inhaler (Symbicort) ascorbate calcium (vitamin C) 500 500 mg PO DAILY 06/17/20 03/11/23 mg tablet insulin detemir U-100 100 unit/mL 58 unit subcut QHS 06/17/20 03/11/23 (3 mL) subcutaneous pen (Levemir FlexTouch U-100 Insulin) acetaminophen 500 mg tablet 500 mg PO Q6H PRN pain #60 tabs 02/05/21 03/11/23 ondansetron HCl 4 mg tablet 4 mg PO Q8H #12 tabs 07/01/21 03/11/23 (Zofran) ciclopirox 0.77 % topical cream 1 applic topical BID PRN 04/28/22 03/11/23 gabapentin 300 mg capsule 300 mg PO BID 04/28/22 03/11/23 magnesium oxide 250 mg PO BID 04/28/22 03/11/23 nitroglycerin 0.4 mg sublingual 0.4 mg sublingual Q5M PRN 04/28/22 03/11/23 tablet liraglutide 0.6 mg/0.1 mL (18 mg/3 0.6 mg subcut DAILY 04/29/22 03/11/23 mL) subcutaneous pen injector (Wolongeza 2-Foreign) colestipol 1 gram tablet 1 g PO ONCE 12/03/22 03/11/23 lisinopril 5 mg tablet 5 mg PO BID 12/03/22 03/11/23 omeprazole 20 mg capsule,delayed 20 mg PO .at bedtime 12/03/22 03/11/23 release simvastatin 40 mg tablet 40 mg PO DAILY #90 tab-caps 12/03/22 03/11/23 Previous Rx's Medication Instructions Recorded levothyroxine 88 mcg tablet 88 mcg PO DAILY #90 tab-caps 01/21/17 acetaminophen 500 mg tablet 500 mg PO Q6H PRN pain #60 tabs 02/05/21 ondansetron HCl 4 mg tablet 4 mg PO Q8H #12 tabs 07/01/21 (Zofran) Allergies Allergy/AdvReac Type Severity Reaction Status Date / Time ibuprofen AdvReac Mild Other (See Verified 06/16/23 17:54 Comment) General Stated Complaint: Chest Pain PARDEEP: 3 Exam Narrative Exam Narrative: Review of Systems: All systems reviewed & are unremarkable except as noted in HPI and below Well-developed, no acute distress NCAT PERRL, normal conjunctiva RRR, no murmur Unlabored respiratory effort, clear bilaterally Nondistended abdomen , nontender Extremities w/o deformity, no cyanosis, no edema No rashes or lesions. no focal neurologic deficits Appropriate mood and affect Course Vital Signs Vital signs: Vital Signs Temperature 36.3 C L 06/16/23 17:48 Pulse 81 06/16/23 17:48 Respiratory Rate 18 06/16/23 17:48 Blood Pressure 141/72 H 06/16/23 17:48 Pulse Oximetry 99 06/16/23 17:48 Temperature 36.3 C L 06/16/23 17:48 Temperature Source Skin 06/16/23 17:48 Pulse 75 06/16/23 19:46 Pulse 77 06/16/23 19:50 Respiratory Rate 17 06/16/23 19:50 Respiratory Effort Normal 06/16/23 17:55 Respiratory Depth Normal 06/16/23 17:55 Respiratory Pattern Normal 06/16/23 17:55 Blood Pressure 113/60 06/16/23 19:46 Blood Pressure Mean 75 06/16/23 19:46 Blood Pressure Position Sitting 06/16/23 17:48 Pulse Oximetry 100 06/16/23 19:50 Oxygen Delivery Method Room Air 06/16/23 18:30 Oxygen Flow Rate 0 06/16/23 18:30 Pain Level 3 06/16/23 18:28 Comment pressure improved with one nitro 06/16/23 18:10 Lab/Test Results Lab/Test Results: Laboratory Tests Range/Units 06/16/23 18:05 WBC (4.4-10.8) 10^3/uL 7.35 RBC (3.93-5.22) 10^6/uL 4.25 Hgb (11.2-15.7) g/dL 11.8 Hct (36.0-46.0) % 37.2 MCV (80-95) fL 88 MCH (27.0-33.0) pg 27.8 MCHC (32.0-36.0) % 31.7 L RDW (11.7-14.6) % 13.1 Plt Count (130-400) 10^3/uL 199 MPV (8.0-11.0) fL 8.6 Immature Gran % % 0.1 Neutrophils % % 33.2 Lymphocytes % % 56.7 Monocytes % % 6.5 Eosinophils % % 2.7 Basophils % % 0.8 Nucleated RBC % (0.0-0.3) % 0.0 Absolute Neutrophils (1.2-6.7) 10^3/uL 2.43 Absolute Lymphocytes (1.2-3.4) 10^3/uL 4.17 H Absolute Monocytes (0.1-0.8) 10^3/uL 0.48 Absolute Eosinophils (0.0-0.7) 10^3/uL 0.20 Absolute Basophils (0.0-0.2) 10^3/uL 0.06 Sodium (136-145) mmol/L 137 Potassium (3.5-5.1) mmol/L 4.1 Chloride (98-107) mmol/L 101 Carbon Dioxide (21.0-32.0) mmol/L 28.3 Anion Gap (3-11) mmol/L 7.7 BUN (7-18) mg/dL 12 Creatinine (0.55-1.02) mg/dL 0.9 Est GFR (CKD-EPI 2020) (mL/min/1.73m2) 73.19 Glucose (74-106) mg/dL 214 H Calcium (8.5-10.1) mg/dL 8.5 Magnesium (1.8-2.4) mg/dL 1.5 L Total Bilirubin (0.2-1.0) mg/dL 0.3 AST (15-37) U/L 19 ALT (14-59) U/L 36 Alkaline Phosphatase (46-116) U/L 46 Troponin I (< or =60) ng/L < 50 NT-Pro-B Natriuret Pep (<300) pg/mL 7 Total Protein (6.4-8.2) g/dL 7.3 Albumin (3.4-5.0) g/dL 3.8 Medical Decision Making Emergent evaluation of chest pain. Patient reports 10 out of 10 chest pain at this time. Initial EKG does not demonstrate acute ischemic changes. She does have significant family risk factors. Plan for cardiac evaluation. Cardiac monitoring. Aspirin and nitroglycerin. After 2 doses of nitroglycerin, the patient reports 0 out of 10 chest pain. Lab work reviewed. Initial blood work including cardiac enzymes are unremarkable. Magnesium slightly on the low side. Repeat EKG does not demonstrate dynamic changes. She has not had recurrence of her chest pain since she had it resolved after the nitroglycerin. Given her chest pain and family history, she seems to be high risk and would benefit for admission, rule out and provocative stress testing. Discussed with the hospitalist who agrees with this plan and will admit the patient to their service. Medical Records Medical records reviewed: Yes I reviewed the patient's medical records. Lab Data Lab results reviewed: Yes I reviewed the patient's lab results. Quality:SDOH Health Related Social Needs: No Data to Display PFSH All Active Problems Cervical radiculopathy (Acute) Lumbar radiculitis (Acute) Restrictive lung disease (Acute) Obstructive sleep apnea syndrome (Acute) uses C-PAP Increased BMI (Acute) Hypothyroidism (Acute) Hyperlipidemia (Acute) Heart murmur (Acute) Headache (Acute) Diabetes mellitus (Acute) Asthma (Acute) Lumbosacral spondylosis without myelopathy (Acute) Cubital tunnel syndrome on left (Acute) Medical History Mild persistent asthma Bilateral carpal tunnel syndrome Neuropathy of right ulnar nerve at wrist Athletes foot Edema of both ankles Skin rash Right leg pain Chest pain Paresthesia Right hip pain Flat feet Arm numbness Preventative health care Hyperuricemia Achilles tendinitis, left leg Acid reflux Otalgia of left ear Hypertension Neck pain Hyperlipidemia Restrictive lung disease Polycystic kidney disease Uterine leiomyoma Onychomycosis Back pain Asthma Hypothyroidism Heart murmur Pt. states this was a long time ago, and has never had an issue with it DM (diabetes mellitus) Type II Obstructive sleep apnea Surgical History Hx of removal of cyst chest History of carpal tunnel surgery of right wrist Left carpal tunnel syndrome (02/12/21) s/p ECTR Right carpal tunnel syndrome (02/05/21) s/p ECTR S/P cholecystectomy Colonoscopy - MAC (09/30/15) Dr Barillas, repeat 10 years Family History Mother Essential hypertension Hyperlipidemia Father Heart disease Hyperlipidemia Stroke Brother Essential hypertension Stroke Grandfather Essential hypertension Stroke Grandfather Essential hypertension Stroke Grandmother Essential hypertension Stroke Grandmother Stroke Brother Stroke Son No problems noted. Daughter No problems noted. Daughter No problems noted. Social History Smoking/Tobacco Use Status: Never Smoking risk assessment performed?: Yes Alcohol Intake: never Drug use: Never Substance use type: does not use Household members: spouse Housing: house Number of Children: 3 What type of physical activity do you participate in: none Do you feel safe at home: Yes Do you feel safe in your relationship?: Yes
--- NOTE | 2023-06-16 21:28 | W.PM.HP.N ---
Date of service: 06/16/23 Time of Service: 21:28 Assessment and Plan Assessment and plan (1) Chest pain at rest: Status: Acute Assessment and plan: patient has never had exertional CP or exertional dyspnea w/ her usual ADL's or w/ doing housework or yardwork or grocery shopping. The sudden onset along w/ her personal hx of PCKD and FH of multiple members w/ sudden associated w/ CP is concerning for TAA/AAA; I think that prior to performing stress MPI she should have CTA chest, abdomen and pelvis to r/o TAA/AAA. If negative tonight then proceed w/ Lexiscan stress MPI tomorrow. It is still possible that her CP may have been GERD/esophageal spasm relieved by NTG but ischemic CAD needs to be investigated given her multiple risk factors. (2) Hypothyroidism: Status: Chronic Assessment and plan: continue home dose of levothyroxine Qualifiers: Hypothyroidism type: acquired Qualified Code(s): E03.9 - Hypothyroidism, unspecified (3) Hyperlipidemia: Status: Chronic Assessment and plan: continue current simvastatin but check her lipid profile, if not controlled then consider switch to atorvastatin or rosuvastatin Qualifiers: Hyperlipidemia type: unspecified Qualified Code(s): E78.5 - Hyperlipidemia, unspecified (4) Diabetes mellitus: Status: Chronic Assessment and plan: monitor glucose AC/HS, cover w/ her basal insulin along w/ SSI novolog; check glycohemoglobin A1C Qualifiers: Diabetes mellitus type: type 2 Diabetes mellitus mcc insulin use: with superintendent container terminal use Diabetes mellitus complication status: without complication Qualified Code(s): E11.9 - Type 2 diabetes mellitus without complications; Z79.4 - superintendent container terminal (current) use of insulin (5) Asthma: Status: Chronic Qualifiers: Asthma severity: mild Asthma persistence: intermittent Asthma complication type: uncomplicated Qualified Code(s): J45.20 - Mild intermittent asthma, uncomplicated (6) Polycystic kidney disease: (7) Hyperuricemia: Assessment and plan: continue her home dose of allopurinol (8) Hypomagnesemia: Status: Acute Assessment and plan: Mg 1.5, will give her iv replacement tonight, recheck labs in the morning; consider continued oral supplementation History of Present Illness History of Present Illness Chief Complaint: chest pain Narrative: 62 yr old [place] woman w/ hx of HTN, HLD, PCKD, DM type II (on insulin) and asthma who presented to the E.D. this afternoon w/ acute onset of nonexertional CP (SSCP w/ radiation into neck and between the scapula, w/ some nausea. Symptoms began shortly after she awoke this morning at 6 am and was not that bad so she monitored her symptoms and took some Tylenol and her routine meds for her HTN and DM. However as the day progressed her pain became worse and radiated into her neck and her back and she had nausea w/ this. Her CP did not resolve until she was given two doses of nitroglycerin 0.4 mg. EKG on admission at 17:48 showed NSR @ 82 bpm and no acute ST elevation or depression and normal looking T waves. Repeat EKG was done @ 19:07 and again demonstrated NSR rate [address]-T changes. CXR reported as normal size heart and aorta and clear lungs; impresson no acute abnormalities. Troponin was normal <50 x two sets and pro-BNP was normal @ 7. Patient is admitted on observation status for stress MPI in the morning but first she needs CTA to rule out TAA given her hx of PCKD and she has multiple family members w/ sudden onset of . Her father at age of 30 after presenting to a physician in the [facility] w/ symptoms of acute onset of chest pain. Her uncle also similar in his 50's and her younger brother also in his 50's w/ sudden onset chest pain. The patient is regularly followed by nephrology at [facility] but she does not recall when she last had CTA of her chest or an echo. Prior to today, she never had CP or dyspnea w/ normal activities such as groceries, housework or yardwork. Review of Systems All systems reviewed & are unremarkable except as noted in HPI and below Cardiovascular Cardiovascular: Reports as per HPI Respiratory Respiratory: Reports as per HPI PFSH All Active Problems (Updated 06/16/23 @ 22:30 by Gold Galeano MD) Hypomagnesemia (Acute) Chest pain at rest (Acute) Cervical radiculopathy (Acute) Lumbar radiculitis (Acute) Restrictive lung disease (Acute) Obstructive sleep apnea syndrome (Acute) uses C-PAP Increased BMI (Acute) Hypothyroidism (Chronic) Hyperlipidemia (Chronic) Heart murmur (Acute) Headache (Acute) Diabetes mellitus (Chronic) Asthma (Chronic) Lumbosacral spondylosis without myelopathy (Acute) Cubital tunnel syndrome on left (Acute) Medical History Mild persistent asthma Bilateral carpal tunnel syndrome Neuropathy of right ulnar nerve at wrist Athletes foot Edema of both ankles Skin rash Right leg pain Chest pain Paresthesia Right hip pain Flat feet Arm numbness Preventative health care Hyperuricemia Achilles tendinitis, left leg Acid reflux Otalgia of left ear Hypertension Neck pain Hyperlipidemia Restrictive lung disease Polycystic kidney disease Uterine leiomyoma Onychomycosis Back pain Asthma Hypothyroidism Heart murmur Pt. states this was a long time ago, and has never had an issue with it DM (diabetes mellitus) Type II Obstructive sleep apnea Surgical History Hx of removal of cyst chest History of carpal tunnel surgery of right wrist Left carpal tunnel syndrome (02/12/21) s/p ECTR Right carpal tunnel syndrome (02/05/21) s/p ECTR S/P cholecystectomy Colonoscopy - MAC (09/30/15) Dr Barillas, repeat 10 years Family History Mother Essential hypertension Hyperlipidemia Father Heart disease Hyperlipidemia Stroke Brother Essential hypertension Stroke Grandfather Essential hypertension Stroke Grandfather Essential hypertension Stroke Grandmother Essential hypertension Stroke Grandmother Stroke Brother Stroke Son No problems noted. Daughter No problems noted. Daughter No problems noted. Social History Smoking/Tobacco Use Status: Never Smoking risk assessment performed?: Yes Alcohol Intake: never Drug use: Never Substance use type: does not use Household members: spouse Housing: house Number of Children: 3 What type of physical activity do you participate in: none Do you feel safe at home: Yes Do you feel safe in your relationship?: Yes Meds Allergies and Home Medications Allergies Allergy/AdvReac Type Severity Reaction Status Date / Time ibuprofen AdvReac Mild Other (See Verified 06/16/23 21:54 Comment) Home Medications Medication Instructions Recorded Confirmed Type Aerochamber 1 ea miscellaneous PRN ##1 05/24/13 02/11/21 Clinic blood sugar diagnostic (OneTouch #100 strips 07/06/15 11/08/23 History Ultra Test strips) levothyroxine 88 mcg tablet 88 mcg PO DAILY #90 tab-caps 01/21/17 03/11/23 Rx fluticasone propionate 110 1 puff inhalation BID 03/24/18 03/11/23 History mcg/actuation HFA aerosol inhaler (Flovent HFA) fluticasone propionate 50 1 spray NS DAILY #1 g 03/24/18 03/11/23 History mcg/actuation nasal spray,suspension (Flonase Allergy Relief) allopurinol 100 mg tablet 100 mg PO DAILY 12/06/18 03/11/23 History albuterol sulfate 90 mcg/actuation 2 puff inhalation Q6H PRN 07/18/19 03/11/23 History aerosol inhaler (ProAir HFA) blood sugar diagnostic (ReliOn 07/18/19 12/23/22 History Prime Test Strips) blood-glucose meter (ReliOn Prime 07/18/19 12/23/22 History Meter) lancets (ReliOn Ultra Thin Plus 07/18/19 12/23/22 History Lancets) metformin 500 mg tablet,extended 1,000 mg PO BID 07/18/19 03/11/23 History release 24 hr pen needle, diabetic 31 gauge x 07/18/19 12/23/22 History 3/16 (Pen Needle) diclofenac sodium 1 % topical gel 2 g topical TID PRN 03/01/20 03/11/23 History (Voltaren) budesonide-formoterol HFA 80 2 puff inhalation BID 03/11/20 03/11/23 History mcg-4.5 mcg/actuation aerosol inhaler (Symbicort) ascorbate calcium (vitamin C) 500 500 mg PO DAILY 06/17/20 03/11/23 History mg tablet insulin detemir U-100 100 unit/mL 58 unit subcut QHS 06/17/20 03/11/23 History (3 mL) subcutaneous pen (Levemir FlexTouch U-100 Insulin) acetaminophen 500 mg tablet 500 mg PO Q6H PRN pain #60 tabs 02/05/21 03/11/23 Rx ondansetron HCl 4 mg tablet 4 mg PO Q8H #12 tabs 07/01/21 03/11/23 Rx (Zofran) ciclopirox 0.77 % topical cream 1 applic topical BID PRN 04/28/22 03/11/23 History gabapentin 300 mg capsule 300 mg PO BID 04/28/22 03/11/23 History magnesium oxide 250 mg PO BID 04/28/22 03/11/23 History nitroglycerin 0.4 mg sublingual 0.4 mg sublingual Q5M PRN 04/28/22 03/11/23 History tablet liraglutide 0.6 mg/0.1 mL (18 mg/3 0.6 mg subcut DAILY 04/29/22 03/11/23 History mL) subcutaneous pen injector (Nodality 2-Foreign) colestipol 1 gram tablet 1 g PO ONCE 12/03/22 03/11/23 History lisinopril 5 mg tablet 5 mg PO BID 12/03/22 03/11/23 History omeprazole 20 mg capsule,delayed 20 mg PO .at bedtime 12/03/22 03/11/23 History release simvastatin 40 mg tablet 40 mg PO DAILY #90 tab-caps 12/03/22 03/11/23 History Exam Narrative Exam Narrative: Middle age female who wears glasses, she is alert and oriented x 3, no distress, currently denies any chest pain or pressure and no dyspnea or headache HEENT: normal, full EOMI, normal sclerae, normal pupils, normal speech, moist mucous membranes, no exudates Neck: supple, nontender, normal carotid pulses, no bruis, no JVD Lungs: clear Heart: RRR, no murmur, rub or gallops or rub Abdomen: no bruits, soft, nontender, no guarding or organomegaly Extremities: normal ROM and strength, no edema Results Imaging Chest x-ray: report reviewed and image reviewed EKG: report reviewed and image reviewed Labs 06/16/23 18:05 06/16/23 18:05 Labs: Laboratory Results - last 24 hr 06/16/23 18:05 WBC 7.35 RBC 4.25 Hgb 11.8 Hct 37.2 MCV 88 MCH 27.8 MCHC 31.7 L RDW 13.1 Plt Count 199 MPV 8.6 Immature Gran % 0.1 Neutrophils % 33.2 Lymphocytes % 56.7 Monocytes % 6.5 Eosinophils % 2.7 Basophils % 0.8 Nucleated RBC % 0.0 Absolute Neutrophils 2.43 Absolute Lymphocytes 4.17 H Absolute Monocytes 0.48 Absolute Eosinophils 0.20 Absolute Basophils 0.06 Sodium 137 Potassium 4.1 Chloride 101 Carbon Dioxide 28.3 Anion Gap 7.7 BUN 12 Creatinine 0.9 Est GFR (CKD-EPI 2020) 73.19 Glucose 214 H Calcium 8.5 Magnesium 1.5 L Total Bilirubin 0.3 AST 19 ALT 36 Alkaline Phosphatase 46 Troponin I < 50 NT-Pro-B Natriuret Pep 7 Total Protein 7.3 Albumin 3.8 Last Vital Signs Temp 36.3 C L 06/16/23 17:48 Pulse 75 06/16/23 20:31 Resp 17 06/16/23 20:40 BP 107/48 L 06/16/23 20:31 Pulse Ox 97 06/16/23 20:40 Time Spent Time spent with Patient: 55-74 minutes Time was spent: preparing to see the patient(eg.review tests), obtaining and/or reviewing separately otained hiistory, ordering medications,tests, procedures, referring, communicating with other health wild animal caretaker, indepentently interpreting results, counseling the patient and care coordination
[2023-06-16 21:40] LABS: Troponin I < 50 ng/L (< or =60)
[2023-06-16] MEDS: Lisinopril 5 MG TAB PO (23:22)
[2023-06-16] MEDS: Gabapentin 300 MG CAP PO (23:22)
[2023-06-16] MEDS: Enoxaparin 40 MG/0.4 ML SYR SC (23:22)
[2023-06-16] MEDS: Omeprazole 20 MG CAPCR PO (23:22)
[2023-06-16] MEDS: MAGNESIUM SULFATE 2 GM/50 ML BAG IVINF (23:23)
--- NOTE | 2023-06-17 | DI.CT_ITS ---
Exam(s) CT ABDOMEN PELVIS CTA EXAM: CT ABDOMEN PELVIS CTA CLINICAL HISTORY: CHEST PAIN, FH HX OF TAA/AAA. TECHNIQUE: Imaging Protocol: Axial CT angiography was performed with multi-slice acquisition and m ulti-planar and/or 3D reconstructions. CONTRAST MATERIAL: Intravenous: Omnipaque 350 Contrast volume:structured data in ml Oral: no COMPARISON: US US RENAL from 04/14/[address] CHEST PE CTA from 06/17/2023 FINDINGS: Vascular Structures: Minimal atherosclerotic plaque. Celiac [place]:No evidence of stenosis. SMA: No evidence of stenosis. Renal Arteries: No evidence of stenosis. There is a single renal artery perfusing each kidney. Aorta: No aneurysm. No dissection. No significant stenosis. Iliac Arteries: No evidence of stenosis. Common Femoral Arteries: No evidence of stenosis. Soft Tissues:Some edema and subcutaneous air in the anterior midline of the abdomen presumably inject ion site. Lung bases:No acute findings. Liver: Normal size. Normal density. No measurable mass. Gallbladder and biliary tract: Status post cholecystectomy. No biliary dilation. Pancreas: Normal density, no abnormal calcifications or inflammatory process. Spleen: Normal. Kidneys: Innumerable bilateral renal cysts consistent with patient's history polycystic kidney diseas e.. No obstructive uropathy. No masses seen. No evidence of calculi. Adrenal glands: No masses seen. Bladder: No gross wall thickening. No evidence of calculi. No evidence of of mass. Bowel: No obstruction or bowel wall thickening. Peritoneal cavity: No ascites. No focal collection. No mesenteric inflammatory response. Bones: No acute findings. Lymph nodes: Within normal limits. Reproductive: Unremarkable. IMPRESSION: Minimal atherosclerotic plaque. No evidence of aneurysm or dissection. Polycystic kidneys. RADIATION DOSE DELIVERED: 626.43mGy.cm Total DLP DATA REPOSITORY: All CT scans at this facility are submitted to the National Radiology Data Registry (NRDR) Dose Index Registry (DIR) with the [employer] (ACR). RADIATION OPTIMIZATION: All CT scans at this facility use at least one of these dose optimization te chniques: automated exposure control; mA and/or kV adjustment per patient size (includes targeted exa ms where dose is matched to clinical indication); or iterative reconstruction.
--- NOTE | 2023-06-17 | DI.CT_ITS ---
Exam(s) CT CHEST PE CTA EXAM: CT CHEST PE CTA CLINICAL HISTORY: chest pain. TECHNIQUE: Imaging Protocol: Axial CT angiography was performed with multi-slice acquisition and mu lti-planar reconstructions as well as axial, coronal and sagittal MIP reconstructions. CONTRAST MATERIAL: Intravenous: Omnipaque 350 Contrast volume:100 ml COMPARISON: No exams were available for comparison FINDINGS: Pulmonary Arteries: No evidence of filling defect to suggest pulmonary emboli. Tracheobronchial tree: No mucous plugging. Mediastinum and Ghislaine: No dominant adenopathy or fluid collection. Pulmonary parenchyma: No consolidation or dominant measurable mass. Pleura: No effusion or pneumothorax. Heart: The heart is not dilated. No coronary artery calcifications are seen. Aorta: Ascending aorta measures 3.7 cm. No dissection. Upper abdomen: No acute findings. Bones: Mild scoliosis. Degenerative changes prominent osteophytes noted in the spine. Tubes, Catheters, and Lines: None Soft tissues: Unremarkable. IMPRESSION: No evidence of pulmonary embolism or other acute abnormality in the chest. RADIATION DOSE DELIVERED: 302.68mGy.cm Total DLP DATA REPOSITORY: All CT scans at this facility are submitted to the National Radiology Data Registry (NRDR) Dose Index Registry (DIR) with the [employer] (ACR). RADIATION OPTIMIZATION: All CT scans at this facility use at least one of these dose optimization te chniques: automated exposure control; mA and/or kV adjustment per patient size (includes targeted exa ms where dose is matched to clinical indication); or iterative reconstruction.
[2023-06-17] MEDS: Omnipaque 350 MG/ML 100 ML BTL IJ (00:06)
[2023-06-17] MEDS: Omnipaque 350 MG/ML 50 ML BTL IJ (00:22)
[2023-06-17] MEDS: Normal Saline - Diluent 50 ML VIAL IJ ×2 (00:23→00:25)
--- NOTE | 2023-06-17 01:16 | DI.VRAD_ITS ---
PROCEDURE INFORMATION: Exam: CTA Abdomen and Pelvis With Contrast Exam date and time: 06/17/2023 12:16 AM Age: 62 years old Clinical indication: Other: Chest pain; Additional info: Chest pain, fh h/o taa/aaa TECHNIQUE: Imaging protocol: Computed tomographic angiography of the abdomen and pelvis with contrast. Exam focused on the arteries. 3D rendering (Not supervised by radiologist): MIP and/or 3D reconstructed images were created by the technologist. Contrast material: OMNI 350; Contrast volume: 100 ml; Contrast route: INTRAVENOUS (IV); COMPARISON: CR XR HIP RT COMPLETE AP PELVIS 12/11/2021 1:47 PM FINDINGS: Aorta: No aortic aneurysm. No aortic dissection. Celiac trunk and mesenteric arteries: No occlusion or significant stenosis. Renal arteries: No occlusion or significant stenosis. Right iliac arteries: No occlusion or significant stenosis. Calcified atheromas. Left iliac arteries: No occlusion or significant stenosis. Calcified atheromas. Veins: Pelvic phleboliths. Liver: No mass. Gallbladder and bile ducts: Post cholecystectomy. Pancreas: Unremarkable. No mass. No ductal dilation. Spleen: Unremarkable. No splenomegaly. Adrenal glands: Unremarkable. No mass. Kidneys and ureters: Enlarged bilateral kidneys containing multiple renal cysts, suggestive of autosomal dominant polycystic kidney disease. No hydronephrosis on either side. Stomach and bowel: Unremarkable. No obstruction. No mucosal thickening. Appendix: No evidence of appendicitis. Intraperitoneal space: Unremarkable. No free air. No significant fluid collection. Lymph nodes: Unremarkable. No enlarged lymph nodes. Urinary bladder: Unremarkable. No mass. Reproductive: Unremarkable as visualized. Bones/joints: Bilateral L3-L4 facet joint arthropathy with mild anterolisthesis of L3 over L4. Posterior L4-L5 disc bulge causing mild thecal compression. DISH changes of the lower thoracic spine. Congenital spinal canal narrowing. Soft tissues: Unremarkable. IMPRESSION: 1. No aortic aneurysm or dissection. 2. Findings consistent with autosomal dominant polycystic kidney. Dictated and Authenticated by: Riley Haynes MD. Ordering:[facility] Waleska Malcolm MD
--- NOTE | 2023-06-17 01:18 | DI.VRAD_ITS ---
PROCEDURE INFORMATION: Exam: CTA Chest With Contrast Exam date and time: 06/17/2023 12:13 AM Age: 62 years old Clinical indication: Pain; Chest pressure; Additional info: Chest pain, FX h/o taa/aaa TECHNIQUE: Imaging protocol: Computed tomographic angiography of the chest with contrast. Exam focused on the arteries. 3D rendering (Not supervised by radiologist): MIP and/or 3D reconstructed images were created by the technologist. Contrast material: OMNI 350; Contrast volume: 100 ml; Contrast route: INTRAVENOUS (IV); COMPARISON: CR XR PORTABLE CHEST AP 06/16/2023 6:40 PM FINDINGS: Pulmonary arteries: Normal. No pulmonary emboli. Aorta: Unremarkable. No aortic aneurysm. No aortic dissection. Lungs: Unremarkable. No consolidation. No masses. Pleural spaces: Unremarkable. No pneumothorax. No pleural effusion. Heart: Unremarkable. No cardiomegaly. No pericardial effusion. Lymph nodes: Unremarkable. No enlarged lymph nodes. Bones/joints: Mild curvature thoracic spine convex to the right. Multilevel bridging osteophytes of the thoracic spine consistent with DISH. Soft tissues: Unremarkable. IMPRESSION: No acute intrathoracic process. Dictated and Authenticated by: Riley Haynes MD. Ordering:[facility] Waleska Malcolm MD
[2023-06-17 03:02] VITALS: BP 129/74; PULSE 72; RESP 16; TEMP 36.4; O2SAT 99
[2023-06-17] MEDS: Levothyroxine 88 MCG TAB PO (06:12)
--- NOTE | 2023-06-17 07:00 | DI.NM_ITS ---
APPROVED REPORT Exam: Pharmacologic Patient Location: In-Patient Room/Bed: Stress Nurse: Shey Bueno RN Ordering Provider:NASEEM VARGHESE, Contact Number: BMI: 28.90 Baseline Rhythm: Sinus Rhythm Indications: Chest pain, Medical History Medical History: Diabetes, HTN, restrictive lung disease, MIGUEL, increased BMI, HLD, asthma, hypothyroi dism, heart murmur, acid reflux, polycystic kidney disease Cardiac Medications: Albuterol sulfate, allopurinol, symbicort, colestipol, flovent, gabapentin, leve marilee, levothyroxine, victoza, lisinopril, metformin, magnesium oxide, nitro, zofran, simvastatin Allergies: Ibuprofen Cardiac Risk Factors: Family hx, HTN, HLD, diabetes, asthma Previous Cardiac Procedures: None Pretest Chest Pain Characteristics: None Exercise History: Indeterminate Physical Disabilities: None Lung Sounds: Crackles bilateral bases Heart Sounds: Regular Stress Test Details Test: Pharmacologic stress testing performed using 0.4 mg of regadenoson per 5 mL given IV over 10 s econds. Reason for pharmacologic stress test: physical limitation. Nuclear Acquisition: Rest Tc-99m/Stress Tc-99m 1 day Rest Isotope: Tc-99m Sestamibi. Dose: 10.0 Date: 06/17/2023 Injection Time: 1200 Stress Isotope: Tc-99m Sestamibi. Dose: 30.0 Date: 06/17/2023 Injection Time: 1415 HR Resting HR Supine: 71 bpm Max Heart Rate (APMHR): 160 bpm Target HR (85% APMHR): 136 bpm Max HR Achieved: 89 bpm % of APMHR: 56 Recovery HR: 83 bpm BP Resting BP Supine: 134/80 mmHg Max BP: 134/80 mmHg Recovery BP: 122/72 mmHg ECG Resting ECG: Sinus Rhythm Ectopy: None Stress ECG: Sinus Rhythm ST Change: Nondiagnostic low heart rate Arrhythmia: None Recovery ECG: Sinus Rhythm Recovery ST Change: Nondiagnostic low heart rate Recovery Arrhythmia: None Clinical Stress Symptoms: Moderate chest pressure Angina Score: Non-Limiting Rate Pressure Product: [id number] Stress ECG Conclusion 1. Resting electrocardiogram was within normal limits 2. Patient underwent testing using pharmacologic stress with regadenoson 3. The electrocardiographic portion of the test was nondiagnostic 4. See MPI report Stress Test Summary STAGE HR BP SpO2 Symptoms NOTES Supine 71 134/80 97 1 min post Lexiscan injection 89 134/62 3 min post Lexiscan injection 82 118/72 6 min post Lexiscan injection 83 122/72 94 MPI Conclusion Myocardial perfusion is normal. There is no ischemia or evidence of prior infarction Ejection fraction is 77% with normal wall motion Radiologist Interpretation Radiologist agrees with Printing Press Operator Apprentice's Interpretation. Radiologist Interpretation by: Marianna Hearn MD Interpretation Date/Time: 06/17/2023 15:46:30
[2023-06-17 07:05] LABS: Hemoglobin A1C 8.5 % (<5.7)
[2023-06-17 07:20] LABS: Calculated LDL 55 mg/dL (<100); Cholesterol 162 mg/dL (<200); HDL Cholesterol 54 mg/dL (40-60); Triglyceride 269 mg/dL (<150)
[2023-06-17 07:21] VITALS: BP 133/72; PULSE 69; RESP 18; TEMP 36.7; O2SAT 97
[2023-06-17] MEDS: Normal Saline Flush 10 ML SYR IVP (07:38)
[2023-06-17] MEDS: Magnesium Gluconate 500 MG TAB PO (07:38)
[2023-06-17] MEDS: Magnesium Oxide 400 MG TAB 200 MG PO (07:39)
[2023-06-17] MEDS: Ascorbic Acid 500 MG TAB PO (07:39)
[2023-06-17] MEDS: metFORMIN C.R. 500 MG TABCR 1000 MG PO (07:39)
[2023-06-17] MEDS: Lisinopril 5 MG TAB PO (07:40)
[2023-06-17] MEDS: Gabapentin 300 MG CAP PO (07:41)
[2023-06-17] MEDS: Budesonide/Formoterol 80/4.5 6.9 GM 60 PUFF INH IH (08:09)
[2023-06-17] MEDS: Fluticasone NASAL SPRAY 16 GM BTL NS (08:45)
--- NOTE | 2023-06-17 09:15 | PDOC.CMIN ---
Date of service: 06/17/23 Time of Service: 09:15 Care Management Initial Assmt Initial Assessment REASON FOR HOSPITALIZATION:: Chest Pain PREVIOUS FUNCTIONAL STATUS/SOCIAL/FAMILY SUPPORTS:: Resides in [facility] with , Song. Daughter Beata supportive. CURRENT FUNCTIONAL STATUS:: Per provider Verónica will have an MPI Stress Test and may discharge later today. CM following. ADVANCE DIRECTIVES:: On file; Verónica (Beata-daughter) as agent, Caitlin as alternate Has patient been provided with info about the portal/API?: No Did the patient sign up for the portal?: No CODE STATUS:: Full Code INSURANCE COVERAGE / FINANCIAL ISSUES:: [employer] CURRENT HOME/COMMUNITY SERVICES/EQUIPMENT:: nephrology at [facility] PRIMARY CARE PHYSICIAN:: Margoth Sommer POTENTIAL DISCHARGE NEEDS:: Follow up appointments. PATIENT/FAMILY EDUCATION NEEDS:: Review discharge instructions, discuss Ask Me Three. ANTICIPATED BARRIERS TO DISCHARGE:: None identified. TRANSPORTATION:: Via private vehicle. PLAN:: Patient is admitted on observation status for stress MPI in the morning but first she needs CTA to rule out TAA given her hx of PCKD and she has multiple family members w/ sudden onset of . PFSH All Active Problems (Updated 06/17/23 @ 13:59 by Loly Romero APRN) Hypomagnesemia (Acute) Chest pain at rest (Acute) Cervical radiculopathy (Acute) Lumbar radiculitis (Acute) Restrictive lung disease (Acute) Obstructive sleep apnea syndrome (Acute) uses C-PAP Increased BMI (Acute) Hypothyroidism (Chronic) Hyperlipidemia (Chronic) Heart murmur (Acute) Headache (Acute) Diabetes mellitus (Chronic) Asthma (Chronic) Lumbosacral spondylosis without myelopathy (Acute) Cubital tunnel syndrome on left (Acute) Medical History Mild persistent asthma Bilateral carpal tunnel syndrome Neuropathy of right ulnar nerve at wrist Athletes foot Edema of both ankles Skin rash Right leg pain Chest pain Paresthesia Right hip pain Flat feet Arm numbness Preventative health care Hyperuricemia Achilles tendinitis, left leg Acid reflux Otalgia of left ear Hypertension Neck pain Hyperlipidemia Restrictive lung disease Polycystic kidney disease Uterine leiomyoma Onychomycosis Back pain Asthma Hypothyroidism Heart murmur Pt. states this was a long time ago, and has never had an issue with it DM (diabetes mellitus) Type II Obstructive sleep apnea Surgical History Hx of removal of cyst chest History of carpal tunnel surgery of right wrist Left carpal tunnel syndrome (02/12/21) s/p ECTR Right carpal tunnel syndrome (02/05/21) s/p ECTR S/P cholecystectomy Colonoscopy - MAC (09/30/15) Dr Barillas, repeat 10 years Family History Mother Essential hypertension Hyperlipidemia Father Heart disease Hyperlipidemia Stroke Brother Essential hypertension Stroke Grandfather Essential hypertension Stroke Grandfather Essential hypertension Stroke Grandmother Essential hypertension Stroke Grandmother Stroke Brother Stroke Son No problems noted. Daughter No problems noted. Daughter No problems noted. Social History Smoking/Tobacco Use Status: Never Smoking risk assessment performed?: Yes Alcohol Intake: never Drug use: Never Substance use type: does not use Household members: spouse Housing: house Number of Children: 3 What type of physical activity do you participate in: none Do you feel safe at home: Yes Do you feel safe in your relationship?: Yes SDOH(Care Management) Screening Will the Patient Participate in the Screening?: Yes Do you worry about having a steady place to live?: no Problems where you live: no known problems In the past 12 months, have you had to go without electric, gas, oil or water in your home?: no Have you or anyone in your house had to go without enough food to eat?: no Has lack of transportation kept you from medical appointments or from doing things needed for daily living?: no Has anyone in your support network made you feel unsafe for any reason?: no
[2023-06-17] MEDS: Insulin Aspart 300 UNITS/3 ML PEN SC ×2 (09:28→16:28)
--- NOTE | 2023-06-17 09:30 | DI.US_ITS ---
APPROVED REPORT EXAM: Comprehensive 2D, Doppler, and color-flow Echocardiogram Patient Location: In-Patient Nurse Sexual Assault: Mat Werner RDCS (AE) Indications: Chest pain, r/o thoracic aneurysm Conclusion Normal left ventricular wall thickness and chamber size. EF is 60 to 65%. Wall motion is normal Normal right ventricular size and function Both atria are normal in size There is no structural or hemodynamically significant valvular disease Wall motion Left Ventricle The left ventricle is normal size. The left ventricular systolic function is normal. The left ventric ular ejection fraction is within the normal range. There is normal left ventricular wall thickness. T here is normal LV segmental wall motion. There is no ventricular septal defect visualized. LVEF is 60 -65%. Right Ventricle The right ventricle is normal size. The right ventricular systolic function is normal. Atria The left atrium size is normal. The right atrium size is normal. The interatrial septum is intact wit h no evidence for an atrial septal defect. Aortic Valve The aortic valve is normal in structure. Aortic valve is trileaflet. There is no aortic valvular sten osis. Trace aortic regurgitation. Mitral Valve The mitral valve is normal in structure. No evidence of mitral valve stenosis. Trace mitral regurgita tion. Tricuspid Valve The tricuspid valve is normal in structure. There is no tricuspid valve stenosis. Trace tricuspid reg urgitation. Unable to assess PA pressure. Pulmonic Valve The pulmonary valve is normal in structure. There is no pulmonic valvular stenosis. Mild pulmonic reg urgitation. Great Vessels The aortic root is normal in size. The ascending aorta is normal Aortic arch is normal in caliber. IV C is normal in size and collapses >50% with inspiration. Pericardium There is no pericardial effusion. 2D Dimensions IVSD d PLAX 0.77 cm F: 0.6-1.0 Ao Root d 2.85 cm F: 2.7 - 3.3 LVPW d PLAX 0.82 cm F: 0.6 - 1.0 Ao Asc Diam d 3.28 cm F: 2.3 - 3.1 LVID d PLAX 3.80 cm F: 3.8 - 5.2 LVDs 2.47 cm F: 2.2 - 3.5 LV EF Teichholz 65.1 % FS 35.03 % LV EDV (Teich) 62.1 mL LV ESV (Teich) 21.7 mL Stroke Vol Index (Teich) 23.78 M-Mode TAPSE 1.62 cm (M/F) >1.7 Auto EF LV EDV A4C 78.4 mL LV EDV A2C 65.1 mL LV EDV BP 71.5 mL LV ESV A4C 30.6 mL LV ESV A2C 23.8 mL LV ESV BP 27.1 mL LVEF(%) A4C 60.9 % LVEF(%) A2C 63.5 % LVEF(%) BP 62.1 % LV SV A4C 47.8 ml LV SV A2C 41.4 ml LV SV BP 44.5 ml LV CO A4C 3.3 L/min LV CO A2C 2.8 L/min LV CO BP 3.1 L/min HR A4C 69.63 BPM HR A2C 67.54 BPM LV EDV Index (BP) LA Volume LA Length A4C 3.4 cm LA Length A2C 3.2 cm LA Area A4C s 7.90 cm2 LA Area A2C s 7.22 cm2 LA Vol A4C A-L 15.80 mL LA Vol A2C A-L 13.86 mL LA Vol Biplane A-L 15.2 mL LA Vol/BSA A4C A-L LA Vol/BSA A2C A-L LA Vol/BSA BP A-L 8.9 mL/m2 LA Vol A4C MOD 15.2 mL LA Vol A2C MOD 13.2 mL LA Vol BP MOD 14.5 mL RA Volume RA Area A4C 3.1 cm2 RA ESV A4C (A-L) 2.9mL RA Vol/BSA A4C A-L RA Length A4C 2.8 cm RA ESV A4C (MOD) 2.8mL LV Diastology MV E' medial 0.067 (>0.07 m/s) MV E Vmax 0.74 (0.4-1.3 m/s) MV E/E' MED 11.03 (<14) MV A Vmax 0.95 (0.4-1.3 m/s) MV E' lateral 0.067 (>0.1 m/s) E/A Ratio 0.8 MV E/E' LAT 11.03 (<14) MV E' Average 0.067 m/s MV E/E'(average) 11.03 Aortic Valve AoV Vmax 1.15 m/s LVOT Vmax 0.83 m/s AoV Peak Grad 5.3 mmHg LVOT Peak Grad 2.7 mmHg AoV Area (Vmax) 2.05 cm2 LVOT VTI 0.221 m AoV VTI 0.283 m LVOT Mean Grad 1.7 mmHg AoV Mean Hakeem. 0.86 m/s LVOT SV 63.03 mL AoV Mean Grad 3.3 mmHg LVOT Diam s 1.90 cm AoV Area (VTI) 2.23 cm2 Velocity Ratio 0.72 Mitral Valve MV DT 283 (160-240 msec) Pulmonary Valve PV Vmax 0.71 (0.5-1.5 m/s) RVOT Vmax 0.50 m/s PV Peak Grad 2.0 mmHg RVOT Peak Gr. 1.0 mmHg PV Mean Hakeem 0.53 m/s RVOT VTI 0.120 m PV Mean Grad 1.3 mmHg RVOT Mean Gr. 0.6 mmHg
[2023-06-17 09:42] VITALS: BP 130/79; PULSE 72; RESP 18; TEMP 36.7; O2SAT 98
[2023-06-17] MEDS: Ketorolac 15 MG/ML VIAL IVP (11:35)
[2023-06-17] MEDS: Famotidine 20 MG TAB PO (11:36)
[2023-06-17] MEDS: Colestipol 1 GM TAB PO (11:36)
[2023-06-17 11:40] VITALS: BP 117/70; PULSE 72; RESP 18; TEMP 36.6; O2SAT 98
[2023-06-17] MEDS: Regadenoson 0.4 MG/5 ML SYR IVP (14:24)
--- NOTE | 2023-06-17 14:38 | CHAPLAIN ---
Verónica was sitting at the edge of the bed when I visited. I explained my role and offered support. Verónica had a friend/family member with her. She said she hopes to be discharged today.
[2023-06-17] MEDS: Acetaminophen 325 MG TAB PO (15:07)
[2023-06-17 15:45] VITALS: BP 136/71; PULSE 73; RESP 15; TEMP 36.1; O2SAT 94
--- NOTE | 2023-06-17 15:54 | PHA.REVIEW2 ---
Pharmacy Admission Review Admission Clinical Review Admission Pharmacy Review: Hypomagnesemia (Acute) Chest pain at rest (Acute) ibuprofen Adverse Reaction (Mild, Verified 06/16/23 21:54) Other (See Comment) Resuscitation Status Full Code Height 5 ft 1 in Weight 69.5 kg Pharmacy Admission Review Renal Dosing Renal Dosing: BUN 12 mg/dL (7-18) 06/16/23 18:05 Creatinine 0.9 mg/dL (0.55-1.02) 06/16/23 18:05 Medications needing adjustments: Reviewed (CrCl 53.34 mL/min) List of meds needing interventions: Current medications are okay Anticoagulation Anticoagulation: Hgb 11.8 g/dL (11.2-15.7) 06/16/23 18:05 Hct 37.2 % (36.0-46.0) 06/16/23 18:05 Plt Count 199 10^3/uL (130-400) 06/16/23 18:05 Creatinine 0.9 mg/dL (0.55-1.02) 06/16/23 18:05 DVT Prophylaxis: Reviewed Medications: Enoxaparin (40mg daily) Relevant Labs Relevant Labs: Sodium 137 mmol/L (136-145) 06/16/23 18:05 Potassium 4.1 mmol/L (3.5-5.1) 06/16/23 18:05 Chloride 101 mmol/L (98-107) 06/16/23 18:05 Magnesium 2.0 mg/dL (1.8-2.4) 06/17/23 06:09 Electrolytes, C-Reactive P, ESR: Reviewed DM Control DM Control: Glucose 214 mg/dL (74-106) H 06/16/23 18:05 Hemoglobin A1c 8.5 % (<5.7) H 06/17/23 06:09 Finger Stick Blood Glucose 133 1147 Finger Stick Blood Glucose 133 1131 Finger Stick Blood Glucose 133 1131 Finger Stick Blood Glucose 158 0928 DM Control: Reviewed Insulin Dosing, Diabetic Medication: Has order for SS insulin before meals and at bedtime, metformin and Levemir at bedtime. Cardiac Review Cardiac Review: Troponin I < 50 ng/L (< or =60) 06/16/23 21:14 NT-Pro-B Natriuret Pep 7 pg/mL (<300) 06/16/23 18:05 BP, HR, EF%: Reviewed (HR/BP WNL) QTc Review QTc: Reviewed (427 on 06/16/23) IV to PO Switch IV Medications: Reviewed Home Meds Relevent Home Meds Not ordered & why?: Cicopirox cream (PRN), Flovent (non-form substitution for Asmanex), Victoza (has orders for SS insulin + Levemir), and ondansetron (PRN) Current Meds Current Medication Order Review: Reviewed
--- NOTE | 2023-06-17 16:04 | W.PM.DS.N ---
Date of service: 06/17/23 Time of Service: 14:00 DS: Diagnosis Discharge Diagnosis (1) Chest pain at rest: Status: Acute (2) Hypothyroidism: Status: Chronic (3) Hyperlipidemia: Status: Chronic (4) Diabetes mellitus: Status: Chronic (5) Asthma: Status: Chronic (6) Polycystic kidney disease: (7) Hyperuricemia: (8) Hypomagnesemia: Status: Acute Discharge Plan Disposition Patient Disposition: Home Condition: Improving Discharge Details Reason For Visit: Chest pain Admit Date/Time: 06/16/23 20:05 Admit Provider: Gold Galeano Attending Provider: Gold Galeano Primary Care Provider: Margoth Sommer [place] [facility] Hospital Course: This 65 years old [place]ian female patient with a past medical history of hypertension, hyperlipidemia, polycystic kidney disease, diabetes type 2 on insulin, asthma presented to the ED at [facility] on 06/16/2023 with acute onset of nonexertional chest pain with radiation into the neck and between the scapula as well as nausea. The patient reported symptoms starting shortly after she woke up around 6 AM not subsiding with Tylenol increasing to her neck and back during the day. In the ED the patient reported that the chest pain resolved after the administration of 2 doses of nitroglycerin 0.4 mg. The EKG on admission at 17:48 showed normal sinus rhythm, heart rate 82, without acute ST elevation or depression with normal looking T waves. Repeated EKG later in the evening at 19:07 showed a heart rate of [address]?T changes. Chest x-ray showed no acute abnormalities. Troponin was negative x 2 in the ED and the proBNP was normal . The patient was admitted for observation with telemetry for stress test MPI in the morning. The hospitalist admitting the patient mentioned that, due to her history of polycystic kidney disease as well as a history of multiple family members with sudden onset with her father and her younger brother passing respectively at 30 and 50 years of age with symptoms of acute chest pain, the patient would benefit from a CTA to rule out thoracic aortic aneurysm.The patient has denied any prior history of acute chest pain or dyspnea with her normal activities such as groceries, housework, or yard work. Chest CT showed no evidence of pulmonary embolism or other acute abnormality. CTA showed no evidence of aneurysm, dissection or acute intra-thoracic process but polycytic kidneys noted. No evidence of hydronephrosis seen from imaging. Imaging showed diffuse idiopathic skeletal hyperostosis (DISH) to lower thoracic spine in addition to L3-L5 changes also noted to be followed up by the PCP. The echocardiogram showed the left ventricular ejection fraction of 60-65% with normal right ventricular size and function without structural or hemodynamically significant valvular disease. The MPI stress test completed and electrographic portion of the test was nondiagnostic. Report showed no electrographic evidence of myocardial ischemia.There was no significant dysrhythmias observed.Normal test confirmed as per discussion with Dr Fregoso, grief counsellor. During physical exam this morning, the patient had a left-sided chest pain reproducible with palpation, increasing in intensity with cough. The pain was also similar on her left with obvious tenderness to palpation. The patient agreed to a trial of Ketorolac after educated on the amount of caution to exert in regard of NSAIDs and the polycystic kidney disease. The patient verbalized relief of discomfort. Patient made aware that she will be discharged with a short course of 5 days of scheduled acetaminophen and PRN tramadol for 3 days. Patient is aware not to drive when she takes the tramadol. Discussed with Dr. Hall Home Meds and New Rx's Prescriptions: New tramadol 50 mg tablet 50 mg PO Q8H PRNQty: 9 0RF Continued (DME) blood-glucose meter [ReliOn Prime Meter] Misc MISCELLANEOUS (DME) ReliOn Prime Test Strips Strip MISCELLANEOUS (DME) lancets [ReliOn Ultra Thin Plus Lancets] Misc MISCELLANEOUS albuterol sulfate [ProAir HFA] 90 mcg/actuation Hfa Aerosol Inhaler 2 puff INHALATION Q6H PRN metformin 500 mg Tablet Extended Release 24 Hr 1,000 mg PO BID (DME) pen needle, diabetic [Pen Needle] 31 gauge x 3/16 Needle MISCELLANEOUS diclofenac sodium [Voltaren] 1 % Gel 2 g TOPICAL TID PRN budesonide-formoterol [Symbicort] 80-4.5 mcg/actuation HFA aerosol inhaler 2 puff inhalation BID Levemir FlexTouch U100 Insulin 100 unit/mL (3 mL) insulin pen 58 unit subcut QHS ascorbate calcium (vitamin C) 500 mg tablet 500 mg PO DAILY ciclopirox 0.77 % cream 1 applic topical BID PRN gabapentin 300 mg capsule 300 mg PO BID nitroglycerin 0.4 mg tablet, sublingual 0.4 mg sublingual Q5M PRN Rx Instructions: do not exceed 3 doses per episode magnesium oxide 250 mg magnesium tablet 250 mg PO BID Victoza 2-Foreign 0.6 mg/0.1 mL (18 mg/3 mL) pen injector 0.6 mg subcut DAILY fluticasone propionate [Flovent HFA] 110 mcg/actuation HFA aerosol inhaler 1 puff IH BID Hold Instructions: Resume on 06/23/23. As per PCP lisinopril 5 mg tablet 5 mg PO BID Patient Comments: TAKE 2 TABLETS BY MOUTH IN THE MORNING AND 1 AT BEDTIME DIRECTED colestipol 1 gram tablet 1 g PO ONCE Rx Instructions: take 1-2 tablets omeprazole 20 mg capsule,delayed release(DR/EC) 20 mg PO .at bedtime AEROCHAMBER 1 EACH spacer 1 ea Miscellaneous PRN Qty: 1 0RF (DME) OneTouch Ultra Test 1 EACH strip 1 strip Miscellaneous DAILY Qty: 100 Rx Instructions: DX:250.0 ONE TOUCH ULTRA MINI levothyroxine 88 MCG tablet 88 mcg PO DAILY Qty: 90 3RF fluticasone propionate [Flonase Allergy Relief] 50 mcg/actuation spray,suspension 1 spray NS DAILY Qty: 1 Patient Comments: Each Nostril simvastatin 40 mg tablet 40 mg PO DAILY Qty: 90 Rx Instructions: Take 1.5 tablets by mouth once a day allopurinol 100 mg Tablet 100 mg PO DAILY ondansetron HCl [Zofran] 4 mg tablet 4 mg PO Q8H Qty: 12 0RF Changed acetaminophen 500 mg tablet 1,000 mg PO Q8H Qty: 30 2RF Discharge Instructions Referrals: Margoth Sommer [Primary Care Provider] - (F/u w/i 7 days of discharge please) Activity:: Activity as Tolerated Equipment/Supplies:: No Equipment Needed Diet:: heart healthy diabetic diet Discharge Orders Discharge Orders: Discharge Order (Routine); Ordered 06/17/23 Ordered By: Loly Romero DS: Summary Time Spent with Patient providing and/or coordinating discharge services: Greater than 30 minutes Status at Discharge Functional status at discharge: independent ambulation Overall status at discharge: patient is progressing back to baseline Mental Status: mental status grossly normal Speech and Movement: speech and movement normal Mood: congruent mood Affect: normal affect Quality:SDOH Health Related Social Needs: No Data to Display Exam Narrative Exam Narrative: Constitutional The patient is bed comfortable and cooperative during the interview. The patient is without acute distress and has obese body habitus HENMT: Facial structures with normal appearance Neuro:alert and oriented X 4. No neurological focal deficit Chest: left chest pain, reproducible and exacerbated by palpation, and cough Resp: Normal respiratory pattern, speaks in full sentences, unlabored breathing, clear lung bilaterally Cardio: regular rhythm, S1, S2, no murmur, capillary refill<3 sec., bilateral radial and dorsalis pedis pulses are positive, palpable GI: Abdomen is not distended, soft and non tender, bowel sounds are present : Negative Costovertebral angle tenderness, no bladder distension Back/spine/Pelvis: left back tenderness, normal alignment Integumentary: No skin lesions or rash Extremities: strength 5/5 to bilateral lower and upper extremities Psych: RASS 0, congruent mood and normal affect. Psych Mental Status: mental status grossly normal Speech and Movement: speech and movement normal Mood: congruent mood Affect: normal affect DS: Data Vitals/I&O Vitals and I&O: Vital Signs Temperature 36.1 C L 06/17/23 15:45 Temperature Source Tympanic 06/17/23 15:45 Pulse 73 06/17/23 15:45 Pulse Rhythm Regular 06/17/23 09:16 Pulse 76 06/16/23 20:40 Respiratory Rate 15 06/17/23 15:45 Respiratory Effort Normal 06/17/23 09:16 Respiratory Depth Normal 06/17/23 09:16 Respiratory Pattern Normal 06/17/23 09:16 Blood Pressure 136/71 06/17/23 15:45 Blood Pressure Mean 69 06/16/23 20:31 Blood Pressure Position Sitting 06/16/23 17:48 Pulse Oximetry 94 06/17/23 15:45 Oxygen Delivery Method Room Air 06/17/23 15:45 Oxygen Flow Rate 0 06/17/23 15:45 Pain Level 0 06/17/23 15:45 Comment patient saturating on room air 06/16/23 21:08 Intake & Output 06/16/23 06/17/23 06/17/23 23:59 11:59 23:59 Intake Total 50 / 50 Balance 50 / 50 Weight 70.307 kg 69.5 kg Intake: IV 50 / 50 Other: Urine Color Yellow Yellow Urine Appearance Clear Clear Clear Comment Per patient she went to the bathroom Voiding Methods Toilet Toilet Data Completed and Pending Labs on day of discharge: Labs from last 24 hours 06/17/23 06/16/23 06/16/23 06:09 21:14 18:05 WBC 7.35 RBC 4.25 Hgb 11.8 Hct 37.2 MCV 88 MCH 27.8 MCHC 31.7 L RDW 13.1 Plt Count 199 MPV 8.6 Immature Gran % 0.1 Neutrophils % 33.2 Lymphocytes % 56.7 Monocytes % 6.5 Eosinophils % 2.7 Basophils % 0.8 Nucleated RBC % 0.0 Absolute Neutrophils 2.43 Absolute Lymphocytes 4.17 H Absolute Monocytes 0.48 Absolute Eosinophils 0.20 Absolute Basophils 0.06 Sodium 137 Potassium 4.1 Chloride 101 Carbon Dioxide 28.3 Anion Gap 7.7 BUN 12 Creatinine 0.9 Est GFR (CKD-EPI 2020) 73.19 Glucose 214 H Hemoglobin A1c 8.5 H Calcium 8.5 Magnesium 2.0 1.5 L Total Bilirubin 0.3 AST 19 ALT 36 Alkaline Phosphatase 46 Troponin I < 50 < 50 NT-Pro-B Natriuret Pep 7 Total Protein 7.3 Albumin 3.8 Triglycerides 269 H Total Cholesterol 162 LDL Cholesterol, Calc 55 HDL Cholesterol 54 PFSH All Active Problems (Updated 06/17/23 @ 13:59 by Loly Romero APRN) Hypomagnesemia (Acute) Chest pain at rest (Acute) Cervical radiculopathy (Acute) Lumbar radiculitis (Acute) Restrictive lung disease (Acute) Obstructive sleep apnea syndrome (Acute) uses C-PAP Increased BMI (Acute) Hypothyroidism (Chronic) Hyperlipidemia (Chronic) Heart murmur (Acute) Headache (Acute) Diabetes mellitus (Chronic) Asthma (Chronic) Lumbosacral spondylosis without myelopathy (Acute) Cubital tunnel syndrome on left (Acute) Medical History Mild persistent asthma Bilateral carpal tunnel syndrome Neuropathy of right ulnar nerve at wrist Athletes foot Edema of both ankles Skin rash Right leg pain Chest pain Paresthesia Right hip pain Flat feet Arm numbness Preventative health care Hyperuricemia Achilles tendinitis, left leg Acid reflux Otalgia of left ear Hypertension Neck pain Hyperlipidemia Restrictive lung disease Polycystic kidney disease Uterine leiomyoma Onychomycosis Back pain Asthma Hypothyroidism Heart murmur Pt. states this was a long time ago, and has never had an issue with it DM (diabetes mellitus) Type II Obstructive sleep apnea Surgical History Hx of removal of cyst chest History of carpal tunnel surgery of right wrist Left carpal tunnel syndrome (02/12/21) s/p ECTR Right carpal tunnel syndrome (02/05/21) s/p ECTR S/P cholecystectomy Colonoscopy - [facility] (09/30/15) Dr Barillas, repeat 10 years Family History Mother Essential hypertension Hyperlipidemia Father Heart disease Hyperlipidemia Stroke Brother Essential hypertension Stroke Grandfather Essential hypertension Stroke Grandfather Essential hypertension Stroke Grandmother Essential hypertension Stroke Grandmother Stroke Brother Stroke Son No problems noted. Daughter No problems noted. Daughter No problems noted. Social History Smoking/Tobacco Use Status: Never Smoking risk assessment performed?: Yes Alcohol Intake: never Drug use: Never Substance use type: does not use Household members: spouse Housing: house Number of Children: 3 What type of physical activity do you participate in: none Do you feel safe at home: Yes Do you feel safe in your relationship?: Yes Time Spent with Patient Time Spent with Patient: >85 minutes Time was spent: preparing to see the patient(eg.review tests), obtaining and/or reviewing separately otained hiistory, ordering medications,tests, procedures, referring, communicating with other health transitional care nurse, indepentently interpreting results, counseling the patient and care coordination
== END 2023-06-17 17:40 | disposition home or self-care (01) ==
LOC: ER 20:26 → MS 21:00
PROVIDERS: Admitting Provider Internal Medicine; Emergency Provider Emergency Medicine; PCP Nurse Practitioner Family; Visit Provider Internal Medicine
DX: R07.89 Other chest pain (principal); E78.5 Hyperlipidemia, unspecified; I10 Essential (primary) hypertension; E11.9 Type 2 diabetes mellitus without complications; E03.9 Hypothyroidism, unspecified; Z79.4 Long term (current) use of insulin; J45.20 Mild intermittent asthma, uncomplicated; E83.42 Hypomagnesemia; E79.0 Hyperuricemia without signs of inflammatory arthritis and tophaceous disease; Z82.41 Family history of sudden cardiac death; Q61.3 Polycystic kidney, unspecified; M54.16 Radiculopathy, lumbar region; M54.12 Radiculopathy, cervical region; M48.14 Ankylosing hyperostosis [Forestier], thoracic region; Z79.899 Other long term (current) drug therapy
CPT/HCPCS: 00123; 36415; 71275; 78452; 80053; 80061; 93005; 94640; 96365; 96366; 96372; 96375; 99285; J1650; 71045; 74174; 83036; 83735; 83880; 84484; 85025; 93010; 93017; 93306; 94664; 99222; 99239; G0378; J1815; J1885; J2785; J3475; J3490; Q9967

== ENCOUNTER 2023-08-14 22:03 | Emergency (ER) | payer OTHER, SELFPAY ==
[2023-08-14 22:05] VITALS: BP 161/68; PULSE 72; RESP 16; TEMP 36.8; O2SAT 100
[2023-08-14 22:22] VITALS: BP 161/68; PULSE 72; RESP 16; TEMP 36.8; O2SAT 100
[2023-08-14] MEDS: Fluorescein STRIPS 100/BOX 1 MG OP (22:23)
[2023-08-14] MEDS: Tetracaine 0.5% 4 ML BTL (22:28)
--- NOTE | 2023-08-14 23:04 | ED.GENADUL_ITS ---
Discharge Plan Disposition Patient Disposition: Home Condition: Stable Discharge Details Clinical Impression: Chemical exposure of eye, Corneal abrasion Primary Care Provider: Alis Ghosh V ED Provider: Debbi Pizano Home Meds and New Rx's Prescriptions: Continued (DME) blood-glucose meter [ReliOn Prime Meter] Misc MISCELLANEOUS (DME) ReliOn Prime Test Strips Strip MISCELLANEOUS (DME) lancets [ReliOn Ultra Thin Plus Lancets] Misc MISCELLANEOUS albuterol sulfate [ProAir HFA] 90 mcg/actuation Hfa Aerosol Inhaler 2 puff INHALATION Q6H PRN metformin 500 mg Tablet Extended Release 24 Hr 1,000 mg PO BID (DME) pen needle, diabetic [Pen Needle] 31 gauge x 3/16 Needle MISCELLANEOUS diclofenac sodium [Voltaren] 1 % Gel 2 g TOPICAL TID PRN budesonide-formoterol [Symbicort] 80-4.5 mcg/actuation HFA aerosol inhaler 2 puff inhalation BID Levemir FlexTouch U100 Insulin 100 unit/mL (3 mL) insulin pen 58 unit subcut QHS ascorbate calcium (vitamin C) 500 mg tablet 500 mg PO DAILY ciclopirox 0.77 % cream 1 applic topical BID PRN gabapentin 300 mg capsule 300 mg PO BID nitroglycerin 0.4 mg tablet, sublingual 0.4 mg sublingual Q5M PRN Rx Instructions: do not exceed 3 doses per episode magnesium oxide 250 mg magnesium tablet 250 mg PO BID Victoza 2-Foreign 0.6 mg/0.1 mL (18 mg/3 mL) pen injector 0.6 mg subcut DAILY fluticasone propionate [Flovent HFA] 110 mcg/actuation HFA aerosol inhaler 1 puff IH BID Hold Instructions: Resume on 06/23/23. As per PCP lisinopril 5 mg tablet 5 mg PO BID Patient Comments: TAKE 2 TABLETS BY MOUTH IN THE MORNING AND 1 AT BEDTIME DIRECTED colestipol 1 gram tablet 1 g PO ONCE Rx Instructions: take 1-2 tablets omeprazole 20 mg capsule,delayed release(DR/EC) 20 mg PO .at bedtime AEROCHAMBER 1 EACH spacer 1 ea Miscellaneous PRN Qty: 1 0RF (DME) OneTouch Ultra Test 1 EACH strip 1 strip Miscellaneous DAILY Qty: 100 Rx Instructions: DX:250.0 ONE TOUCH ULTRA MINI levothyroxine 88 MCG tablet 88 mcg PO DAILY Qty: 90 3RF fluticasone propionate [Flonase Allergy Relief] 50 mcg/actuation spray,suspension 1 spray NS DAILY Qty: 1 Patient Comments: Each Nostril simvastatin 40 mg tablet 40 mg PO DAILY Qty: 90 Rx Instructions: Take 1.5 tablets by mouth once a day allopurinol 100 mg Tablet 100 mg PO DAILY ondansetron HCl [Zofran] 4 mg tablet 4 mg PO Q8H Qty: 12 0RF tramadol 50 mg tablet 50 mg PO Q8H PRNQty: 9 0RF acetaminophen 500 mg tablet 1,000 mg PO Q8H Qty: 30 2RF Discharge Instructions Instructions: Chemical Eye Injury ED Additional Instructions: use the erythromycin 1/2 inch strip 3 x daily to left eye follow-up with [facility]([phone]) on wednesday for reassessment return earlier with vision change or should any new or worsening complaints arise tylenol as needed for pain Referrals: Alis Ghosh MD [Primary Care Provider] - [facility] General Date/Time Provider Initiated Documentation: 08/14/23 22:06 . HPI Narrative: 62-year-old female presents with report of eye irritation. Patient was dying her hair with herbatint hair dye, #4 when she thinks some of the dye went into her eye. She has had some stinging and pain since that time. Happened just prior to arrival. Denies any additional injuries or complaints. States she is having trouble opening the eye secondary to discomfort and tearing. Related Data Home Medications Medication Instructions Recorded Confirmed blood sugar diagnostic (OneTouch #100 strips 08/20/14 12/23/22 Ultra Test strips) levothyroxine 88 mcg tablet 88 mcg PO DAILY #90 tab-caps 01/21/17 08/14/23 fluticasone propionate 110 1 puff inhalation BID 03/24/18 08/14/23 mcg/actuation HFA aerosol inhaler (Flovent HFA) fluticasone propionate 50 1 spray NS DAILY #1 g 03/24/18 08/14/23 mcg/actuation nasal spray,suspension (Flonase Allergy Relief) allopurinol 100 mg tablet 100 mg PO DAILY 12/06/18 08/14/23 albuterol sulfate 90 mcg/actuation 2 puff inhalation Q6H PRN 07/18/19 08/14/23 aerosol inhaler (ProAir HFA) blood sugar diagnostic (ReliOn 07/18/19 12/23/22 Prime Test Strips) blood-glucose meter (ReliOn Prime 07/18/19 12/23/22 Meter) lancets (ReliOn Ultra Thin Plus 07/18/19 12/23/22 Lancets) metformin 500 mg tablet,extended 1,000 mg PO BID 07/18/19 08/14/23 release 24 hr pen needle, diabetic 31 gauge x 07/18/19 12/23/22 3/16 (Pen Needle) diclofenac sodium 1 % topical gel 2 g topical TID PRN 03/01/20 08/14/23 (Voltaren) budesonide-formoterol HFA 80 2 puff inhalation BID 03/11/20 08/14/23 mcg-4.5 mcg/actuation aerosol inhaler (Symbicort) ascorbate calcium (vitamin C) 500 500 mg PO DAILY 06/17/20 08/14/23 mg tablet insulin detemir U-100 100 unit/mL 58 unit subcut QHS 06/17/20 08/14/23 (3 mL) subcutaneous pen (Levemir FlexTouch U-100 Insulin) ondansetron HCl 4 mg tablet 4 mg PO Q8H #12 tabs 07/01/21 08/14/23 (Zofran) ciclopirox 0.77 % topical cream 1 applic topical BID PRN 04/28/22 08/14/23 gabapentin 300 mg capsule 300 mg PO BID 04/28/22 08/14/23 magnesium oxide 250 mg PO BID 04/28/22 08/14/23 nitroglycerin 0.4 mg sublingual 0.4 mg sublingual Q5M PRN 04/28/22 08/14/23 tablet liraglutide 0.6 mg/0.1 mL (18 mg/3 0.6 mg subcut DAILY 04/29/22 08/14/23 mL) subcutaneous pen injector (Reesioza 2-Foreign) colestipol 1 gram tablet 1 g PO ONCE 12/03/22 08/14/23 lisinopril 5 mg tablet 5 mg PO BID 12/03/22 08/14/23 omeprazole 20 mg capsule,delayed 20 mg PO .at bedtime 12/03/22 08/14/23 release simvastatin 40 mg tablet 40 mg PO DAILY #90 tab-caps 12/03/22 08/14/23 acetaminophen 500 mg tablet 1,000 mg (2 x 500 mg) PO Q8H pain 06/17/23 08/14/23 #30 tabs tramadol 50 mg tablet 50 mg PO Q8H PRN #9 tabs 06/17/23 08/14/23 Previous Rx's Medication Instructions Recorded levothyroxine 88 mcg tablet 88 mcg PO DAILY #90 tab-caps 01/21/17 ondansetron HCl 4 mg tablet 4 mg PO Q8H #12 tabs 07/01/21 (Zofran) acetaminophen 500 mg tablet 1,000 mg (2 x 500 mg) PO Q8H pain 06/17/23 #30 tabs tramadol 50 mg tablet 50 mg PO Q8H PRN #9 tabs 06/17/23 Allergies Allergy/AdvReac Type Severity Reaction Status Date / Time ibuprofen AdvReac Mild Other (See Verified 08/14/23 22:11 Comment) General Stated Complaint: EyeProblem PARDEEP: 4 Exam Eyes Eyelids: eyelids normal Conjunctivae: conjunctival abnormality Pupils: PERRL EOM: EOM intact bilaterally Other: corneal abrasion Eyes/upper lids images: 2 1. Corneal abrasion Course Vital Signs Vital signs: Vital Signs Temperature 36.8 C 08/14/23 22:05 Pulse 72 08/14/23 22:05 Respiratory Rate 16 08/14/23 22:05 Blood Pressure 161/68 H 08/14/23 22:05 Pulse Oximetry 100 08/14/23 22:05 Temperature 36.8 C 08/14/23 22:22 Temperature Source Oral 08/14/23 22:22 Pulse 72 08/14/23 22:22 Respiratory Rate 16 08/14/23 22:22 Respiratory Effort Normal, Non-Labored 08/14/23 22:10 Blood Pressure 161/68 H 08/14/23 22:22 Blood Pressure Position Sitting 08/14/23 22:22 Pulse Oximetry 100 08/14/23 22:22 Oxygen Delivery Method Room Air 08/14/23 22:22 Oxygen Flow Rate 0 08/14/23 22:05 Pain Level 10 08/14/23 22:22 Medical Decision Making 62-year-old female presenting with likely chemical exposure to left eye. Please see visual acuity documented in triage, corrected with glasses does not wear contacts. Tetracaine was instilled and a 2 mm x 2 mm abrasion was noted which is likely chemical in nature. pH was between 10 and 11 initially. Repeat pH after 1 L was between 8 and 9. Instilling 1 more liter of LR. Poison control consulted and recommendation to irrigate until pH is between 7 and 8. Patient reports marked improvement in symptoms. She still does have conjunctival injection. She will need close outpatient follow-up with [facility] eye care and a referral will be placed. She will instill erythromycin 3 times daily for the next 5 to 7 days. Quality:SDOH Health Related Social Needs: 2 No Data to Display PFSH All Active Problems (Updated 08/14/23 @ 23:17 by JORDY Samaniego) Corneal abrasion (Acute) Chemical exposure of eye (Acute) Chest pain at rest (Acute) Cervical radiculopathy (Acute) Lumbar radiculitis (Acute) Restrictive lung disease (Acute) Obstructive sleep apnea syndrome (Acute) uses C-PAP Increased BMI (Acute) Hypothyroidism (Chronic) Hyperlipidemia (Chronic) Heart murmur (Acute) Headache (Acute) Diabetes mellitus (Chronic) Asthma (Chronic) Lumbosacral spondylosis without myelopathy (Acute) Cubital tunnel syndrome on left (Acute) Medical History Mild persistent asthma Bilateral carpal tunnel syndrome Neuropathy of right ulnar nerve at wrist Athletes foot Edema of both ankles Skin rash Right leg pain Chest pain Paresthesia Right hip pain Flat feet Arm numbness Preventative health care Hyperuricemia Achilles tendinitis, left leg Acid reflux Otalgia of left ear Hypertension Neck pain Hyperlipidemia Restrictive lung disease Polycystic kidney disease Uterine leiomyoma Onychomycosis Back pain Asthma Hypothyroidism Heart murmur Pt. states this was a long time ago, and has never had an issue with it DM (diabetes mellitus) Type II Obstructive sleep apnea Surgical History Hx of removal of cyst chest History of carpal tunnel surgery of right wrist Left carpal tunnel syndrome (02/12/21) s/p ECTR Right carpal tunnel syndrome (02/05/21) s/p ECTR S/P cholecystectomy Colonoscopy - [facility] (09/30/15) Dr Barillas, repeat 10 years Family History Mother Essential hypertension Hyperlipidemia Father Heart disease Hyperlipidemia Stroke Brother Essential hypertension Stroke Grandfather Essential hypertension Stroke Grandfather Essential hypertension Stroke Grandmother Essential hypertension Stroke Grandmother Stroke Brother Stroke Son No problems noted. Daughter No problems noted. Daughter No problems noted. Social History Smoking/Tobacco Use Status: Never Smoking risk assessment performed?: Yes Alcohol Intake: never Drug use: Never Substance use type: does not use Household members: spouse Housing: house Number of Children: 3 What type of physical activity do you participate in: none Do you feel safe at home: Yes Do you feel safe in your relationship?: Yes
--- NOTE | 2023-08-14 23:34 | NUR.NOTE ---
Referral faxed to [facility] to f/u on 08/16/23 for Chemical exposure and corneal abrasion to the left eye. (organic hair dye)Nursing Note:
[2023-08-14] MEDS: Erythromycin Ophth Oint 3.5 GM TUBE OS (23:52)
[2023-08-14] MEDS: Lactated Ringers 1,000 ML 1000 ML IV ×2 (23:54→23:56)
--- NOTE | 2023-08-15 06:54 | NUR.NOTE ---
Accessed Pt chart to obtain phone number. Pt left glasses in the ER.
== END 2023-08-14 23:58 | disposition home or self-care (01) ==
PROVIDERS: Emergency Provider Physician Assistant; PCP Family Medicine
DX: S05.02XA Injury of conjunctiva and corneal abrasion without foreign body, left eye, initial encounter (principal); Z77.098 Contact with and (suspected) exposure to other hazardous, chiefly nonmedicinal, chemicals; X58.XXXA Exposure to other specified factors, initial encounter
CPT/HCPCS: 99283

== ENCOUNTER 2023-09-30 11:55 | Outpatient (REF) | payer OTHER, SELFPAY ==
[2023-09-30 18:27] LABS: COMMENT (LAB VIEW ONLY) < 13.00 mg/dL
== END 2023-09-30 11:56 | disposition home or self-care (01) ==
LOC: NCHCN 11:55
PROVIDERS: PCP Family Medicine; Visit Provider Nurse Practitioner Family
DX: E11.9 Type 2 diabetes mellitus without complications (principal)
CPT/HCPCS: 82043; 82570

== ENCOUNTER 2024-03-29 01:39 | Outpatient (CLI) | payer OTHER, SELFPAY ==
--- NOTE | 2024-03-29 | DI.MAMMO_ITS ---
Exam(s) MAMMO SCREENING EXAM: MAMMO SCREENING CLINICAL HISTORY: SCREENING, Z12.31. TECHNIQUE: Bilateral full field digital CC and MLO mammographic images were obtained with 3D tomosyn thesis and utilizing computer aided detection (CAD). COMPARISON: Prior mammograms were reviewed. FINDINGS: There has been no significant change in the appearance and distribution of the fibroglandular tissue. There are no CAD designations There are no new spiculated masses nor malignant appearing microcalcification groups. Asymmetric density in left breast on the MLO view seen 0.5 cm in from the nipple is unchanged from 20 19. There is no significant architectural distortion nor skin thickening-retraction. IMPRESSION: Stable benign findings. No radiographic evidence of malignancy. BI-RADS Category 2 - Benign Findings Breast Density - Category B - Scattered areas of fibroglandular density Breast density Category C or D implies that the patient has dense breast tissue. Dense breast tissue can make it harder to find cancer on a mammogram. Dense breast tissue is also associated with an incr eased risk of breast cancer. This information about the result of the mammogram report was provided to the patient to raise their awareness. Use this report when you speak with the patient about their risks for breast cancer, which includes their family history. At that time, you may recommend additional screening tests (Ultrasoun d or MRI) as these tests may add significant information. A negative radiographic report should not delay biopsy if a dominant or clinically suspicious mass is present. Up to ten percent of cancers are not identified on mammography. A negative report may reinforce clinical impression. Adenosis and dense breasts may obscure an underlying neoplasm. False positive reports average 6 to 10%. Patient will receive a letter notifying them of these results.
== END 2024-03-29 01:59 ==
LOC: DI 01:39
PROVIDERS: PCP Family Medicine; Visit Provider Nurse Practitioner Family
DX: Z12.31 Encounter for screening mammogram for malignant neoplasm of breast (principal); R92.323 Mammographic fibroglandular density, bilateral breasts; D24.2 Benign neoplasm of left breast
CPT/HCPCS: 77063; 77067

== ENCOUNTER 2024-04-10 15:32 | Outpatient (CLI) | payer OTHER, SELFPAY ==
[2024-04-10 15:41] LABS: Abs Immature Grans 0.01 10^3/uL (0.0-0.06); Absolute Basophil Count 0.06 10^3/uL (0.0-0.2); Absolute Eosinophil Count 0.18 10^3/uL (0.0-0.7); Absolute Monocyte Count 0.45 10^3/uL (0.1-0.8); Basophils % 0.8 %; Eosinophils % 2.4 %; HCT 38.3 % (36.0-46.0); HGB 12.1 g/dL (11.2-15.7); Immature Grans % 0.1 %; Lymphocytes % 50.7 %; MCH 27.7 pg (27.0-33.0); MCHC 31.6 % (32.0-36.0); MCV 88 fL (80-95); MPV 8.8 fL (8.0-11.0); Platelet Count 199 10^3/uL (130-400); RBC 4.37 10^6/uL (3.93-5.22); RDW 12.7 % (11.7-14.6); RDW-SD 41.1 fL
[2024-04-10 16:47] LABS: COMMENT (LAB VIEW ONLY) 22.51 mg/dL; PROTEIN < 6.0 mg/dL
[2024-04-10 16:49] LABS: Bilirubin Negative (Negative); Blood Negative (Negative); Clarity Clear (Clear); Glucose Negative (Negative); Ketones Negative (Negative); Leukocyte Esterase Trace (Negative); Nitrite Negative (Negative); Urobilinogen 0.2 mg/dL (Up to 0.2)
[2024-04-10 16:58] LABS: Anion Gap 8.9 mmol/L (3-11); BUN 14 mg/dL (7-18); CO2 29.1 mmol/L (21.0-32.0); CREATININE 0.9 mg/dL (0.55-1.02); Calcium 9.4 mg/dL (8.5-10.1); Chloride 101 mmol/L (98-107); Estimated GFR 72.73 (mL/min/1.73m2); Glucose 169 mg/dL (74-106); Magnesium 1.4 mg/dL (1.8-2.4); PHOSPHORUS 3.9 mg/dL (2.6-4.7); Potassium 4.2 mmol/L (3.5-5.1); Sodium 139 mmol/L (136-145)
[2024-04-10 16:58] LABS: Bacteria Rare HPF (Negative); C & S Indicated? No; Casts Negative LPF (Negative); Crystals Negative HPF (Negative); Epithelial Cells Negative HPF (Negative); Mucus Negative (Negative); Other Cells Negative (Negative); RBC Negative HPF (0-2); WBC 0-2 HPF (0-5)
== END 2024-04-10 15:33 | disposition home or self-care (01) ==
LOC: LBO 15:34
PROVIDERS: PCP Family Medicine; Visit Provider Nurse Practitioner
DX: Q61.3 Polycystic kidney, unspecified (principal)
CPT/HCPCS: 36415; 80048; 81003; 81015; 82040; 82565; 83735; 84100; 84156; 85025

== ENCOUNTER 2024-05-11 07:36 | Outpatient (CLI) | payer OTHER, SELFPAY ==
--- NOTE | 2024-05-11 06:00 | DI.RAD_ITS ---
Exam(s) XR PAIN CLINIC LUMBAR SP 2V EXAM: XR PAIN CLINIC LUMBAR SP 2V CLINICAL HISTORY: DX: Lumbar Radiculopathy TECHNIQUE: 2D and realtime digital imaging was performed. Radiologist not present. CONTRAST MATERIAL: None. COMPARISON: No exams were available for comparison FINDINGS: Fluoroscopy was provided for pain management therapy. Lumbar spine therapeutic injection Please refer to procedure report or details. Radiation Exposure Index: Ka,r=16.6 mGy IMPRESSION: As above. RADIATION DOSE DELIVERED:
[2024-05-11 08:34] VITALS: BP 124/71; PULSE 82; RESP 20; TEMP 37; O2SAT 100
[2024-05-11 09:14] VITALS: PULSE 77; RESP 18
[2024-05-11 09:15] VITALS: BP 142/84; PULSE 75; PULSE 79; RESP 18
[2024-05-11 09:16] VITALS: BP 140/87; PULSE 78; PULSE 79; RESP 15
[2024-05-11 09:20] VITALS: PULSE 81; RESP 22
[2024-05-11 09:24] VITALS: BP 133/88; PULSE 79
[2024-05-11] MEDS: Epidural Tray 1 EACH MC (09:28)
[2024-05-11] MEDS: Omnipaque 240 MG/ML 50 ML BTL IJ (09:29)
[2024-05-11] MEDS: methylPREDNISolone ACETATE 80 MG/ML VIAL IJ (09:29)
--- NOTE | 2024-05-11 09:58 | PDOC.PAIN_ITS ---
Date of service: 05/11/24 Time of Service: 09:58 Pain Managment Procedure Note Procedure Note Procedure Note: PROCEDURE NOTE LUMBAR EPIDURAL STEROID INJECTION Date of Service: May 11, 2024 Patient:Polina Buck? Provider: Elgin Tello DO, MPH Polina Montero has been referred to the [facility] for a lumbar epidural steroid injection. Pre-operative diagnosis: Lumbosacral Radiculopathy ICD-10 M54.16 Post-operative diagnosis: Same Pre-Procedure Pain: VAS= 10 /10 Comments: She had >4 months of >50% relief with her last LESI. She was able to cook and clean and take a trip to see her daughter in [place]. Polina was interviewed and the medical record was reviewed.? There were no medical, pharmacologic, radiographic or other structural contraindications to attempting fluoroscopically guided Lumbar epidural steroid injection.? Risks, potential side effects, indications, and potential benefits of the procedure were reviewed with Polina.? Questions and concerns were addressed.? After it was clear that Polina was fully informed about the procedure, the printed consent form was signed by the patient and myself.? Polina was placed in the prone position on the fluoroscopy table and automated blood pressure cuff and pulse oximeter applied. The skin entry point for entering/approaching the epidural space for the lumbar epidural steroid injection was marked. Following thorough chlorhexadine preparation of the skin and draping and 1% lidocaine infiltration of the skin entry point and subcutaneous tissues, an 18 gauge Touhy needle was placed and advanced under fluoroscopic guidance and with loss of resistance technique into the L5-S1 epidural space. Needle tip placement and depth were aided and confirmed by fluoroscopy. There was no paresthesia or return of blood or CSF through the needle. 1 mls of Omnipaque 240 was injected with clear epidural spread confirmed with fluoroscopy. 80 mg of Depo-Medrol was? injected. This was followed by 1 ml of preservative-free normal saline to flush the steroid out of the needle. There was no unusual discomfort expressed by Polina. The needle was withdrawn without difficulty. (49 mls of Omnipaque was wasted) Polina was observed and was without hemodynamic, neurologic, or allergic reactions.? Fluoroscopic images were digitally archived. Polina's vital signs were stable throughout the procedure and were as recorded in nursing records. Follow up plans and appointments were discussed with Polina. Post procedure instruction was given as documented in nursing records and having met discharge criteria Polina was discharged from the [facility]. COMMENTS: No apparent complications. Post-procedure pain: VAS= 0/10. Polina to contact [facility] as needed. If at least 50% improvement in pain and/or function for at least 3 months is achieved, this procedure can be repeated. I personally performed this entire procedure. ELGIN TELLO DO, MPH ABPMR-subspecialty board certification in Pain Medicine [facility] Coding Conscious Sedation used for procedure: No CPT Codes: Inj Spine L/S w/Imaging - [id number] ([id number] ~G) Additional Codes: Date of Service ([id number]) Date of service: 05/11/24
== END 2024-05-11 07:37 | disposition home or self-care (01) ==
LOC: PC 07:36
PROVIDERS: PCP Family Medicine; Visit Provider Preventive Medicine Occupational Medicine
DX: M54.16 Radiculopathy, lumbar region (principal)
CPT/HCPCS: 62323; 72100; J1010; Q9967

== ENCOUNTER 2024-07-13 12:48 | Outpatient (REF) | payer OTHER, SELFPAY ==
[2024-07-13 16:36] LABS: Hemoglobin A1C 6.9 % (<5.7)
[2024-07-13 16:45] LABS: ALT 29 U/L (14-59); AST 26 U/L (15-37); Albumin 4.1 g/dL (3.4-5.0); Alkaline Phosphatase 47 U/L (46-116); Anion Gap 8.5 mmol/L (3-11); BUN 13 mg/dL (7-18); Bilirubin, Total 0.3 mg/dL (0.2-1.0); CO2 29.5 mmol/L (21.0-32.0); CREATININE 0.8 mg/dL (0.55-1.02); Calcium 9.4 mg/dL (8.5-10.1); Chloride 101 mmol/L (98-107); Estimated GFR 83.78 (mL/min/1.73m2); Glucose 137 mg/dL (74-106); Magnesium 1.5 mg/dL (1.8-2.4); Potassium 4.4 mmol/L (3.5-5.1); Sodium 139 mmol/L (136-145); TSH 0.18 uIU/mL (0.36-3.74); Total Protein 7.3 g/dL (6.4-8.2)
[2024-07-14 10:16] LABS: HIV-1/2 Ag & Ab Screen Negative (Negative)
[2024-07-14 10:25] LABS: Hepatitis C Ab w Rflx HCV PCR Negative (Negative)
== END 2024-07-13 12:49 | disposition home or self-care (01) ==
LOC: NCHCN 12:48
PROVIDERS: PCP Family Medicine; Visit Provider Nurse Practitioner Family
DX: E03.9 Hypothyroidism, unspecified (principal); E11.9 Type 2 diabetes mellitus without complications; Z00.00 Encounter for general adult medical examination without abnormal findings
CPT/HCPCS: 80053; 86803; 87389; 83036; 83735; 84443

== ENCOUNTER 2024-09-10 08:48 | Emergency (ER) | payer OTHER, SELFPAY ==
[2024-09-10] VITALS (17 sets, daily range): BP systolic 134–146; BP diastolic 58–65; PULSE 64–82; RESP 14–21; TEMP 36.6; O2SAT 98–100
--- NOTE | 2024-09-10 08:45 | RT.EKG_ITS ---
APPROVED REPORT Exam: Resting ECG Reason for Exam: Dizzy Patient Location: E HR:77 bpm ECG Measurements Heart Rate 77 AXIS NV 178 P 39 QRSd 80 QRS 11 QT 385 T 63 QTc 435 Conclusion Sinus rhythm...normal P axis, V-rate 60- 99
--- NOTE | 2024-09-10 08:58 | DI.CT_ITS ---
Exam(s) CT HEAD WO EXAM: CT HEAD WO CLINICAL HISTORY: Dizziness, RODRIGUEZ. TECHNIQUE: Imaging Protocol: Axial computed tomography images with coronal and sagittal reformatted images were created and reviewed COMPARISON: No exams were available for comparison FINDINGS: Ventricles and Extra axial spaces: Normal in size and morphology for the patient's age. Hemorrhage: None. Cerebral parenchyma: No evidence of acute infarct or mass. Midline shift: None. Brainstem/Cerebellum: Normal. Bones: No skull or facial fractures. Visualized Paranasal sinuses:Clear. Mastoids: Clear. Soft Tissues: Unremarkable. ORBITS: Unremarkable. PITUITARY: Not enlarged. IMPRESSION: No acute intracranial process. The preliminary [facility] report was reviewed. RADIATION DOSE DELIVERED: Total DLP DATA REPOSITORY: All CT scans at this facility are submitted to the National Radiology Data Registry (NRDR) Dose Index Registry (DIR) with the [employer] ([employer]). RADIATION OPTIMIZATION: All CT scans at this facility use at least one of these dose optimization techniques: automated exposure control; mA and/or kV adjustment per patient size (includes targeted exams where dose is matched to clinical indication); or iterative reconstruction.
--- NOTE | 2024-09-10 09:00 | W.ED.GENAD ---
Discharge Plan Disposition Patient Disposition: Home Condition: Stable Discharge Details Clinical Impression: Hypomagnesemia, Dizziness Primary Care Provider: Alis Ghosh V ED Provider: Arlene Castro Home Meds and New Rx's Prescriptions: New meclizine 12.5 mg tablet 12.5 mg PO BID PRN (Reason: dizziness) Qty: 10 0RF Rx Instructions: Please take 1 tablet by mouth twice daily as needed for dizziness. This may make you sleepy. magnesium oxide 400 mg (241.3 mg magnesium) tablet 400 mg PO DAILY 5 Days Qty: 7 0RF Rx Instructions: Take 1 tablet by mouth for the next 3 to 5 days No Action (DME) blood-glucose meter [ReliOn Prime Meter] Misc MISCELLANEOUS (DME) ReliOn Prime Test Strips Strip MISCELLANEOUS (DME) lancets [ReliOn Ultra Thin Plus Lancets] Misc MISCELLANEOUS albuterol sulfate [ProAir HFA] 90 mcg/actuation Hfa Aerosol Inhaler 2 puff INHALATION Q6H PRN metformin 500 mg Tablet Extended Release 24 Hr 1,000 mg PO BID (DME) pen needle, diabetic [Pen Needle] 31 gauge x 3/16 Needle MISCELLANEOUS diclofenac sodium [Voltaren] 1 % Gel 2 g TOPICAL TID PRN budesonide-formoterol [Symbicort] 80-4.5 mcg/actuation HFA aerosol inhaler 2 puff inhalation BID Levemir FlexTouch U100 Insulin 100 unit/mL (3 mL) insulin pen 58 unit subcut QHS ascorbate calcium (vitamin C) 500 mg tablet 500 mg PO DAILY ciclopirox 0.77 % cream 1 applic topical BID PRN gabapentin 300 mg capsule 300 mg PO BID nitroglycerin 0.4 mg tablet, sublingual 0.4 mg sublingual Q5M PRN Rx Instructions: do not exceed 3 doses per episode magnesium oxide 250 mg magnesium tablet 250 mg PO BID liraglutide [Victoza 2-Foreign] 0.6 mg/0.1 mL (18 mg/3 mL) pen injector 0.6 mg subcut DAILY fluticasone propionate [Flovent HFA] 110 mcg/actuation HFA aerosol inhaler 1 puff IH BID lisinopril 5 mg tablet 5 mg PO BID Patient Comments: TAKE 2 TABLETS BY MOUTH IN THE MORNING AND 1 AT BEDTIME DIRECTED colestipol 1 gram tablet 1 g PO ONCE Rx Instructions: take 1-2 tablets omeprazole 20 mg capsule,delayed release(DR/EC) 20 mg PO .at bedtime AEROCHAMBER 1 EACH spacer 1 ea Miscellaneous PRN Qty: 1 0RF (DME) OneTouch Ultra Test 1 EACH strip 1 strip Miscellaneous DAILY Qty: 100 Rx Instructions: DX:250.0 ONE TOUCH ULTRA MINI levothyroxine 88 MCG tablet 88 mcg PO DAILY Qty: 90 3RF fluticasone propionate [Flonase Allergy Relief] 50 mcg/actuation spray,suspension 1 spray NS DAILY Qty: 1 Patient Comments: Each Nostril simvastatin 40 mg tablet 40 mg PO DAILY Qty: 90 Rx Instructions: Take 1.5 tablets by mouth once a day allopurinol 100 mg Tablet 100 mg PO DAILY ondansetron HCl [Zofran] 4 mg tablet 4 mg PO Q8H Qty: 12 0RF tramadol 50 mg tablet 50 mg PO Q8H PRNQty: 9 0RF acetaminophen 500 mg tablet 1,000 mg PO Q8H Qty: 30 2RF Discharge Instructions Instructions: Dizziness, Adult ED, Hypomagnesemia Additional Instructions: At this time there is no evidence that you are having a stroke or heart attack. Please discuss your TSH level which was 0.26 with your PCP and your magnesium level which was slightly low. You were given a medication that we will help with dizziness called meclizine. A prescription for magnesium supplement was sent to the pharmacy on file, please take this for at least 3 days as directed. Follow up with primary care provider in 5-7 days. Return to ED sooner if any worsening dizziness not relieved by the above medications, worsening headache, weakness on one side of your body or the other visual disturbances or concerns. Thank you for allowing us to care for you today. Referrals: Alis Ghosh MD [Primary Care Provider, Medicine] - 1 week Referral Note: ER follow-up, call for sooner appointment Clinical Impression: Dizziness; Hypomagnesemia Discharge Data Discharge Date/Time-TO BE ENTERED AT DEPARTURE: 09/10/24 11:38 HPI General Mode of arrival: ambulatory. Date/Time Provider Initiated Documentation: 09/10/24 08:51. Limitations to Documentation: no limitations. Information obtained by: patient, RN notes reviewed and old records reviewed. HPI Narrative: 63-year-old female presents to the ER with a chief complaint of dizziness and lightheadedness that began around 2 AM this morning after getting up to the bathroom. Reports that she had to hold onto something. She describes it as lightheadedness. Denies any room spinning. She does have a frontal headache. And is also endorsing nausea. No gross motor or focal neurodeficits noted on initial exam, she is a diabetic has a history of a heart murmur, hypothyroidism, hyperlipidemia, asthma and obstructive sleep apnea. She is ANO x 4 and is conversive and pleasant. Vital signs are within normal limits. She did check her BGL this morning it was 150. She is insulin-dependent. Denies any vomiting diarrhea or any other associated symptoms. Related Data Home Medications ?Medication ?Instructions ?Recorded ?Confirmed blood sugar diagnostic (OneTouch #100 strips 08/20/14 12/23/22 Ultra Test strips) levothyroxine 88 mcg tablet 88 mcg PO DAILY #90 tab-caps 01/21/17 05/11/24 fluticasone propionate 110 1 puff inhalation BID 03/24/18 05/11/24 mcg/actuation HFA aerosol inhaler (Flovent HFA) fluticasone propionate 50 1 spray NS DAILY #1 g 03/24/18 05/11/24 mcg/actuation nasal spray,suspension (Flonase Allergy Relief) allopurinol 100 mg tablet 100 mg PO DAILY 12/06/18 05/11/24 albuterol sulfate 90 mcg/actuation 2 puff inhalation Q6H PRN 07/18/19 05/11/24 aerosol inhaler (ProAir HFA) blood sugar diagnostic (ReliOn 07/18/19 12/23/22 Prime Test Strips) blood-glucose meter (ReliOn Prime 07/18/19 12/23/22 Meter) lancets (ReliOn Ultra Thin Plus 07/18/19 12/23/22 Lancets) metformin 500 mg tablet,extended 1,000 mg PO BID 07/18/19 05/11/24 release 24 hr pen needle, diabetic 31 gauge x 07/18/19 12/23/22 3/16 (Pen Needle) diclofenac sodium 1 % topical gel 2 g topical TID PRN 03/01/20 05/11/24 (Voltaren) budesonide-formoterol HFA 80 2 puff inhalation BID 03/11/20 05/11/24 mcg-4.5 mcg/actuation aerosol inhaler (Symbicort) ascorbate calcium (vitamin C) 500 500 mg PO DAILY 06/17/20 05/11/24 mg tablet insulin detemir U-100 100 unit/mL 58 unit subcut QHS 06/17/20 05/11/24 (3 mL) subcutaneous pen (Levemir FlexTouch U-100 Insulin) ondansetron HCl 4 mg tablet 4 mg PO Q8H #12 tabs 07/01/21 05/11/24 (Zofran) ciclopirox 0.77 % topical cream 1 applic topical BID PRN 04/28/22 05/11/24 gabapentin 300 mg capsule 300 mg PO BID 04/28/22 05/11/24 magnesium oxide 250 mg PO BID 04/28/22 05/11/24 nitroglycerin 0.4 mg sublingual 0.4 mg sublingual Q5M PRN 04/28/22 05/11/24 tablet liraglutide 0.6 mg/0.1 mL (18 mg/3 0.6 mg subcut DAILY 04/29/22 05/11/24 mL) subcutaneous pen injector (Tripbodtoza 2-Foreign) colestipol 1 gram tablet 1 g PO ONCE 12/03/22 05/11/24 lisinopril 5 mg tablet 5 mg PO BID 12/03/22 05/11/24 omeprazole 20 mg capsule,delayed 20 mg PO .at bedtime 12/03/22 05/11/24 release simvastatin 40 mg tablet 40 mg PO DAILY #90 tab-caps 12/03/22 05/11/24 acetaminophen 500 mg tablet 1,000 mg (2 x 500 mg) PO Q8H pain 06/17/23 05/11/24 #30 tabs tramadol 50 mg tablet 50 mg PO Q8H PRN #9 tabs 06/17/23 05/11/24 magnesium oxide 400 mg (241.3 mg 400 mg PO DAILY Hypomagnesemia 5 09/10/24 magnesium) tablet days #7 tabs meclizine 12.5 mg tablet 12.5 mg PO BID PRN dizziness #10 09/10/24 tabs Previous Rx's ?Medication ?Instructions ?Recorded levothyroxine 88 mcg tablet 88 mcg PO DAILY #90 tab-caps 01/21/17 ondansetron HCl 4 mg tablet 4 mg PO Q8H #12 tabs 07/01/21 (Zofran) acetaminophen 500 mg tablet 1,000 mg (2 x 500 mg) PO Q8H pain 06/17/23 #30 tabs tramadol 50 mg tablet 50 mg PO Q8H PRN #9 tabs 06/17/23 magnesium oxide 400 mg (241.3 mg 400 mg PO DAILY Hypomagnesemia 5 09/10/24 magnesium) tablet days #7 tabs meclizine 12.5 mg tablet 12.5 mg PO BID PRN dizziness #10 09/10/24 tabs Allergies Allergy/AdvReac Type Severity Reaction Status Date / Time ibuprofen AdvReac Mild Other (See Verified 05/11/24 08:16 Comment) General Stated Complaint: Dizzy/Sync PARDEEP: 3 Review of Systems All systems reviewed & are unremarkable except as noted in HPI and below Constitutional Constitutional: Reports as per HPI and Reports headache(s) ENT Ears, Nose, Mouth, and Throat: Reports dizziness and Reports headache(s) Gastrointestinal Gastrointestinal: Denies diarrhea, Reports nausea and Denies vomiting Neurologic Neurologic: Reports as per HPI, Denies confusion, Reports dizziness, Reports headache(s) and Denies localized weakness Psychiatric Psychiatric: Denies confusion Exam Narrative Exam Narrative: Constitutional: Alert and oriented x3. Appears stated age. Normal body habitus. Head: Normocephalic, no trauma. Eyes: Pupils PERRL, Red reflex noted, EOM's intact. Eyelids symmetrical without lesions, discharge, or swelling. ENT: Bilateral TM's WNL, External ear normal to inspection, no mastoid TTP, swelling, or erythema, Nasal turbinates WNL, no nasal discharge. Normal dentition, Posterior pharynx WNL, no exudate. Chest: RRR, Normal S1, S2, distal pulses intact. Resp: Lungs clear to auscultation bilaterally, no wheezes, rales, or rhonchi. Abdomen: Soft, non-distended, Normoactive bowel sounds all 4 quads. Musculoskeletal: Normal gait, Moves all 4 extremities without difficulty. Skin: No suspicious rashes or lesions. Capillary refill less than 2 sec. Neurologic: Cranial nerves II-XII intact. Alert and oriented x 3. Motor: No deficits noted. Sensory: Intact bilaterally all 4 extremities. Hematologic/Lymphatic: No ecchymosis, no lymphadenopathy. Course Vital Signs Vital signs: Vital Signs Temperature 36.6 C 09/10/24 08:52 Pulse 75 09/10/24 08:52 Respiratory Rate 18 09/10/24 08:52 Blood Pressure 146/58 H 09/10/24 08:52 Pulse Oximetry 100 09/10/24 08:52 Temperature 36.6 C 09/10/24 08:52 Temperature Source Skin 09/10/24 08:52 Pulse 75 09/10/24 08:52 Respiratory Rate 18 09/10/24 08:52 Blood Pressure 146/58 H 09/10/24 08:52 Blood Pressure Position Sitting 09/10/24 08:52 Pulse Oximetry 100 09/10/24 08:52 Oxygen Delivery Method Room Air 09/10/24 08:52 Oxygen Flow Rate 0 09/10/24 08:52 Pain Level 0 09/10/24 08:52 Medical Decision Making 63-year-old female presents to the ER with a chief complaint of dizziness and lightheadedness that began around 2 AM this morning after getting up to the bathroom. Reports that she had to hold onto something. She describes it as lightheadedness. Denies any room spinning. She does have a frontal headache. And is also endorsing nausea. No gross motor or focal neurodeficits noted on initial exam, she is a diabetic has a history of a heart murmur, hypothyroidism, hyperlipidemia, asthma and obstructive sleep apnea. She is ANO x 4 and is conversive and pleasant. Vital signs are within normal limits. She did check her BGL this morning it was 150. She is insulin-dependent. Denies any vomiting diarrhea or any other associated symptoms. Initial workup ordered including CBC CMP serial troponins, TSH with refractory T4, BGL and EKG obtained by ED industrial staff nurse upon arrival. Normal sinus rhythm noted. Head CT without contrast ordered. Differential diagnosis includes but not limited to benign positional vertigo, dehydration, UTI, inner ear disorder, metabolic disorder, electrolyte abnormality ,CVA, CBC largely within normal limits, sodium potassium within normal limits, glucose 162 magnesium slightly low at 1.6 initial troponin is within normal limits I do not anticipate needing a 3-hour troponin. TSH is low at 0.26 T4 is pending. I will defer this to the primary care provider and discussed this with the patient. CT head without contrast within normal limits, patient has been ambulatory with assistance of to the bathroom. Will give meclizine 12.5mg PO, Toradol 15mg IV, Mag Oxide 400mg PO. Reevaluation. On patient reevaluation she feels much better she has ambulated to back from the bathroom with little assistance. I discussed her lab results, imaging results and follow-up care with her she verbalized understanding. Will send home a few days of meclizine and magnesium supplements. She does have an upcoming PCP appointment on October 09. Patient discharged in hemodynamically stable condition, remained alert and oriented x 4 throughout the remainder of her stay. All her questions were answered to the best my ability. This text was generated using [employer] system, please disregard any oddities of phrase or misspellings. Medical Records Medical records reviewed: Yes I reviewed the patient's medical records. Imaging Data Radiologic Study: Imaging: CT Scan Radiologist's impression: PROCEDURE INFORMATION: Exam: CT Head Without Contrast Exam date and time: 09/10/2024 9:12 AM Age: 63 years old Clinical indication: Other: Dizziness, RODRIGUEZ TECHNIQUE: Imaging protocol: Computed tomography of the head without contrast. COMPARISON: MR CERVICAL SPINE WO 07/24/2019 3:42 PM FINDINGS: Brain: Normal. No hemorrhage. Unremarkable white matter. No mass effect. Cerebral ventricles: No ventriculomegaly. Paranasal sinuses: Visualized sinuses are unremarkable. No fluid levels. Mastoid air cells: Visualized mastoid air cells are well aerated. Bones: Unremarkable. No acute fracture. Soft tissues: Unremarkable. IMPRESSION: No acute intracranial abnormality. Thank you for allowing us to participate in the care of your patient. Dictated and Authenticated by: Caty Bueno MD Lab Data Lab results reviewed: Yes I reviewed the patient's lab results. Labs: Laboratory Tests Range/Units 09/10/24 09/10/24 09/10/24 09:05 09:10 10:05 WBC (4.4-10.8) 10^3/uL 5.55 RBC (3.93-5.22) 10^6/uL 4.03 Hgb (11.2-15.7) g/dL 11.3 Hct (36.0-46.0) % 35.2 L MCV (80-95) fL 87 MCH (27.0-33.0) pg 28.0 MCHC (32.0-36.0) % 32.1 RDW (11.7-14.6) % 13.0 Plt Count (130-400) 10^3/uL 197 MPV (8.0-11.0) fL 8.9 Immature Gran % % 0.2 Neutrophils % % 46.6 Lymphocytes % % 44.0 Monocytes % % 5.2 Eosinophils % % 2.7 Basophils % % 1.3 Nucleated RBC % (0.0-0.3) % 0.0 Absolute Neutrophils (1.2-6.7) 10^3/uL 2.59 Absolute Lymphocytes (1.2-3.4) 10^3/uL 2.44 Absolute Monocytes (0.1-0.8) 10^3/uL 0.29 Absolute Eosinophils (0.0-0.7) 10^3/uL 0.15 Absolute Basophils (0.0-0.2) 10^3/uL 0.07 PT (9.1-11.1) sec 10.3 INR (0.9-1.1) 1.0 Sodium (136-145) mmol/L 137 Potassium (3.5-5.1) mmol/L 4.2 Chloride (98-107) mmol/L 100 Carbon Dioxide (21.0-32.0) mmol/L 28.7 Anion Gap (3-11) mmol/L 8.3 BUN (7-18) mg/dL 14 Creatinine (0.55-1.02) mg/dL 0.8 Est GFR (CKD-EPI 2020) (mL/min/1.73m2) 83.78 Glucose (74-106) mg/dL 162 H Calcium (8.5-10.1) mg/dL 8.9 Magnesium (1.8-2.4) mg/dL 1.6 L Total Bilirubin (0.2-1.0) mg/dL 0.5 AST (15-37) U/L 22 ALT (14-59) U/L 28 Alkaline Phosphatase (46-116) U/L 41 L Troponin I (<or=51) ng/L 5 5 Total Protein (6.4-8.2) g/dL 7.4 Albumin (3.4-5.0) g/dL 3.9 TSH (0.36-3.74) uIU/mL 0.26 L Free T4 (0.76-1.46) ng/dL 1.39 Urine Color (Yellow) Yellow Urine Clarity (Clear) Clear Urine pH (5-8) 7.0 Ur Specific [place] (1.005-1.025) 1.010 Urine Protein (Neg-Trace) mg/dL Negative Urine Ketones (Negative) mg/dL Negative Urine Blood (Negative) Negative Urine Nitrite (Negative) Negative Urine Bilirubin (Negative) Negative Urine Urobilinogen (Up to 0.2) mg/dL 0.2 Ur Leukocyte Esterase (Negative) Negative Urine Glucose (Negative) mg/dL Negative Range/Units 09/10/24 11:58 WBC (4.4-10.8) 10^3/uL RBC (3.93-5.22) 10^6/uL Hgb (11.2-15.7) g/dL Hct (36.0-46.0) % MCV (80-95) fL MCH (27.0-33.0) pg MCHC (32.0-36.0) % RDW (11.7-14.6) % Plt Count (130-400) 10^3/uL MPV (8.0-11.0) fL Immature Gran % % Neutrophils % % Lymphocytes % % Monocytes % % Eosinophils % % Basophils % % Nucleated RBC % (0.0-0.3) % Absolute Neutrophils (1.2-6.7) 10^3/uL Absolute Lymphocytes (1.2-3.4) 10^3/uL Absolute Monocytes (0.1-0.8) 10^3/uL Absolute Eosinophils (0.0-0.7) 10^3/uL Absolute Basophils (0.0-0.2) 10^3/uL PT (9.1-11.1) sec INR (0.9-1.1) Sodium (136-145) mmol/L Potassium (3.5-5.1) mmol/L Chloride (98-107) mmol/L Carbon Dioxide (21.0-32.0) mmol/L Anion Gap (3-11) mmol/L BUN (7-18) mg/dL Creatinine (0.55-1.02) mg/dL Est GFR (CKD-EPI 2020) (mL/min/1.73m2) Glucose (74-106) mg/dL Calcium (8.5-10.1) mg/dL Magnesium (1.8-2.4) mg/dL Total Bilirubin (0.2-1.0) mg/dL AST (15-37) U/L ALT (14-59) U/L Alkaline Phosphatase (46-116) U/L Troponin I (<or=51) ng/L Cancelled Total Protein (6.4-8.2) g/dL Albumin (3.4-5.0) g/dL TSH (0.36-3.74) uIU/mL Free T4 (0.76-1.46) ng/dL Urine Color (Yellow) Urine Clarity (Clear) Urine pH (5-8) Ur Specific [place] (1.005-1.025) Urine Protein (Neg-Trace) mg/dL Urine Ketones (Negative) mg/dL Urine Blood (Negative) Urine Nitrite (Negative) Urine Bilirubin (Negative) Urine Urobilinogen (Up to 0.2) mg/dL Ur Leukocyte Esterase (Negative) Urine Glucose (Negative) mg/dL PFSH All Active Problems (Updated 09/10/24 @ 11:00 by Arlene Castro NP) Dizziness (Acute) Hypomagnesemia (Acute) Chest pain at rest (Acute) Cervical radiculopathy (Acute) Lumbar radiculitis (Acute) Restrictive lung disease (Acute) Obstructive sleep apnea syndrome (Acute) uses C-PAP Increased BMI (Acute) Hypothyroidism (Chronic) Hyperlipidemia (Chronic) Heart murmur (Acute) Headache (Acute) Diabetes mellitus (Chronic) Asthma (Chronic) Lumbosacral spondylosis without myelopathy (Acute) Cubital tunnel syndrome on left (Acute) Medical History Mild persistent asthma Bilateral carpal tunnel syndrome Neuropathy of right ulnar nerve at wrist Athletes foot Edema of both ankles Skin rash Right leg pain Chest pain Paresthesia Right hip pain Flat feet Arm numbness Preventative health care Hyperuricemia Achilles tendinitis, left leg Acid reflux Otalgia of left ear Hypertension Neck pain Hyperlipidemia Restrictive lung disease Polycystic kidney disease Uterine leiomyoma Onychomycosis Back pain Asthma Hypothyroidism Heart murmur Pt. states this was a long time ago, and has never had an issue with it DM (diabetes mellitus) Type II Obstructive sleep apnea Surgical History Hx of removal of cyst chest History of carpal tunnel surgery of right wrist Left carpal tunnel syndrome (02/12/21) s/p ECTR Right carpal tunnel syndrome (02/05/21) s/p ECTR S/P cholecystectomy Colonoscopy - MAC (09/30/15) Dr Barillas, repeat 10 years Family History Mother Essential hypertension Hyperlipidemia Father Heart disease Hyperlipidemia Stroke Brother Essential hypertension Stroke Grandfather Essential hypertension Stroke Grandfather Essential hypertension Stroke Grandmother Essential hypertension Stroke Grandmother Stroke Brother Stroke Son No problems noted. Daughter No problems noted. Daughter No problems noted. Social History Smoking/Tobacco Use Status: Never Smoking risk assessment performed?: Yes Alcohol Intake: never Drug use: Never Substance use type: does not use Household members: spouse Housing: house Number of Children: 3 What type of physical activity do you participate in: none Do you feel safe at home: Yes Do you feel safe in your relationship?: Yes
[2024-09-10 09:20] LABS: Abs Immature Grans 0.01 10^3/uL (0.0-0.06); HCT 35.2 % (36.0-46.0); HGB 11.3 g/dL (11.2-15.7); Immature Grans % 0.2 %; MCH 28.0 pg (27.0-33.0); MCHC 32.1 % (32.0-36.0); MCV 87 fL (80-95); MPV 8.9 fL (8.0-11.0); Platelet Count 197 10^3/uL (130-400); RBC 4.03 10^6/uL (3.93-5.22); RDW 13.0 % (11.7-14.6); RDW-SD 41.5 fL; WBC 5.55 10^3/uL (4.4-10.8)
[2024-09-10 09:30] LABS: Glucose Negative (Negative)
[2024-09-10 09:34] LABS: INR 1.0 (0.9-1.1); Prothrombin Time 10.3 sec (9.1-11.1)
[2024-09-10] MEDS: Ondansetron 4 MG/2 ML VIAL IVP (09:39)
[2024-09-10] MEDS: Normal Saline 1,000 ML 1000 ML IV (09:39)
--- NOTE | 2024-09-10 09:41 | DI.VRAD_ITS ---
PROCEDURE INFORMATION: Exam: CT Head Without Contrast Exam date and time: 09/10/2024 9:12 AM Age: 63 years old Clinical indication: Other: Dizziness, RODRIGUEZ TECHNIQUE: Imaging protocol: Computed tomography of the head without contrast. COMPARISON: MR CERVICAL SPINE WO 07/24/2019 3:42 PM FINDINGS: Brain: Normal. No hemorrhage. Unremarkable white matter. No mass effect. Cerebral ventricles: No ventriculomegaly. Paranasal sinuses: Visualized sinuses are unremarkable. No fluid levels. Mastoid air cells: Visualized mastoid air cells are well aerated. Bones: Unremarkable. No acute fracture. Soft tissues: Unremarkable. IMPRESSION: No acute intracranial abnormality. Dictated and Authenticated by: Caty Bueno MD. Orderin Matthew Jacobs MD
[2024-09-10 09:49] LABS: ALT 28 U/L (14-59); AST 22 U/L (15-37); Albumin 3.9 g/dL (3.4-5.0); Alkaline Phosphatase 41 U/L (46-116); Anion Gap 8.3 mmol/L (3-11); BUN 14 mg/dL (7-18); Bilirubin, Total 0.5 mg/dL (0.2-1.0); CO2 28.7 mmol/L (21.0-32.0); Calcium 8.9 mg/dL (8.5-10.1); Chloride 100 mmol/L (98-107); Estimated GFR 83.78 (mL/min/1.73m2); Glucose 162 mg/dL (74-106); Magnesium 1.6 mg/dL (1.8-2.4); Potassium 4.2 mmol/L (3.5-5.1); Sodium 137 mmol/L (136-145); TSH (W/Ref FT4) 0.26 uIU/mL (0.36-3.74); Total Protein 7.4 g/dL (6.4-8.2); Troponin I 5 ng/L (<or=51)
[2024-09-10] MEDS: Ketorolac 15 MG/ML VIAL IVP (10:30)
[2024-09-10] MEDS: Meclizine 12.5 MG TAB PO (10:30)
[2024-09-10] MEDS: Magnesium Oxide 400 MG TAB PO (10:30)
[2024-09-10 10:40] LABS: Troponin I 5 ng/L (<or=51)
== END 2024-09-10 11:38 | disposition home or self-care (01) ==
PROVIDERS: Emergency Provider Registered Nurse Emergency; PCP Family Medicine
DX: R42 Dizziness and giddiness (principal); E83.42 Hypomagnesemia; E11.9 Type 2 diabetes mellitus without complications; R51.9 Headache, unspecified
CPT/HCPCS: 99285; 99284; 36415; 36416; 82962; 96374; 96375; 80053; 93005; 96361; 70450; 81003; 83735; 84439; 84443; 84484; 85025; 85610; 93010; J1885; J2405

== ENCOUNTER 2024-10-06 18:36 | Outpatient (REF) | payer OTHER, SELFPAY ==
[2024-10-06 16:34] LABS: COMMENT (LAB VIEW ONLY) 14.27 mg/dL; Microalb ug/mg Crea 63.8 ug/mg Cr
== END 2024-10-06 18:37 | disposition home or self-care (01) ==
LOC: NCHCN 18:36
PROVIDERS: PCP Family Medicine; Visit Provider Nurse Practitioner Family
DX: E11.9 Type 2 diabetes mellitus without complications (principal)
CPT/HCPCS: 82043; 82570

== ENCOUNTER 2024-11-09 10:30 | Outpatient (CLI) | payer OTHER, SELFPAY ==
--- NOTE | 2024-11-09 06:00 | DI.RAD_ITS ---
Exam(s) XR PAIN CLINIC LUMBAR SP 2V EXAM: XR PAIN CLINIC LUMBAR SP 2V CLINICAL HISTORY: Dx: Lumbar Radiculopathy. TECHNIQUE: Fluoroscopy was provided for the referring physician for guidance with performing pain clinic injection procedure. COMPARISON: No exams were available for comparison FINDINGS: Please see procedure note for details. Fluoro time: 20.9 seconds RADIATION DOSE DELIVERED: Ka,r=7.3 mGy
[2024-11-09 11:05] VITALS: BP 130/77; PULSE 80; RESP 18; TEMP 36.2; O2SAT 99
[2024-11-09 11:37] VITALS: PULSE 74; PULSE 75; RESP 17; O2SAT 99
[2024-11-09 11:38] VITALS: BP 118/62; PULSE 76; PULSE 77; RESP 16; O2SAT 100
[2024-11-09 11:40] VITALS: PULSE 76; RESP 16; O2SAT 100
[2024-11-09 11:45] VITALS: BP 128/73; PULSE 78; RESP 17; O2SAT 100
--- NOTE | 2024-11-09 11:48 | PDOC.PAIN ---
Date of service: 11/09/24 Time of Service: 11:48 Pain Managment Procedure Note Procedure Note Procedure Note: PROCEDURE NOTE LUMBAR EPIDURAL STEROID INJECTION Date of Service: November 09, 2024 Patient:Polina Buck? Provider: Elgin Tello DO, MPH Polina Montero has been referred to the [facility] for a lumbar epidural steroid injection. Pre-operative diagnosis: Lumbosacral Radiculopathy ICD-10 M54.16 Post-operative diagnosis: Same Pre-Procedure Pain: VAS= 9 /10 Comments: She had her last LESI on 05/11/24 and had >50% pain relief for 4 months. Her pain has returned. Her A1c yesterday was 6.3. Polina was interviewed and the medical record was reviewed.? There were no medical, pharmacologic, radiographic or other structural contraindications to attempting fluoroscopically guided Lumbar epidural steroid injection.? Risks, potential side effects, indications, and potential benefits of the procedure were reviewed with Polina.? Questions and concerns were addressed.? After it was clear that Polina was fully informed about the procedure, the printed consent form was signed by the patient and myself.? Polina was placed in the prone position on the fluoroscopy table and automated blood pressure cuff and pulse oximeter applied. The skin entry point for entering/approaching the epidural space for the lumbar epidural steroid injection was marked. Following thorough chlorhexadine preparation of the skin and draping and 1% lidocaine infiltration of the skin entry point and subcutaneous tissues, an 18 gauge Touhy needle was placed and advanced under fluoroscopic guidance and with loss of resistance technique into the L5-S1 epidural space. Needle tip placement and depth were aided and confirmed by fluoroscopy. There was no paresthesia or return of blood or CSF through the needle. 1 mls of Omnipaque 240 was injected with clear epidural spread confirmed with fluoroscopy. 80 mg of Depo-Medrol was? injected. This was followed by 1 ml of preservative-free normal saline to flush the steroid out of the needle. There was no unusual discomfort expressed by Polina. The needle was withdrawn without difficulty. (49 mls of Omnipaque was wasted) Polina was observed and was without hemodynamic, neurologic, or allergic reactions.? Fluoroscopic images were digitally archived. Polina's vital signs were stable throughout the procedure and were as recorded in nursing records. Follow up plans and appointments were discussed with Polina. Post procedure instruction was given as documented in nursing records and having met discharge criteria Polina was discharged from the [facility]. COMMENTS: No apparent complications. Post-procedure pain: VAS= 0/10. Polina to contact [facility] as needed. If at least 50% improvement in pain and/or function for at least 3 months is achieved, this procedure can be repeated. I personally performed this entire procedure. ELGIN TELLO DO, MPH ABPMR-subspecialty board certification in Pain Medicine [facility] Coding Conscious Sedation used for procedure: No CPT Codes: Inj Spine L/S w/Imaging - 33286 ([id number] ~G) Additional Codes: Date of Service (69928) Date of service: 11/09/24 Diagnoses: lumbar radiculopathy
[2024-11-09] MEDS: Omnipaque 240 MG/ML 50 ML BTL IJ (11:53)
[2024-11-09] MEDS: methylPREDNISolone ACETATE 80 MG/ML VIAL IJ (11:54)
[2024-11-09] MEDS: Epidural Tray 1 EACH MC (11:54)
== END 2024-11-09 10:31 | disposition home or self-care (01) ==
LOC: PC 10:33
PROVIDERS: Visit Provider Preventive Medicine Occupational Medicine
DX: M54.16 Radiculopathy, lumbar region (principal)
CPT/HCPCS: 62323; 72100; J1010; Q9967

== ENCOUNTER 2025-02-05 12:08 | Outpatient (REF) | payer OTHER, SELFPAY ==
[2025-02-05 16:31] LABS: Magnesium 1.5 mg/dL (1.6-2.6)
[2025-02-05 16:33] LABS: TSH 0.54 uIU/mL (0.55-4.78)
[2025-02-05 16:35] LABS: ALT 26 U/L (10-49); AST 22 U/L (<34); Albumin 4.8 g/dL (3.2-5.0); Alkaline Phosphatase 41 U/L (46-116); Anion Gap 7.9 mmol/L (3-11); BUN 11 mg/dL (9-23); Bilirubin, Total 0.5 mg/dL (0.2-1.2); CO2 30.1 mmol/L (20.0-31.0); Calcium 10.0 mg/dL (8.3-10.6); Chloride 101 mmol/L (98-107); Glucose 98 mg/dL (74-106); Potassium 4.4 mmol/L (3.5-5.1); Sodium 139 mmol/L (136-145); Total Protein 7.6 g/dL (5.7-8.2)
[2025-02-05 18:16] LABS: Hemoglobin A1C 6.4 % (<5.7)
== END 2025-02-05 12:09 | disposition home or self-care (01) ==
LOC: NCHCN 12:08
PROVIDERS: PCP Nurse Practitioner Family; Visit Provider Nurse Practitioner Family
DX: R25.2 Cramp and spasm (principal); E03.9 Hypothyroidism, unspecified; E11.9 Type 2 diabetes mellitus without complications
CPT/HCPCS: 80053; 83036; 83735; 84443